=== PATIENT | female | born 1960 | race Caucasian/White ===

== ENCOUNTER 2021-02-28 09:18 | Emergency (ER) | payer MEDICARE, SELFPAY ==
[2021-02-28] VITALS (8 sets, daily range): BP systolic 133–164; BP diastolic 74–94; PULSE 87–102; RESP 16–18; TEMP 36.7–37.2; O2SAT 95–99
--- NOTE | ~2021-02-28 | XR_ITS ---
EXAMINATION: XR wrist LT min 3V, XR forearm LT 2V DATE: 02/28/2021 09:56 INDICATION: Left wrist pain and deformity post fall TECHNIQUE: 1. Posteroanterior, ulnar deviation, oblique, and lateral views of the affected wrist were obtained. 2. AP and lateral views of the left forearm were obtained. COMPARISON: none FINDINGS: Left wrist: 4 degrees dorsal displacement and 35 degrees dorsal angulation of a transverse extra-articular fractu re of the metaphysis of the distal left radius. Additional fracture across the base of the ulnar styl oid process which is minimally displaced but with some posterior angulation. No other fractures ident ified. The scapholunate angle appears increased however assessment is limited by the nonstandard posi tioning on the lateral projection resulting from the distal radial fracture. Mild osteoarthritis at t he midcarpal, triscaphe, first carpal metacarpal and first metacarpophalangeal joints. Prominent soft tissue swelling about the left wrist. Left forearm: Normal alignment and joint space at the left elbow with no elbow joint effusion. No fracture in the m ore proximal left forearm or distal humerus. IMPRESSION: 1. Dorsal displacement and angulation of an exophytic refraction the distal left radial metaphysis. 2. Nondisplaced posterior angulated ulnar styloid process fracture. 3. Increased scapholunate angle which could be seen with the tear of the scapholunate ligament victoriae r this could also be artifact of the nonstandard positioning resulting from the displaced and angulat ed radial fracture. Recommend attention on subsequent radiograph following appropriate reduction. Reviewed, dictated and finalized at location A. IMPRESSION: 1. Dorsal displacement and angulation of an exophytic refraction the distal lef t radial metaphysis. 2. Nondisplaced posterior angulated ulnar styloid process fracture. 3. Increased scapholunate angle which could be seen with the tear of the scapho lunate ligament however this could also be artifact of the nonstandard position ing resulting from the displaced and angulated radial fracture. Recommend atten tion on subsequent radiograph following appropriate reduction.
--- NOTE | ~2021-02-28 | XR_ITS ---
EXAMINATION: XR wrist LT 2V DATE: 02/28/2021 11:46 INDICATION: Postreduction left wrist fracture. TECHNIQUE: Posteroanterior and lateral views of the left wrist were obtained. COMPARISON: 02/28/2021 9:46 AM FINDINGS: Interval reduction and splinting of the extraocular fracture at the distal metaphysis of the left rad ius. Slight decrease in the dorsal displacement now measuring 3 mm and mild decrease in now 25 degree s dorsal angulation. No significant change in a minimally displaced ulnar styloid avulsion fracture. No other fractures identified. Again seen is borderline increased scapholunate angle. 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 IMPRESSION: 1. Decrease in now 3 mm dorsal displacement and 25 degrees dorsal angulation of transverse extra johann cular fracture of the distal left radial metaphysis. 2. Unchanged mildly displaced ulnar styloid avulsion fracture. 3. Borderline increased scapholunate angle. Reviewed, dictated and finalized at location A. IMPRESSION: 1. Decrease in now 3 mm dorsal displacement and 25 degrees dorsal angulation of transverse extra articular fracture of the distal left radial metaphysis. 2. Unchanged mildly displaced ulnar styloid avulsion fracture. 3. Borderline increased scapholunate angle.
[2021-02-28] MEDS: MORPHINE SULFATE (*CRX) 4 MG/ML INJ IV PUSH (10:41)
[2021-02-28] MEDS: MIDAZOLAM HCL (*CRX) 2 MG/2 ML VIAL 4 MG (11:30)
[2021-02-28] MEDS: fentaNYL CITRATE INJ (*CRX) 100 MCG/2 ML VIAL ×2 (11:30→11:36)
--- NOTE | 2021-02-28 12:45 | ED.UPPEXIN ---
HPI - Extremity Injury (Upper) General Chief Complaint: Extremity Injury, Upper Stated Complaint: arm injury/fall Time Seen by Provider: 02/28/21 10:30 Source: patient Mode of arrival: ambulatory Limitations: no limitations History of Present Illness HPI narrative: 60-year-old with no major medical problems here with complaints of left wrist pain. Patient states that she lost her balance and fell last night after drinking some wine. She denies any other injuries. MD complaint: injury to: left and wrist Onset (ago): day(s) (1) Other injuries: none Handedness: right Place: home Severity: moderate Severity scale (1-10): 6 Relieving factors: none and immobilization Exacerbating factors: movement of extremity Context: fall Associated symptoms: denies other symptoms Related Data Home Medications Medication Instructions Recorded Confirmed celecoxib [Celebrex] 100 mg PO BID 02/28/21 sertraline [Zoloft] 100 mg PO DAILY 02/28/21 Allergies Allergy/AdvReac Type Severity Reaction Status Date / Time No Known Allergies Allergy Unknown NONE Verified 02/28/21 10:18 Review of Systems Review of Systems: All systems reviewed & are unremarkable except as noted in HPI and below Constitutional: Constitutional: Reports no additional constitutional complaints Eyes: Eyes: Reports no additional eye complaints ENT: Reports system reviewed and no additional complaints, except as documented Cardiovascular: Cardiovascular: Reports no additional cardiovascular complaints Respiratory: Respiratory: Reports no additional respiratory complaints Musculoskeletal: Musculoskeletal: Reports as per HPI Integumentary/Breasts: Skin/Breast: Reports system reviewed and no additional complaints, except as docu Neurologic: Reports system reviewed and no additional complaints, except as documented Exam Narrative: Exam Narrative: GENERAL: Well-appearing, well-nourished, and in no acute distress. HEAD: Normocephalic, atraumatic. EYES: PERRLA and EOMI. NECK: Supple. CHEST: Clear to auscultation. No respiratory distress. HEART: Regular rate and rhythm. No murmur heard. Normal peripheral pulses. ABDOMEN: Soft, nontender, nondistended, normal active bowel sounds. EXTREMITIES: Normal range of motion. No edema. SKIN: Warm, dry, no rash. NEURO: No focal deficits. Alert and oriented x3. PSYCH: Normal mood and affect. Course Course Emergency Course: Inform patient about her x-ray findings needs reduction. Informed her that we would give her sedation for which she agreed. Vital Signs Vital signs: Vital Signs Temperature 37.2 C 02/28/21 09:21 Pulse Rate 102 H 02/28/21 09:21 Respiratory Rate 16 02/28/21 09:21 Blood Pressure 156/91 H 02/28/21 09:21 Pulse Oximetry 99 02/28/21 09:21 Temperature 36.8 C 02/28/21 11:58 Pulse Rate 92 02/28/21 11:58 Respiratory Rate 16 02/28/21 11:58 Blood Pressure 143/83 H 02/28/21 11:58 Pulse Oximetry 99 02/28/21 11:58 Procedures Orthopedic Fracture Reduction Fracture #1: Fracture Reduction date: 02/28/21 Time Out Performed: Yes Side: left Fracture Reduction Location: other (Left wrist) Analgesia: other (50 fentanyl IV and 4 Versed was given) Pre-Procedure Neuro Vascular Exam: abnormal Technique: traction/counter-traction Post Reduction X-rays Demonstrate: acceptable reduction Post-reduction neuro exam: intact Post-reduction vascular exam: intact Splint Applied: Yes Patient Tolerated Procedure: well MDM - Extremity Injury (Upper) Imaging Data Radiologist's impression: ITS Impressions Forearm X-Ray 02/28/21 09:58 IMPRESSION: 1. Dorsal displacement and angulation of an exophytic refraction the distal left radial metaphysis. 2. Nondisplaced posterior angulated ulnar styloid process fracture. 3. Increased scapholunate angle which could be seen with the tear of the scapholunate ligament however this could
== END 2021-02-28 13:03 | disposition home or self-care (01) ==
PROVIDERS: Emergency Provider Family Medicine; PCP Family Medicine
DX: S52.552A Other extraarticular fracture of lower end of left radius, initial encounter for closed fracture (principal); W01.0XXA Fall on same level from slipping, tripping and stumbling without subsequent striking against object, initial encounter
CPT/HCPCS: 25605; 73090; 73100; 73110; 96374; 99285; A4565; J2250; J2270; J3010; J7030

== ENCOUNTER → 2021-03-04 02:15 | Outpatient (CLI) | payer MEDICARE, SELFPAY ==
[2021-03-05 14:19] LABS: SARS-CoV-2 RNA PCR Negative
== END ==
PROVIDERS: PCP Family Medicine; Visit Provider Orthopaedic Surgery
DX: Z01.812 Encounter for preprocedural laboratory examination (principal); Z20.822 Contact with and (suspected) exposure to COVID-19
CPT/HCPCS: C9803; U0003; U0005

== ENCOUNTER 2021-03-05 08:08 | Outpatient (CLI) | payer MEDICARE, SELFPAY ==
--- NOTE | 2021-03-05 08:00 | ECG_ITS ---
Measurements Intervals [place] Rate: 88 P: 70 MO: 163 QRS: 55 QRSD: 94 T: 39 QT: 366 QTc: 443 Interpretive Statements SINUS RHYTHM POSSIBLE LEFT ATRIAL ENLARGEMENT POSSIBLE LEFT VENTRICULAR HYPERTROPHY DELAYED PRECORDIAL R/S TRANSITION BASELINE ARTIFACT- V5-V6 BORDERLINE ECG Electronically Signed On 03-05-2021 8:28:24 CDT by Dedrick Domínguez D.O.
== END 2021-03-05 08:09 | disposition home or self-care (01) ==
LOC: ANHSURGERY 08:11
PROVIDERS: PCP Family Medicine; Visit Provider Orthopaedic Surgery
DX: Z01.810 Encounter for preprocedural cardiovascular examination (principal); F17.210 Nicotine dependence, cigarettes, uncomplicated
CPT/HCPCS: 93005

== ENCOUNTER 2021-03-06 01:24 | Day surgery (SDC) | payer MEDICARE, SELFPAY ==
[2021-03-03 15:10] VITALS: BMI 22.8
--- NOTE | 2021-03-05 12:37 | WPDANESEPPF ---
Anes - Initial Pre Proc Eval Procedure: Operation Date: 03/06/21 10:30 Proposed Procedures p Open Reduction Internal Fixation Left Distal Radius Fracture - Esteban English MD Date/Time: 03/05/21 12:37 Surgeon: Esteban English MD Pre Op Diagnosis: Left distal radius fracture Patient Data Age: 60 Gender: F Height: 1.57 m Weight: 56.8 kg Allergies Allergy/AdvReac Type Severity Reaction Status Date / Time No Known Allergies Allergy Unknown NONE Verified 03/06/21 09:17 Home Medications Medication Instructions Recorded Confirmed Type celecoxib [Celebrex] 100 mg PO BID 02/28/21 03/06/21 History sertraline [Zoloft] 100 mg PO QAM 02/28/21 03/06/21 History hydrocodone 5 mg-acetaminophen 325 1 tablet PO Q6H PRN #40 tablet 03/03/21 03/06/21 Rx mg tablet Patient hx anesthesia problems: none Family hx anesthesia problems: none PMFSH Past Medical History Medical History Depression Fracture of distal radius and ulna Smoker Surgical History Surgical History (Updated 03/05/21 @ 08:53 by Phuong Macdonald) History of appendectomy History of History of hernia repair History of hysterectomy History of parathyroidectomy Social History Social History Smoking packs per day: 0.5 Smoking cigarettes per day: 10.0 Years smoked: 40 Smoking pack-years: 20.00 Smoking status: Current every day smoker Tobacco type: cigarettes Second hand tobacco smoke exposure: Yes Alcohol intake: current Drinks per week: 4 Substance use: never Substance use type: does not use Living arrangements: with family Spiritual care concerns: No Anes - Eval Final PreProcedure Day of Procedure 03/05/21 12:37 Patient weight: normal Heart: regular rate and rhythm Lungs: clear to auscultation and normal air movement Airway: Mallampati scale class II Neurological: alert and oriented Last oral intake: >/= 8 hours ASA classification: II Emergent: no Anesthetic plan: proceed Anesthesia type and monitoring: general LMA Informed Consent: The patient's anesthetic plan and its attendant risks and benefits were discussed with the patient/family/POA. Questions were solicited and answers provided to the satisfaction of the patient/family/POA.
--- NOTE | ~2021-03-06 | XR_ITS ---
EXAMINATION: XR surgery orthopedic DATE: 03/06/2021 12:51 INDICATION: ORIF left wrist fracture TECHNIQUE: 3 fluoroscopic images of the left wrist were obtained during procedure performed by Dr. Hellen cee. Radiologist was not present for the imaging or procedure. The amount of fluoroscopy time us ed during this procedure was 1.1 minutes. COMPARISON: 02/28/2021 FINDINGS: Interval open reduction and volar T plate and screw fixation of the extra articular distal left radia l metaphyseal fracture which is now in near-anatomic alignment. Ulnar styloid avulsion fracture with no significant change in mild medial distraction. Normal alignment and joint spaces of the visualized left carpus. Expected small amount of postoperative gas in the soft tissues of the distal forearm. IMPRESSION: 1. Near-anatomic alignment post volar T plate and screw fixation of the extra-articular distal left r adial fracture. 2. Unchanged mild distraction of an unfixed ulnar styloid avulsion fracture. Reviewed, dictated and finalized at location A. IMPRESSION: 1. Near-anatomic alignment post volar T plate and screw fixation of the extra-a rticular distal left radial fracture. 2. Unchanged mild distraction of an unfixed ulnar styloid avulsion fracture.
[2021-03-06 08:50] VITALS: BP 136/77; PULSE 95; RESP 18; TEMP 36.2; O2SAT 96
[2021-03-06] MEDS: LACTATED RINGERS 1,000 ML 30 ML IV CONT ×2 (09:07→13:07)
--- NOTE | 2021-03-06 10:49 | WPDHPUPDATE1 ---
History and Physical Update Update Date/Time: 03/06/21 10:49 Proceed with open reduction and internal fixation, left distal radius. History and Physical has been reviewed, including an updated exam of the patient. There are NO changes in the patient's condition. Risks, benefits, and alternatives have been discussed and questions answered. Patient agrees to proceed with procedure.
--- NOTE | 2021-03-06 11:23 | WPDANESPNB ---
Anes - Peripheral Nerve Block Date/Time: 03/06/21 11:23 I have discussed with the patient/family/POA the placement of a peripheral nerve block for post-operative pain management, including associated risks, benefits, complications, and side effects. Alternative methods of post-operative analgesia were detailed. Questions were solicited and answers provided to the satisfaction of the patient/family/POA. Time-Out: A pre-procedural Time-Out was completed immediately before starting the procedure and confirmed: Patient Identification, Site, Procedure, Patient Position and the Availability of Requisite Equipment. Clinical Indications: Acute post-operative pain management requested by the operative surgeon. Nerve Block Insertion Note Anes-nerve block: supraclavicular left Patient position: supine Skin prep: chlorhexidine Needle: 22 gauge, stimulating, insulated echogenic needle. Needle length: 80 mm Technique: ultrasound (in plane) Injectate: bupivacaine 0.5% with epi 5 mcg/ml (20cc) Observations: tolerated well Complications: none Procedure start time:: 1115 Procedure end time:: 1120
[2021-03-06] MEDS: ceFAZolin 2 GM/D5W 50 ML 2 GM/50 ML BAG IVPB (11:27)
[2021-03-06 13:07] VITALS: BP 139/84; PULSE 99; RESP 14; TEMP 36.4; O2SAT 100
[2021-03-06 13:20] VITALS: BP 136/75; PULSE 89; RESP 12; O2SAT 100
[2021-03-06 13:35] VITALS: BP 131/81; PULSE 98; RESP 16; O2SAT 94
[2021-03-06 13:45] VITALS: BP 141/58; PULSE 101; RESP 20
[2021-03-06 14:15] VITALS: BP 131/74; PULSE 97; RESP 20
--- NOTE | 2021-03-06 14:33 | P.OP_ITS ---
Procedure Note - Detailed Date of Procedure 03/06/21 Pre-op Diagnosis Left distal radius and ulnar styloid fractures Post-op Diagnosis same Procedure Performed ORIF distal radius extraarticular fracture. Surgeon Esteban English MD Helicopter Repairer Mini Nevarez PA-C Anesthesia general and regional Indications Displaced, unstable distal radius extra-articular fracture with minimally displaced ulnar styloid fragment. Findings Anatomic reduction. Good bone quality. Description of Procedure Physician surgical services assistant, Mini Nevarez PA-C, required for surgery; including patient positioning, draping, tissue retraction, maintaining instrument position, assisting fracture reduction and provisional pin placement, wound closure. Operative details: Preoperative antibiotics were given. A general anesthetic was administered. The hand was prepped and draped in the usual sterile fashion with a well-padded tourniquet. The limb was exsanguinated and the tourniquet inflated to 250 millimeters of mercury. A longitudinal incision was created over the flexor carpi radialis tendon. Dissection was brought down through the sheath. The pronator quadratus was identified and released off of the radius. The fracture was carefully exposed and cleared of debris. Reduction was obtained with traction and manipulation. Fluoroscopy was used to confirm anatomic reduction. The volar plate was placed on the radius and the position was confirmed. A provisional pin were placed. The dynamic cortical screw was applied. The plate was fine tuned and fluoroscopy was use to confirm that the joint would not be violated. Subsequent distal pins and screws were placed, followed by the proximal screws. The wound was irrigated and closed. #1 Vicryl suture was used to reapproximate the pronator quadratus. The tourniquet was released and meticulous hemostasis was confirmed. The skin was closed with 3-0 Monocryl suture and a running 4-0 Monocryl suture. Steri-Strips were applied on the skin. A sterile bulky dressing with a volar splint was applied. Implants [employer] volar locking plate. Narrow. Estimated Blood Loss -30.0 Drains No Pathology none sent Complications No immediate complications Condition stable Disposition PACU
== END 2021-03-06 14:40 | disposition home or self-care (01) ==
PROVIDERS: PCP Family Medicine; Visit Provider Orthopaedic Surgery
PROC: (CPT 25575; principal; 2021-03-06 10:30)
DX: S52.552A Other extraarticular fracture of lower end of left radius, initial encounter for closed fracture (principal); S52.612A Displaced fracture of left ulna styloid process, initial encounter for closed fracture; F32.9 Major depressive disorder, single episode, unspecified; F17.210 Nicotine dependence, cigarettes, uncomplicated; G89.18 Other acute postprocedural pain; W19.XXXA Unspecified fall, initial encounter
CPT/HCPCS: 25607; 64415; 93005; A4565; C9803; J0690; J1100; J2250; J2405; J2704; J3010; J7120; U0003; U0005

== ENCOUNTER 2022-06-26 09:47 | Outpatient (CLI) | payer MEDICARE, SELFPAY ==
--- NOTE | ~2022-06-26 | XR_ITS ---
EXAMINATION:XR_CERV2-3V_CR DATE: 06/26/2022 10:13 INDICATION: Cervical spondylosis with myelopathy TECHNIQUE: AP, lateral, and odontoid views of the cervical spine are provided. COMPARISON: None FINDINGS: There are 2 mm of retrolisthesis of C5 on C6. There are changes of anterior fusion at C5-6. The odontoid is intact. No fracture is identified. The vertebral body heights are maintained. There is moderate loss of intervertebral disc space height at C6-7. Prevertebral soft tissues are normal. T here is moderate multilevel facet and uncovertebral joint osteoarthritis. IMPRESSION: 1. Changes of anterior fusion at C5-6 and mild to moderate cervical spondylosis without acute finding s. Reviewed, dictated and finalized at location F. IMPRESSION: 1. Changes of anterior fusion at C5-6 and mild to moderate cervical spondylosis without acute findings.
== END 2022-06-26 09:48 | disposition home or self-care (01) ==
LOC: ANHIMG 09:51
PROVIDERS: PCP Family Medicine; Visit Provider Neurological Surgery
DX: M47.22 Other spondylosis with radiculopathy, cervical region (principal); Z98.1 Arthrodesis status
CPT/HCPCS: 72040

== ENCOUNTER 2023-01-15 10:40 | Outpatient (CLI) | payer MEDICARE, SELFPAY ==
--- NOTE | ~2023-01-15 | XR_ITS ---
Cervical Spine: AP, lateral, open-mouth views Clinical History: Spondylosis COMPARISON: 06/26/2022 Findings: Stable anterior fusion across the C5-C6 disc space, with stable hardware. Osseous alignment is unchanged, probable grade 1 retrolisthesis of C5 over C6. There is severe degenerative disc narro wing at C6-C7. Impression: No significant interval change. Stable anterior fusion changes at C5-C6. Stable osseous alignment. Advanced degenerative disc narrowing at C6-C7. Reviewed, dictated and finalized at [facility]. Impression: No significant interval change. Stable anterior fusion changes at C5-C6. Stable osseous alignment. Advanced degenerative disc narrowing at C6-C7.
== END 2023-01-15 10:41 | disposition home or self-care (01) ==
PROVIDERS: PCP Family Medicine; Visit Provider Neurological Surgery
DX: M47.812 Spondylosis without myelopathy or radiculopathy, cervical region (principal); M50.323 Other cervical disc degeneration at C6-C7 level; Z98.1 Arthrodesis status
CPT/HCPCS: 72040

== ENCOUNTER 2023-11-05 12:41 | Inpatient (IN) | payer MEDICARE, SELFPAY ==
[2023-11-05] VITALS (36 sets, daily range): BP systolic 93–150; BP diastolic 67–98; PULSE 89–124; RESP 12–30; TEMP 35.6–37.8; O2SAT 96–100; BMI 23.1
--- NOTE | ~2023-11-05 | XR_ITS ---
EXAMINATION: XR chest 1V portable DATE: 11/15/2023 06:09 INDICATION: Left pneumothorax. TECHNIQUE: A single frontal view of the chest was obtained. COMPARISON: Chest single view 11/14/2023 FINDINGS: There are airspace opacities in the lower lung zones. There is a small left pneumothorax. T here are small pleural effusions. The heart size is normal. There is a left chest pacer/defibrillator with lead in right ventricle. IMPRESSION: 1. Stable small left pneumothorax. 2. Stable airspace opacities in the lower lung zones, likely atelectasis. 3. Stable small pleural effusions. Reviewed, dictated and finalized at location E. ER
--- NOTE | ~2023-11-05 | XR_ITS ---
EXAMINATION: XR chest 1V portable DATE: 11/13/2023 05:38 INDICATION: Left pneumothorax. TECHNIQUE: A single frontal view of the chest was obtained. COMPARISON: Chest single view 11/12/2023 FINDINGS: There are airspace opacities in right mid and lower lung zones and left lower lung zone. Th ere is a small left pneumothorax. There is a small right pleural effusion. The heart size is normal. There is a left chest pacer/defibrillator with lead in right ventricle. IMPRESSION: 1. Small left pneumothorax with slight improvement. 2. Worsened airspace opacities in right mid and lower lung zones and left lower lung zone, consistent with atelectasis versus pneumonia. 3. Stable small right pleural effusion. Reviewed, dictated and finalized at location A. TER OPERATOR
--- NOTE | ~2023-11-05 | XR_ITS ---
XR chest 1V portable 11/07/2023 05:34 Indication: Respiratory failure Procedure: AP portable chest Comparison: Comparison to multiple prior studies sequentially, with oldest reviewed study dated 11/05. Findings: Heart size normal. Endotracheal tube tip 4.4 cm above the marli. NG tube in the stomach. N o focal air space disease, pulmonary edema, pleural effusion or suspected pneumothorax. Impression: 1: No acute cardiopulmonary disease. Reviewed, dictated and finalized at location A. PROSPECTING OBSERVER Impression: 1: No acute cardiopulmonary disease.
--- NOTE | ~2023-11-05 | XR_ITS ---
EXAMINATION: XR chest 1V portable DATE: 11/14/2023 05:41 INDICATION: Left pneumothorax. TECHNIQUE: A single frontal view of the chest was obtained. COMPARISON: Chest view 11/13/2023 FINDINGS: There is a small left pneumothorax. There are airspace opacities in right mid and lower lawrence g zones and left lower lung zone. There are small pleural effusions. The heart size is normal. There is a left chest pacer/defibrillator with lead in right ventricle. IMPRESSION: 1. Worsened small left pneumothorax. 2. Stable airspace opacities in right mid and lower lung zones and left lower lung zone, consistent w ith atelectasis versus pneumonia. 3. Small pleural effusions with worsening on the left. Reviewed, dictated and finalized at location A. ROL CHEMIST IMPRESSION: 1. Worsened small left pneumothorax. 2. Stable airspace opacities in right mid and lower lung zones and left lower l jose antonio zone, consistent with atelectasis versus pneumonia. 3. Small pleural effusions with worsening on the left.
--- NOTE | ~2023-11-05 | XR_ITS ---
Portable chest x-ray Comparison: 11/07/2023 Clinical History: Respiratory failure Findings: NG tube in place. Probable COPD. Clear lungs. Cardiomediastinal silhouette is stable. Bon es and soft tissues are unremarkable. Impression: NG tube in place. Clear lungs. Probable COPD. Reviewed, dictated and finalized at location . CTION PRESS OPERATOR Impression: NG tube in place. Clear lungs. Probable COPD.
--- NOTE | ~2023-11-05 | CT_ITS ---
EXAMINATION: CTA chest PE protocol DATE: 11/05/2023 14:47 INDICATION: Sudden onset shortness of breath, cardiac arrest TECHNIQUE: Computed tomography angiography (CTA) of the chest was performed with 100 mL Omnipaque-350 intravenous contrast timed to evaluate the pulmonary arteries. Coronal maximum intensity projection 3D-reconstructions were created by the technologist. The dose-length product (DLP) was 222.93 mGy-cm. Automated exposure control and iterative reconstruction technique were employed. COMPARISON: None. FINDINGS: The pulmonary arteries are well-opacified. Respiratory motion limits evaluation of the colton pheral pulmonary arterial branches. No central pulmonary embolus is identified. There is mild depende nt atelectasis. No pleural effusion or pneumothorax. Cardiomegaly is noted. There is calcified rodriguez ry artery atherosclerosis. The endotracheal tube is approximately 1.6 cm above the marli. The nasoga stric tube is followed as far as the stomach. There is moderate thoracic spondylosis. There are parti ally imaged changes of anterior fusion in the lower cervical spine. IMPRESSION: 1. No central pulmonary embolus identified. Respiratory motion limits evaluation of peripheral pulmon pierce arterial branches. Reviewed, dictated and finalized at location B. II BLOCKER IMPRESSION: 1. No central pulmonary embolus identified. Respiratory motion limits evaluatio n of peripheral pulmonary arterial branches.
--- NOTE | ~2023-11-05 | XR_ITS ---
EXAMINATION: XR chest 1V portable DATE: 11/16/2023 05:49 INDICATION: Left pneumothorax. TECHNIQUE: A single frontal view of the chest was obtained. COMPARISON: Chest single view 11/15/2023, chest CT 11/05/2023 FINDINGS: There is mild atelectasis in the lower lung zones. There is a small left pneumothorax. No p leural effusion. The heart size is normal. There is a left chest pacer/defibrillator with lead in rig ht ventricle. There are changes of anterior fusion procedure in cervical spine. IMPRESSION: 1. Improved small left pneumothorax. 2. Improved mild atelectasis in the lower lung zones. Reviewed, dictated and finalized at location E. METER REPAIRER
--- NOTE | ~2023-11-05 | XR_ITS ---
EXAMINATION: XR chest 1V portable DATE: 11/11/2023 14:19 INDICATION: ICD insertion TECHNIQUE: frontal view of the chest was obtained. COMPARISON: Chest radiograph dated 11/11/2023 at 5:23 AM FINDINGS: New left-sided single lead cardiac pacemaker/defibrillator with lead tip projecting over the apex of the right ventricle. Decreased opacity right lower lung zone most likely atelectasis although differe ntial includes pneumonia. No pulmonary edema, pneumothorax or definitive pleural effusion. The cardio mediastinal silhouette is normal. Instrumented lower cervical anterior spinal fusion. Additional plai n screw fixation at the distal left radius. IMPRESSION: 1. Single lead cardiac pacemaker/defibrillator in expected position with lead tip projecting over the apex of the right ventricle. 2. Improvement in opacities at the right lower lung zone which could represent atelectasis or less li nasim pneumonia. Reviewed, dictated and finalized at location L. SKIMMER IMPRESSION: 1. Single lead cardiac pacemaker/defibrillator in expected position with lead t ip projecting over the apex of the right ventricle. 2. Improvement in opacities at the right lower lung zone which could represent atelectasis or less likely pneumonia.
--- NOTE | ~2023-11-05 | XR_ITS ---
EXAMINATION: XR chest 1V portable Exam Date/Time: 11/14/2023 15:28 ASSOCIATE PROFESSOR OF ENGLISH HISTORY: Follow-up pneumothorax Comparison: 11/14/2023 at 5:37 AM. RESULT: Lines, tubes, and devices: Left chest pacer/AICD with intact lead. Lungs and pleura: Stable small left pneumothorax. Stable right mid and lower lung opacities and righ t costophrenic angle blunting. Stable streaky left basilar opacities and minimal left costophrenic an gle blunting. Cardiomediastinal silhouette: Stable. Other: No acute osseous or upper abdominal finding. IMPRESSION: Stable small left pneumothorax. Stable pulmonary opacities. Reviewed, dictated and finalized at location K. CIATE PROFESSOR OF ENGLISH
--- NOTE | ~2023-11-05 | XR_ITS ---
EXAMINATION: XR chest ET placement INDICATION: Cardiac arrest TECHNIQUE: Portable AP chest at 1310 hours COMPARISON: None FINDINGS: The endotracheal tube projects at the marli. There are retrocardiac airspace opacities on the left. The nasogastric tube is followed as far as the stomach. Its tip is beyond the inferior lázaro in of the radiograph. No pleural effusion or pneumothorax. IMPRESSION: 1. Endotracheal tube projecting at the marli. Tube has been adjusted at the time of interpretation. 2. Retrocardiac airspace opacities on the left, consistent with atelectasis versus pneumonia. Reviewed, dictated and finalized at location B. NDED DAY TEACHER IMPRESSION: 1. Endotracheal tube projecting at the marli. Tube has been adjusted at the ti me of interpretation. 2. Retrocardiac airspace opacities on the left, consistent with atelectasis flaquito yoli pneumonia.
--- NOTE | ~2023-11-05 | XR_ITS ---
Portable chest x-ray Comparison: 11/09/2023 Clinical History: Respiratory failure Findings: There is mild patchy airspace disease the right lung base. Left lung clear. Cardiomediast inal silhouette is stable. Bones and soft tissues are unremarkable. Impression: Right basilar atelectasis/pulmonary edema versus pneumonia. Reviewed, dictated and finalized at [facility]. ICAL INSTRUMENT MAKER Impression: Right basilar atelectasis/pulmonary edema versus pneumonia.
--- NOTE | ~2023-11-05 | XR_ITS ---
EXAMINATION: XR chest 1V portable INDICATION: Pneumothorax TECHNIQUE: Portable AP chest at 1950 hours COMPARISON: 1319 hours FINDINGS: There is a small left pneumothorax without significant change. There are small pleural effu sions, right greater than left. Right basilar airspace opacities persist without significant change. The heart size is normal. A single lead pacemaker of the left chest wall ends with leads in the right ventricle. IMPRESSION: 1. Small left pneumothorax without significant change. 2. Small pleural effusions, stable. 3. Right basilar airspace opacities without significant change, consistent with atelectasis versus pn eumonia. Reviewed, dictated and finalized at location F. FLOW REGULATOR IMPRESSION: 1. Small left pneumothorax without significant change. 2. Small pleural effusions, stable. 3. Right basilar airspace opacities without significant change, consistent with atelectasis versus pneumonia.
--- NOTE | ~2023-11-05 | XR_ITS ---
EXAMINATION: XR chest 2V DATE: 11/12/2023 13:22 INDICATION: Implanted cardiac defibrillator placement. TECHNIQUE: Frontal and lateral views of the chest were obtained. COMPARISON: Chest single view 11/11/2023, chest CT 11/05/2023 FINDINGS: There are airspace opacities at right lung base. There are small pleural effusions. There i s a small left pneumothorax. The heart size is normal. There is a left chest pacer/defibrillator with lead in right ventricle. There are changes of anterior fusion procedure in cervical spine. IMPRESSION: 1. Small pleural effusions. 2. Worsened airspace opacities at right lung base, consistent with atelectasis versus pneumonia. 3. Small left pneumothorax. Reviewed, dictated and finalized at location A. H ROOM TECHNICIAN
--- NOTE | ~2023-11-05 | XR_ITS ---
Portable chest x-ray Comparison: 11/10/2023 Clinical History: Respiratory failure Findings: There is hazy airspace disease at the right lung base. Left lung clear. Cardiomediastinal silhouette is stable. Bones and soft tissues are unremarkable. Impression: Probable right basilar pneumonia versus possibly atelectasis. Reviewed, dictated and finalized at [facility]. DING ARCHITECTURAL DESIGNER Impression: Probable right basilar pneumonia versus possibly atelectasis.
--- NOTE | ~2023-11-05 | CT_ITS ---
EXAMINATION: CT brain wo con INDICATION: Cardiac arrest COMPARISON: None TECHNIQUE: Standard unenhanced head CT. The dose-length product (DLP) was 681.00 mGy-cm. The mA was a djusted according to patient size. Iterative reconstruction technique was employed. FINDINGS: No intracranial hemorrhage, acute infarction, or abnormal mass lesion. The ventricles are n ormal. No abnormal mass effect or midline shift. The tao-white matter differentiation is normal. The basal cisterns are patent. The orbits are normal. The paranasal sinuses, mastoids and calvarium are normal. IMPRESSION: 1. No acute intracranial abnormality. Reviewed, dictated and finalized at location B. OPERATIONS ADVISOR
--- NOTE | ~2023-11-05 | XR_ITS ---
XR chest 1V portable 11/06/2023 08:17 Indication: Respiratory failure Procedure: AP portable chest Comparison: 11/05/2023 Findings: Heart size normal. Endotracheal tube tip approximately 4.4 cm above the marli, although ob scured by overlying NG tube. NG tube in the stomach. No focal air space disease, pulmonary edema, ple ural effusion or suspected pneumothorax. Impression: 1: No acute cardiopulmonary disease. Reviewed, dictated and finalized at location A. ET PRINTING PRESSMEN Impression: 1: No acute cardiopulmonary disease.
--- NOTE | ~2023-11-05 | XR_ITS ---
Portable chest x-ray Comparison: 11/08/2023 Clinical History: Respiratory failure Findings: Lungs are clear, without focal consolidation or pleural effusion. Possible COPD. Cardiome diastinal silhouette is stable. Bones and soft tissues are unremarkable. Impression: Clear lungs. Possible COPD. Reviewed, dictated and finalized at [facility]. K MECHANIC Impression: Clear lungs. Possible COPD.
--- NOTE | ~2023-11-05 | XR_ITS ---
EXAMINATION: XR chest 1V portable INDICATION: Cardiac arrest, ET adjustment TECHNIQUE: Portable AP chest at 1312 hours COMPARISON: 1310 hours FINDINGS: The endotracheal tube has been slightly withdrawn and now ends 1.5 cm above the marli. The nasogastric tube is followed as far as the stomach. Its tip is beyond the inferior margin of the rad iograph. Retrocardiac airspace opacities of the left lung base are unchanged. No pleural effusion or pneumothorax. The heart size is normal. IMPRESSION: 1. Repositioned endotracheal tube ending approximately 1.5 cm above the marli. 2. Retrocardiac airspace opacities, consistent with atelectasis versus pneumonia. Reviewed, dictated and finalized at location B. ERING MACHINE TENDER HELPER IMPRESSION: 1. Repositioned endotracheal tube ending approximately 1.5 cm above the marli. 2. Retrocardiac airspace opacities, consistent with atelectasis versus pneumoni a.
--- NOTE | 2023-11-05 12:54 | PC.NURSE ---
12:54 Pt given 4 mg versed and 100 mg succinylcholine Pt intubated by FABIANO Jaramillo, hospitalist with 7.5 tube, 25 at the lip
--- NOTE | 2023-11-05 12:56 | ECG_ITS ---
Measurements Intervals [place] Rate: 101 P: 15 GA: 186 QRS: 103 QRSD: 194 T: 16 QT: 390 QTc: 506 Interpretive Statements SINUS TACHYCARDIA BASELINE ARTIFACT RIGHT AXIS DEVIATION [QRS AXIS > 100] RIGHT BUNDLE BRANCH BLOCK [120+ ms QRS DURATION, UPRIGHT V1, 40+ ms S IN I/aVL/V4/V5/V6] DIFFUSE ST ABNORMALITY CONSIDER MYOCARDIAL ISCHEMIA INFERIOR AND ANTEROLATERAL LEADS ABNORMAL ECG COMPARED TO ECG 03/05/2021 08:23:21 SINUS TACHYCARDIA NOW PRESENT RIGHT BUNDLE-BRANCH BLOCK NOW PRESENT Electronically Signed On 11-06-2023 14:31:15 NET REPAIRER by Haroldo Batres M.D.
[2023-11-05 13:09] LABS: Hematocrit 41.7 % (37.0-47.0); Hemoglobin 12.9 g/dL (12.0-15.0); Mean Corpuscular HGB Conc 30.9 g/dl (32-36); Mean Corpuscular Hemoglobin 29.4 pg (26-34); Mean Platelet Volume 9.9 fl (7.4-10.4); Platelet Count Result 196 k/mm3 (150-375); Red Blood Count 4.39 M/mm3 (4.2-5.4); Red Cell Distribution Width 13.2 % (11.5-14.5); White Blood Count 7.7 K/mm3 (4.5-10.0)
--- NOTE | 2023-11-05 13:14 | ED.CPR ---
HPI - CPR General Chief Complaint: Cardiac Arrest/CPR Stated Complaint: ROSC Time Seen by Provider: 11/05/23 13:14 History of Present Illness HPI narrative: Patient was sitting watching TV suddenly leaned backward, eyes rolled up, mouth open, gasping for air, no CPR started, 5 minutes later EMT arrived and CPR was started. Patient was shocked twice, monitor showing VFib/ V-tach, on arrival to the ED no pulse, CPR was in progress. patient arrived to the ER 35-40 minutes after the beginning of CPR Was told that patient had tooth removed few days ago and started on antibiotic. Related Data Home Medications Medication Instructions Recorded Confirmed sertraline 100 mg tablet (Zoloft) 100 mg PO QAM 02/28/21 11/05/23 rosuvastatin 5 mg tablet 5 mg PO DAILY 06/26/22 11/05/23 Allergies Allergy/AdvReac Type Severity Reaction Status Date / Time No Known Allergies Allergy Unknown NONE Verified 06/26/22 10:29 Review of Systems Review of Systems: ROS unobtainable: Yes unobtainable due to medical condition PMFSH Past Medical History Medical History Acquired cervical spine ankylosis ACDF @ C5-C6 Depression Fracture of distal radius and ulna HLD (hyperlipidemia) Smoker Surgical History Surgical History History of appendectomy History of History of hernia repair History of hysterectomy History of parathyroidectomy Social History Social History Smoking packs per day: 1 Smoking cigarettes per day: 20.0 Years smoked: 40 Smoking pack-years: 40.00 Smoking status: Current some day smoker Tobacco type: cigarettes Second hand tobacco smoke exposure: No Alcohol intake: current Drinks per week: 4 Substance use: never Substance use type: does not use Living arrangements: with family Spiritual care concerns: No Exam Narrative: General appearance: Well-developed, well-nourished Skin: pale and cold Head: Normocephalic, nontraumatic Eyes: Clear conjunctiva , pupils white dilated not reactive to light bilaterally ENT: Oropharynx lot of clear frothy sputum Chest and respiratory: no air entry without CV are Heart: no heart sounds Abdomen: Soft, , no organomegaly, no bruises, no mass Neurologic: unresponsive, pulseless, CPR in process Course Consultations Consultation #1: DR PATEL CONSULT CARDIOLOGY GET CENTRAL LINE HYPOTHERMIA ICU PROTOCOL Date: 11/05/23 Time: 15:53 Vital Signs Vital signs: Vital Signs Pulse Oximetry 98 11/05/23 13:00 Oxygen Delivery Mechanical Ventilation 11/05/23 13:00 Fraction of Inspired Oxygen 100 11/05/23 13:00 Temperature 37.4 C 11/05/23 18:28 Pulse Rate 100 11/05/23 22:17 Respiratory Rate 23 H 11/05/23 22:17 Blood Pressure 116/67 11/05/23 22:17 Pulse Oximetry 100 11/05/23 20:03 Oxygen Delivery Mechanical Ventilation 11/05/23 20:03 Fraction of Inspired Oxygen 40 11/05/23 20:03 Procedures Central Line Placement Right Femoral: Central Line Date: 11/05/23 Discussed w/ the patient/family/POA,the placement of a central venous catheter, including its clinical necessity/indication & associated potential risks, benifits and alternatives.: Yes The patient/family/POA understand(s) and acknowledge(s) the need to proceed with central venous catheter insertion as an important element of the patient's clinical management.: Yes Time Out Performed: Yes (25) Patient Placed on Monitor/Pulse Ox: Yes Max. Sterile Barrier Technique: Caps, large sterile sheet and hand hygiene Central Line Pr
[2023-11-05 13:20] LABS: Alanine Aminotransferase 56 U/L (6-35); Alkaline Phosphatase 50 U/L (38-126); Anion Gap 13 mmol/L (8-16); Aspartate Amino Transferase 81 U/L (14-36); Bilirubin,Total 0.4 mg/dL (0.2-1.3); Blood Urea Nitrogen 11 mg/dL (7-17); Calcium 8.1 mg/dL (8.4-10.2); Carbon Dioxide 23 mmol/L (22-30); Chloride 96 mmol/L (98-107); Cholesterol 85 mg/dL (0-200); Estimated CRCL calculation 61 ml/min; Estimated Glomerular Filt Rate > 60; Glucose 310 mg/dL (65-110); HDL Direct 22 mg/dL; Potassium 3.2 mmol/L (3.4-5.0); Sodium 132 mmol/L (137-145); Triglycerides 142 mg/dL (<150)
--- NOTE | 2023-11-05 13:23 | PC.NURSE ---
1320: pt ET tube leaking. Dr. Nieto replacing with a size 8 tube. 25 at the lip pt give 4mg of versed, and 100 mg of succinylcholine vent settings- volume of 450, peep of 5, rate of 15.
[2023-11-05 13:31] LABS: INR 1.2; Prothrombin Time 16.1 Seconds (11.1-14.7)
[2023-11-05 13:32] LABS: LDL Cholesterol Direct 55 mg/dL; Partial Thromboplastin Time 34.7 SECONDS (22.3-36.8)
[2023-11-05 13:36] LABS: Troponin I 0.141 ng/mL (0.000-0.034)
[2023-11-05 13:40] LABS: Band Neutrophils Percent 1 % (0-6); Basophils Absolute Manual 0.15 K/mm3 (0.0-0.1); Basophils Percent Manual 2 % (0-1); Eosinophils Absolute Manual 0.15 K/mm3 (0.02-0.5); Eosinophils Percent Manual 2 % (0-4); Lymphocytes Absolute Manual 4.62 K/mm3 (1.1-4.5); Metamyelocytes Percent 4 %; Monocytes Absolute Manual 0.61 K/mm3 (0.1-0.90); Monocytes Percent Manual 8 % (3-9); Myelocytes Percent 17 %; Neutrophils Absolute Manual 0.53 K/mm3 (1.7-7.2); Neutrophils Percent Manual 6 % (46-73); Total Cells Counted 100
[2023-11-05 13:41] LABS: Atypical Lymphocytes Present; Large Platelets Present; Schistocytes None Seen (NORMAL); Smudge Cells MODERATE
[2023-11-05 14:03] LABS: Influenza A QL RT-PCR Negative (Negative); Influenza B QL RT-PCR Negative (Negative); RSV RNA, RT-PCR Negative (Negative); SARS-CoV-2 RNA PCR Negative (Negative)
[2023-11-05] MEDS: MIDAZOLAM HCL (*CRX) 2 MG/2 ML VIAL 4 MG IV PUSH (14:50)
--- NOTE | 2023-11-05 15:03 | ECG_ITS ---
Measurements Intervals [place] Rate: 119 P: 28 DC: 117 QRS: 38 QRSD: 102 T: 221 QT: 408 QTc: 575 Interpretive Statements SINUS TACHYCARDIA WITH SHORT DC INTERVAL ST DEVIATION AND MARKED T-WAVE ABNORMALITY, CONSIDER ANTEROLATERAL ISCHEMIA [-0.5+ mV T WAVE IN I/aVL/V3-V6] ST DEVIATION AND MODERATE T-WAVE ABNORMALITY, CONSIDER INFERIOR ISCHEMIA [-0.1+ mV T WAVE IN II/aVF] ABNORMAL ECG COMPARED TO ECG 11/05/2023 13:08:03 ST ABNORMALITIES MORE PRONOUNCED Electronically Signed On 11-06-2023 14:35:42 DOCUMENT MANAGEMENT CONSULTANT by Haroldo Batres M.D.
[2023-11-05] MEDS: PROPOFOL IV EMULSION 100 ML 1.89 MG IV CONT (15:42)
[2023-11-05 16:07] LABS: Alveolar/Arterial O2 Gradient 199.8 mmHg; Base Excess ABG -8.4 mEq/l (+/-2.0); Fractional Inspired Oxygen 60 %; HCO3 ABG 16.7 mEq/l (22.0-26.0); Oxygen Content ABG 21.5 %vol (16.0-22.0); Oxygen Saturation ABG 99.2 % (95.0-100.0); PO2 ABG 190.6 mmHg (80.0-100.0); PO2 FiO2 Ratio Arterial Blood 3.18 %; Total Hemoglobin 15.5 g/dL (12.0-18.0)
[2023-11-05 16:09] LABS: Device VENTILATOR; Site Drawn RIGHT RADIAL
[2023-11-05 16:10] LABS: Arterial Blood Gas Vent Mode CMV; Arterial Blood Gas Ventilator rate 15 /MIN
[2023-11-05 16:11] LABS: Arterial Blood Gas PEEP 5 cmH2O; Arterial Blood Gas Tidal Volume 450 ml
[2023-11-05 16:17] LABS: Triglycerides 171 mg/dL (<150)
[2023-11-05] MEDS: SODIUM CHLORIDE 0.9% IV 1,000 ML 999 ML IV CONT ×2 (17:33→20:45)
--- NOTE | 2023-11-05 17:39 | PM.IMHP ---
H&P: HPI History of Present Illness Date/Time: 11/05/23 17:39 Chief Complaint: Cardiac Arrest Narrative: 63 y/o F presents here post-cardiac arrest with PMH of cervical ankylosis, depression, smoker, and HLD. HPI obtained through EMS report. Per EMS, they were initially called for shortness of breath and syncope/unresponsiveness. patient's witnessed the patient gasping for air, staring off, and then collapsing. Immediately called EMS. 5 minutes lapsed from EMS call to their arrival. When they arrived patient was slumped over in chair and not breathing. Patient moved to the floor and CPR was initiated at 12:15. No change with Narcan administration x3, epi x3, and 300 mg of amiodarone. Patient initially VFib and was shocked twice prior to arrival to the emergency department. However, arrived to the ED with Kody device in place and in PEA. Start of code time in ED: 12:43. Given bicarb and epi x3. PEA during pulse check x3 with ROSC achieved at 12:52. Patient intubated with 7.5 ETT, however unable to obtain seal despite additional mLs added to cuff and was replaced with an 8.0 ETT tube. Only recent procedure was tooth extraction and was given hydrocodone, otherwise has been well. Last seen by provider through her [facility] network in January of 2023 (neurosurgery) for follow-up visit of neck pain, shoulder pain, and headaches for which she had surgical management with an anterior cervical diskectomy with fusion of C5 and C6 in November 25, 2021. Initial VS at presentation: pulseless, no spontaneous respirations. Post ROSC: 98.7 F, HR 89, RR 15, 99% on vent, and 103/80. later had temp of 100? F and developed tachycardia ranging from 101-124. ED workup showed No leukocytosis, no anemia, sodium 132, K 3.2, creatinine 0.7, glucose 310, lactic acid 3.7, calcium 8.1, mildly bumped LFTs, troponin 0.141, and viral PCR negative. Head CT showed no acute intracranial abnormality. Chest CTA showed no central PE identified, however limited evaluation of peripheral pulmonary artery branches due to respiratory motion. Initial/unofficial EKG reading showed sinus tachycardia, right axis deviation, right bundle-branch block. Repeat EKG showed sinus tachycardia with short MA interval, ST deviation and marked T-wave abnormality consider anterolateral ischemia, awaiting formal read. Review of Systems Review of Systems: All systems reviewed & are unremarkable except as noted in HPI and below [facility] Past Medical History Medical History Acquired cervical spine ankylosis ACDF @ C5-C6 Depression Fracture of distal radius and ulna HLD (hyperlipidemia) Smoker Surgical History Surgical History History of appendectomy History of History of hernia repair History of hysterectomy History of parathyroidectomy Social History Social History Smoking packs per day: 1 Smoking cigarettes per day: 20.0 Years smoked: 40 Smoking pack-years: 40.00 Smoking status: Current some day smoker Tobacco type: cigarettes Second hand tobacco smoke exposure: No Alcohol intake: current Drinks per week: 4 Substance use: never Substance use type: does not use Living arrangements: with family Spiritual care concerns: No Meds Home Medications and Allergies Home Medications Medication Instructions Recorded Confirmed Type sertraline 100 mg tablet (Zoloft) 100 mg PO QAM 02/28/21 11/05/23 History rosuvastatin 5 mg tablet 5 mg PO DAILY 06/26/22 11/05/23 History Allergies Allergy/AdvReac Type Severity Reaction Status Date / Time No Known Allergies Allergy Unknown NONE Verified 06/26/22 10:29 Vital Signs Vital Signs - 24 hr 11/05/23 13:13 11/05/23 13:16 11/05/23 13:25 Temperature 98.7 F Pulse Rate 94 89 Respiratory Rate 15 Blood Pressure 103/80 Pulse Oximetry 99 99 Oxygen Delivery Mechan
[2023-11-05 17:48] LABS: Lactic Acid Reflex 3.7 mmol/L (0.7-2.0)
[2023-11-05] MEDS: SODIUM BICARBONATE 8.4% 50 MEQ/50 ML SYRINGE 63 MEQ IV PUSH (17:48)
[2023-11-05] MEDS: PIPERACILLN/TAZ 3.375GM/NS50ML 3.375 GM/50 ML BAG IVPB ×2 (17:56→23:24)
[2023-11-05] MEDS: SODIUM CHLORIDE 0.9% IV 1,000 ML 150 ML IV CONT (18:00)
[2023-11-05] MEDS: metroNIDAZOLE 500 MG/ISO 100ML 500 MG/100 ML BAG 100 MG IVPB (18:03)
[2023-11-05 19:15] LABS: Appearance Urine Clear (Clear); Bacteria Urine None Seen /hpf; Bilirubin Urine Negative (Negative); Blood Urine 3+ (Negative); Color Urine Yellow (Yellow); Glucose Urine UA 1+ mg/dL (Negative); Ketones Urine Negative (Negative); Leukocyte Esterase Ur Negative LEU/UL (Negative); Nitrate Urine Negative (Negative); Protein Urine 2+ mg/dL (Negative); RBC Urine 51-100 /hpf (0-2); Squamous Epithelial Cell Urine Occasional /hpf (Few); WBC Urine 0-5 /hpf
--- NOTE | 2023-11-05 19:15 | PC.NURSE ---
This patient, Elizabeth Mari, was admitted to Intensive Care Unit-3. Patient/family oriented to hospital policies and general routines including ID bracelet, bed and alarms, visiting hours, pain management, procedures, bathroom and other care routines, personal items, smoking policy, room service/diet, and visiting hours. Information on how to activate the Rapid Response Team has been discussed. Patient/Family are encouraged to report perceived risks to care and to ask questions if they do not understand what they are told or what they should do.
[2023-11-05 19:24] LABS: Add Urine Microscopic? YES
[2023-11-05 19:28] LABS: Magnesium 1.8 mg/dL (1.6-2.3); Phosphorus 2.9 mg/dL (2.5-4.5); Triglycerides 338 mg/dL (<150)
--- NOTE | 2023-11-05 19:30 | ECG_ITS ---
Measurements Intervals [place] Rate: 107 P: 65 AL: 133 QRS: 47 QRSD: 97 T: 235 QT: 404 QTc: 540 Interpretive Statements [address] T[address] DEVIATION AND MARKED T-WAVE ABNORMALITY, CONSIDER ANTEROLATERAL ISCHEMIA [-0.5+ mV T WAVE IN I/aVL/V3-V6] ST DEVIATION AND MODERATE T-WAVE ABNORMALITY, CONSIDER INFERIOR ISCHEMIA [-0.1+ mV T WAVE IN II/aVF] ABNORMAL ECG COMPARED TO ECG 11/05/2023 15:43:57 NO SIGNIFICANT CHANGES Electronically Signed On 11-06-2023 14:40:03 PRICING ANALYST by Haroldo Batres M.D.
[2023-11-05 19:38] LABS: Amphetamine Screen Urine Negative (Negative); Barbiturate Screen Urine Negative (Negative); Benzodiazepines Screen Urine Positive (Negative); Cannabinoid Screen Urine Negative (Negative); Cocaine Screen Urine Negative (Negative); Methadone Screen Urine Negative (Negative); Opiate Screen Urine Positive (Negative); Phencyclidine Screen Urine Negative (Negative)
[2023-11-05] MEDS: KCL 40 MEQ/WATER 100 ML 100 ML 25 ML IVPB (20:10)
[2023-11-05] MEDS: PANTOPRAZOLE SODIUM IV 40 MG VIAL IV PUSH (20:13)
[2023-11-05 20:15] LABS: Alveolar/Arterial O2 Gradient 111.5 mmHg; Base Excess ABG 0.8 mEq/l (+/-2.0); HCO3 ABG 26.1 mEq/l (22.0-26.0); Oxygen Content ABG 19.8 %vol (16.0-22.0); Oxygen Saturation ABG 98.4 % (95.0-100.0); PCO2 ABG 44.1 mmHg (35.0-45.0); Total Hemoglobin 14.4 g/dL (12.0-18.0)
[2023-11-05 20:16] LABS: Device VENTILATOR; Fractional Inspired Oxygen 40 %; Methemoglobin ABG 0.5 %THb (0-1.5); Modified Allen's Test Pass; Oxyhemoglobin 97.2 % THb (90.0-100.0); PO2 FiO2 Ratio Arterial Blood 3.08 %; Reduced Hemoglobin 2.3 %THb (0-5.0); Site Drawn RIGHT RADIAL
[2023-11-05 20:17] LABS: Arterial Blood Gas PEEP 5 cmH2O; Arterial Blood Gas Tidal Volume 400 ml; Arterial Blood Gas Vent Mode CMV; Arterial Blood Gas Ventilator rate 15 /MIN
[2023-11-05 20:35] LABS: Reflex Lactic Acid Yes or No Add Lactic
[2023-11-05 20:40] LABS: NT Pro B Type Natriuretic Pept 3760 pg/mL (19.9-100)
[2023-11-05 20:40] LABS: Glucose Point of Care 128 mg/dl (65-105)
[2023-11-05 20:45] LABS: Hematocrit 42.6 % (37.0-47.0); Hemoglobin 13.9 g/dL (12.0-15.0); Mean Corpuscular HGB Conc 32.6 g/dl (32-36); Mean Corpuscular Hemoglobin 29.8 pg (26-34); Mean Corpuscular Volume 91.2 fl (80-100); Mean Platelet Volume 9.3 fl (7.4-10.4); Platelet Count Result 192 k/mm3 (150-375); Red Blood Count 4.67 M/mm3 (4.2-5.4); Red Cell Distribution Width 13.3 % (11.5-14.5); White Blood Count 16.5 K/mm3 (4.5-10.0)
[2023-11-05 20:56] LABS: INR 1.2; Lactic Acid Reflex 2.3 mmol/L (0.7-2.0); Partial Thromboplastin Time 25.7 SECONDS (22.3-36.8); Prothrombin Time 16.3 Seconds (11.1-14.7)
[2023-11-05 21:03] LABS: Hemoglobin A1C 5.7 % (<5.7)
[2023-11-05 21:05] LABS: Alanine Aminotransferase 264 U/L (6-35); Albumin Level 3.7 g/dL (3.5-5.1); Alkaline Phosphatase 111 U/L (38-126); Anion Gap 4 mmol/L (8-16); Aspartate Amino Transferase 460 U/L (14-36); Bilirubin,Total 0.8 mg/dL (0.2-1.3); Blood Urea Nitrogen 19 mg/dL (7-17); Calcium 7.6 mg/dL (8.4-10.2); Carbon Dioxide 31 mmol/L (22-30); Chloride 105 mmol/L (98-107); Creatine Kinase 1066 U/L (30-135); Estimated CRCL calculation 54 ml/min; Estimated Glomerular Filt Rate > 60; Glucose 149 mg/dL (65-110); Potassium 2.7 mmol/L (3.4-5.0); Sodium 140 mmol/L (137-145)
[2023-11-05] MEDS: MIDAZOLAM HCL (*CRX) 2 MG/2 ML VIAL IV PUSH (21:15)
[2023-11-05] MEDS: MINERAL OIL/WHITE PETROLATUM OINTMENT 1 APPLIC EACH EYE (21:16)
[2023-11-05] MEDS: VANCOMYCIN 1,500 MG/NS 500 ML 1,500 MG/500 ML BAG 250 MG IVPB (21:17)
[2023-11-05] MEDS: MIDAZOLAM 100MG/NS 100ML(*CRX) 100 MG/100 ML BAG IV CONT (21:35)
[2023-11-05 21:39] LABS: MRSA (PCR) NOT DETECTED (NOT DETECTE)
[2023-11-05] MEDS: ASPIRIN 81 MG CHEWABLE TABLET 324 MG FEED TUBE (22:04)
[2023-11-05] MEDS: POTASSIUM CHLORIDE 20 MEQ PACKET (FOR LIQUID) 40 MEQ FEED TUBE (22:04)
[2023-11-05 22:16] LABS: Glucose Point of Care 153 mg/dl (65-105)
[2023-11-05] MEDS: CISATRACURIUM BESYLATE 200 MG in DEXTROSE 5% 80 ML 5.67 ML IV CONT (22:17)
[2023-11-05 23:10] LABS: pH ABG 7.197 (7.350-7.450)
[2023-11-05 23:11] LABS: Base Excess ABG -4.9 mEq/l (+/-2.0); HCO3 ABG 24.5 mEq/l (22.0-26.0); Oxygen Saturation ABG 97.1 % (95.0-100.0); PCO2 ABG 64.5 mmHg (35.0-45.0); PO2 ABG 114.8 mmHg (80.0-100.0); Total Hemoglobin 15.1 g/dL (12.0-18.0)
[2023-11-05 23:12] LABS: Alveolar/Arterial O2 Gradient 96.2 mmHg; Fractional Inspired Oxygen 40 %; Methemoglobin ABG 0.7 %THb (0-1.5); Oxygen Content ABG 20.6 %vol (16.0-22.0); Oxyhemoglobin 96.5 % THb (90.0-100.0); PO2 FiO2 Ratio Arterial Blood 2.87 %; Reduced Hemoglobin 2.8 %THb (0-5.0); Site Drawn RIGHT RADIAL
[2023-11-05 23:13] LABS: Arterial Blood Gas PEEP 5 cmH2O; Arterial Blood Gas Tidal Volume 400 ml; Arterial Blood Gas Vent Mode CMV; Arterial Blood Gas Ventilator rate 15 /MIN; Device VENTILATOR; Modified Allen's Test Pass
[2023-11-05] MEDS: PROPOFOL IV EMULSION 100 ML 13.23 MG IV CONT (23:18)
[2023-11-06] VITALS (57 sets, daily range): BP systolic 82–158; BP diastolic 61–96; PULSE 63–99; RESP 15–24; TEMP 31.6–34.4; O2SAT 96–100
--- NOTE | 2023-11-06 | ECHO_ITS ---
Patient Info Name: Elizabeth Mari Age: 63 years : 1960 Gender: Female Ht: 64 in Wt: 138 lbs BSA: 1.69 m2 HR: 78 bpm BP: 92 / 70 mmHg Heart Rhythm: Sinus Rhythm Technical Quality: Fair Exam Date: 11/06/2023 9:27 AM Exam Location: Echo Lab Exam Room: ICU3 Patient Status: Inpatient Admit Date: 11/05/2023 Staff Ordering Physician: Ella Singh APRN Truck Greaser: Lakia Hobbs RDCS Attending Provider: Liz Richards MD Referring Physician: Samantha TINAJERO; Exam Type: CA echo dop color flow w con Study Info Indications I46.9 - Cardiac arrest, cause unspecified Complete two-dimensional, color flow and Doppler transthoracic echocardiogram is performed with contrast to opacify the left ventricle and to improve the deliniation of the left ventricle endocardial borders. Contrast/Agitated Saline Contrast/Ag. Saline: Definity Amount: 2.00 ml Administered By: Lakia Hobbs [facility] Existing IV Access: Yes IV Access Condition: patent with no signs of infiltration Summary 1. Left ventricular systolic function is severely reduced, estimated at 25-30% with relative sparing of the apex with severe hypokinesis to akinesis of the mid to apical segments. 2. Left ventricular chamber dimension is mildly enlarged. 3. There is no increased left ventricular wall thickness. 4. The left ventricular diastolic function is grade I diastolic dysfunction. 5. There is trace tricuspid valve regurgitation. 6. Mild pulmonary hypertension, estimated pulmonary arterial systolic pressure is 40 mmHg. 7. There is mild mitral valve regurgitation. Left Ventricle Left ventricular chamber dimension is mildly enlarged. Left ventricular systolic function is severely reduced, estimated at 25-30% with relative sparing of the apex with severe hypokinesis to akinesis of the mid to apical segments. There is no increased left ventricular wall thickness. The left ventricular diastolic function is grade I diastolic dysfunction. There is no thrombus visualized in the left ventricle. Right Ventricle Right ventricular chamber dimension is normal. Right ventricular systolic function is normal. Left Atria Left atrial chamber dimension is normal. Right Atria Right atrial chamber dimension is normal. Aortic Valve The aortic valve is not well visualized. There is no aortic valve stenosis. There is no aortic valve regurgitation. Pulmonic Valve The pulmonic valve is not well visualized. Mitral Valve The mitral valve has normal leaflets. There is mild mitral valve regurgitation. Tricuspid Valve The tricuspid valve leaflets are normal. There is trace tricuspid valve regurgitation. Mild pulmonary hypertension, estimated pulmonary arterial systolic pressure is 40 mmHg. Pericardium/Pleural The pericardium appears normal. There is no pericardial effusion. Inferior Vena Cava Dilated inferior vena cava with <50% collapse upon inspiration consistent with significantly elevated right atrial pressure, 15 mmHg. Aorta The aortic root size at the sinus of Valsalva is normal. There is mild aortic atherosclerosis. Left Ventricular Outflow Tract Name Value Normal LVOT 2D LVOT Diameter 2.02 cm LVOT Doppler
[2023-11-06 00:14] LABS: Glucose Point of Care 176 mg/dl (65-105)
[2023-11-06] MEDS: KCL 40 MEQ/WATER 100 ML 100 ML 25 ML IVPB (00:26)
[2023-11-06 01:13] LABS: Glucose Point of Care 185 mg/dl (65-105)
[2023-11-06 02:16] LABS: Glucose Point of Care 180 mg/dl (65-105)
[2023-11-06 03:08] LABS: Glucose Point of Care 161 mg/dl (65-105)
[2023-11-06 03:58] LABS: Glucose Point of Care 130 mg/dl (65-105)
[2023-11-06 05:04] LABS: Base Excess ABG -2.2 mEq/l (+/-2.0); PCO2 ABG 36.1 mmHg (35.0-45.0); PO2 ABG 173.3 mmHg (80.0-100.0); pH ABG 7.403 (7.350-7.450)
[2023-11-06 05:05] LABS: Alveolar/Arterial O2 Gradient 70.4 mmHg; Carboxyhemoglobin 0.3 % THb (0-2.0); Fractional Inspired Oxygen 40 %; Methemoglobin ABG 0.4 %THb (0-1.5); Oxygen Content ABG 20.4 %vol (16.0-22.0); Oxygen Saturation ABG 99.2 % (95.0-100.0); Oxyhemoglobin 97.8 % THb (90.0-100.0); PO2 FiO2 Ratio Arterial Blood 4.33 %; Reduced Hemoglobin 1.5 %THb (0-5.0); Site Drawn RIGHT RADIAL; Total Hemoglobin 14.6 g/dL (12.0-18.0)
[2023-11-06 05:06] LABS: Arterial Blood Gas PEEP 5 cmH2O; Arterial Blood Gas Tidal Volume 400 ml; Arterial Blood Gas Vent Mode CMV; Arterial Blood Gas Ventilator rate 24 /MIN; Device VENTILATOR; Modified Allen's Test Pass
[2023-11-06] MEDS: SODIUM CHLORIDE 0.9% IV 1,000 ML 100 ML IV CONT ×2 (05:16→17:22)
[2023-11-06] MEDS: PIPERACILLN/TAZ 3.375GM/NS50ML 3.375 GM/50 ML BAG IVPB ×4 (05:35→23:59)
[2023-11-06 05:43] LABS: Glucose Point of Care 111 mg/dl (65-105)
[2023-11-06 06:14] LABS: Hemoglobin 13.8 g/dL (12.0-15.0); Mean Corpuscular HGB Conc 32.1 g/dl (32-36); Mean Corpuscular Hemoglobin 29.4 pg (26-34); Mean Corpuscular Volume 91.7 fl (80-100); Mean Platelet Volume 9.6 fl (7.4-10.4); Platelet Count Result 188 k/mm3 (150-375); Red Blood Count 4.69 M/mm3 (4.2-5.4); Red Cell Distribution Width 13.3 % (11.5-14.5); White Blood Count 14.3 K/mm3 (4.5-10.0)
[2023-11-06 06:18] LABS: INR 1.2; Prothrombin Time 15.7 Seconds (11.1-14.7)
[2023-11-06 06:19] LABS: Partial Thromboplastin Time 29.5 SECONDS (22.3-36.8)
[2023-11-06 06:27] LABS: Lactic Acid Reflex 1.5 mmol/L (0.7-2.0)
[2023-11-06 06:36] LABS: Alanine Aminotransferase 239 U/L (6-35); Albumin Level 3.6 g/dL (3.5-5.1); Alkaline Phosphatase 105 U/L (38-126); Anion Gap 5 mmol/L (8-16); Aspartate Amino Transferase 345 U/L (14-36); Bilirubin,Total 0.6 mg/dL (0.2-1.3); Blood Urea Nitrogen 13 mg/dL (7-17); Calcium 6.8 mg/dL (8.4-10.2); Carbon Dioxide 28 mmol/L (22-30); Chloride 106 mmol/L (98-107); Estimated CRCL calculation 70 ml/min; Estimated Glomerular Filt Rate > 60; Glucose 99 mg/dL (65-110); Potassium 3.5 mmol/L (3.4-5.0); Sodium 139 mmol/L (137-145)
[2023-11-06] MEDS: PROPOFOL IV EMULSION 100 ML 13.23 MG IV CONT (07:12)
[2023-11-06 07:16] LABS: Creatine Kinase 1509 U/L (30-135)
[2023-11-06 07:23] LABS: Glucose Point of Care 107 mg/dl (65-105)
--- NOTE | 2023-11-06 08:12 | WPDCNINT ---
Assessment and Plan Assessment and plan (1) Sepsis: Code(s): A41.9 - Sepsis, unspecified organism Status: Acute Assessment and Plan: Although patient met criteria for sepsis on presentation there is no obvious source of infection apart from the tooth infection the patient had prior to presentation. UA does not look infected and CT scan was negative for any evidence of pneumonia. Nasal MRSA screen is negative PCR for RSV COVID and influenza is negative Blood cultures have been sent and are pending I will continue empiric Zosyn but discontinue vancomycin at this time Check procalcitonin level (2) Cardiac arrest with ventricular fibrillation: Code(s): I46.9 - Cardiac arrest, cause unspecified; I49.01 - Ventricular fibrillation Status: Acute Assessment and Plan: VFib cardiac arrest. Unknown etiology at this time CTA negative for PE Echo ordered and pending EKG showed ST and T-wave abnormality but no ST elevation. Her troponin is elevated but that could be just from the cardiac arrest and CPR Continue aspirin. Hold beta-kesha due to soft blood pressure. Hold statin due to elevated liver enzymes EKG reviewed this morning and shows prolonged QTC. I will slowly wean off propofol and switch to fentanyl infusion Discussed with Cardiology. Will start heparin infusion and obtain echocardiogram this morning. (3) Hyperglycemia: Code(s): R73.9 - Hyperglycemia, unspecified Status: Acute Assessment and Plan: Sliding scale insulin (4) Acute hypokalemia: Code(s): E87.6 - Hypokalemia Status: Acute Assessment and Plan: Potassium was replaced and now at acceptable number considering patient is could on hypothermia. Monitor (5) Acute respiratory failure: Code(s): J96.00 - Acute respiratory failure, unspecified whether with hypoxia or hypercapnia Status: Acute Assessment and Plan: Acute Respiratory failure secondary to cardiac arrest CTA negative for PE Continue full mechanical ventilation support to prevent hypoxemia/hypercarbia and end organ damage. ABG and PCXR reviewed Decrease rate to 22 and FiO2 30% Low tidal volume ventilation strategy to prevent volutrauma (6) Diarrhea: Code(s): R19.7 - Diarrhea, unspecified Status: Acute Assessment and Plan: Check C diff Empiric vancomycin oral (7) Elevated troponin: Code(s): R79.89 - Other specified abnormal findings of blood chemistry Status: Acute Assessment and Plan: See above (8) Elevated liver enzymes: Code(s): R74.8 - Abnormal levels of other serum enzymes Status: Acute Assessment and Plan: Likely shock liver and rhabdomyolysis Monitor levels Normal bilirubin and alkaline phosphatase (9) Rhabdomyolysis: Code(s): M62.82 - Rhabdomyolysis Status: Acute Assessment and Plan: Continue IV fluids and monitor CK levels (10) Anoxic brain injury: Code(s): G93.1 - Anoxic brain damage, not elsewhere classified Status: Acute Assessment and Plan: Currently started on hypothermia protocol and will be reassessed once complete and sedation wears off. Head CT on presentation was negative for any acute change Plan DVT prophylaxis -start Lovenox Stress ulcer prophylaxis -Protonix Nutrition - npo Code Status - Full Code Spoke to and updated son at bedside. I answered all his questions Total Critical Care Time - 45 minutes Due to a high probability of clinically significant, life threatening deterioration, the patient required my highest level of preparedness to intervene emergently and I personally spent this critical care time directly and personally managing the patient. This critical care time included obtaining a history; examining the patient; pulse oximetry; ordering and review of studies; arranging urgent treatment with development of a management plan; evaluation of patient's response to treatment;
[2023-11-06] MEDS: FENTANYL 2,500MCG/NS250ML(*CRX 2,500 MCG/250 ML BAG 50 MCG IV CONT (08:43)
[2023-11-06] MEDS: NOREPINEPHRINE 8 MG/D5W 250 ML 8 MG/250 ML BAG 9.38 MG IV CONT ×2 (08:46→08:47)
[2023-11-06 08:47] LABS: Glucose Point of Care 104 mg/dl (65-105)
--- NOTE | 2023-11-06 09:11 | PM.CNCAR ---
Assessment and Plan Assessment and plan (1) Cardiac arrest with ventricular fibrillation: Code(s): I46.9 - Cardiac arrest, cause unspecified; I49.01 - Ventricular fibrillation Status: Acute Assessment and Plan: Patient presents with sudden unresponsiveness witnessed by her at home related to ventricular fibrillation status post defibrillation followed by PEA arrest successfully resuscitated. Continue cooling protocol. ECG very abnormal diffuse deep T-wave inversions concerning for ischemia without clear ST elevations. These abnormalities have progressed from admission. Her son bedside echo revealed dilated LV severely depressed function EF 25-30% with relative sparing of the bases with mid apical regions severely hypokinetic to akinetic. Primary concern for underlying CAD acute coronary syndrome precipitating a VF arrest, however, discussed with at bedside potential for takotsubo cardiomyopathy. -discussed with my interventional partner Dr. Friedman clinical status. After discussion and review of ECGs agrees take patient to cardiac catheterization lab delineation of coronary anatomy. Discussed with patient's at bedside arise understanding and agreed with care. Risks, benefits alternatives discussed. -aspirin 81 mg daily. Statin on hold secondary to significant LFT abnormalities. Unable to utilize beta-kesha or other sporting medication due to hypotension/shock. Explained patient's patient at high risk for complications. Bedside cursory review of echo revealed EF estimated proximally 25-30% with sparing of the bases with severe hypokinesis to akinesis of the mid to apical segments throughout. Primary concern secondary to severe underlying obstructive CAD, however, alternative such as takotsubo cardiomyopathy remain a consideration. Per Dr. Friedman hold off on initiation of systemic anticoagulation as patient will be going to cardiac catheterization lab. Further recommendations to follow thereafter. Patient remains critically ill but is maintaining sinus rhythm on telemetry without recurrent VT or VF. She received 300 mg IV amiodarone in the field but no subsequent antiarrhythmic therapy. Monitor replete electrolytes potassium around 4.0, magnesium around 2.0. I spent 84 minutes in the care of this patient including but not limited to bedside discussions with family, patient examination, discussions with colleagues, chart review, medical decision making, and documentation. (2) Non-STEMI (non-ST elevated myocardial infarction): Code(s): I21.4 - Non-ST elevation (NSTEMI) myocardial infarction Status: Acute Assessment and Plan: Troponin elevation peaking thus far 1.6, repeat troponin for trend. Discussed primary concern with regards underlying CAD and acute myocardial infarction is probable contribution, however, alternative explanation possible toxic supine cardiomyopathy discussed as well. Appropriate medical therapy as tolerated. Aspirin 81 mg. Depending on coronary angiography and intervention dual antiplatelet therapy anticipated if intervention performed. Systemic anticoagulation based upon results of coronary angiography per Interventional Cardiology. Statin therapy on hold secondary to significant abnormalities in liver function test. No pulmonary embolism on CT angiogram of the chest. (3) Shock: Code(s): R57.9 - Shock, unspecified Status: Acute Assessment and Plan: Patient has just recently been started on a Levophed for supportive hypotension. Patient with significant elevation in LFTs likely secondary to cardiac arrest. (4) Cardiomyopathy: Code(s): I42.9 - Cardiomyopathy, unspecified Status: Acute Assessment and Plan: New diagnosis, LV dilated suggestive more of a chronic process it with EF 25-30% with wall motion abnormalities as discussed above. Etiology unclear primary concern underlying CAD. Aggressive medical management as appropriat
[2023-11-06] MEDS: PANTOPRAZOLE SODIUM IV 40 MG VIAL IV PUSH (09:15)
[2023-11-06] MEDS: MINERAL OIL/WHITE PETROLATUM OINTMENT 1 APPLIC EACH EYE ×3 (09:16→19:36)
[2023-11-06] MEDS: ASPIRIN 325 MG TABLET FEED TUBE (09:17)
[2023-11-06] MEDS: PERFLUTREN LIPID MICROSPHERES 1.5 ML VIAL DILUTED TO 10 ML TOTAL VOLUME IV PUSH (10:00)
--- NOTE | 2023-11-06 10:12 | IVDEFINITY ---
Prior to administration of IV Definity the patient was educated on the risks and benefits of the imaging enhancing agent including potential adverse side effects. The patient verbalized understanding. Allergies were verified. No exclusion criteria were identified and at least one of the following inclusion criteria were met: 1) physician request, 2) patient technically difficult to image (per the [place] [employer] guidelines of two or more segments not discernable within the apical view), or 3) questionable left ventricular function. ?
[2023-11-06] MEDS: LACTATED RINGERS 1,000 ML 999 ML IV CONT (10:24)
[2023-11-06 10:27] LABS: Basophils Percent Auto 0.2 % (0.2-1.2); Eosinophils Percent Auto 0.2 % (0-4.4); Hemoglobin 12.5 g/dL (12.0-15.0); Immature Granulocyte Absolute 0.07 K/mm3 (0.00-0.031); Immature Granulocyte Percent A 0.5 % (0-0.5); Lymphocytes Percent Auto 8.6 % (18.3-44.2); Mean Corpuscular HGB Conc 32.9 g/dl (32-36); Mean Corpuscular Hemoglobin 29.7 pg (26-34); Mean Corpuscular Volume 90.3 fl (80-100); Mean Platelet Volume 9.4 fl (7.4-10.4); Monocytes Absolute Auto 0.6 K/mm3 (0.1-0.6); Neutrophils Percent Auto 85.5 % (45.5-73.1); Platelet Count Result 192 k/mm3 (150-375); Red Blood Count 4.21 M/mm3 (4.2-5.4); Red Cell Distribution Width 13.4 % (11.5-14.5); White Blood Count 12.9 K/mm3 (4.5-10.0)
[2023-11-06 10:38] LABS: Alanine Aminotransferase 191 U/L (6-35); Albumin Level 2.8 g/dL (3.5-5.1); Alkaline Phosphatase 80 U/L (38-126); Anion Gap 9 mmol/L (8-16); Aspartate Amino Transferase 212 U/L (14-36); Bilirubin,Total 0.7 mg/dL (0.2-1.3); Blood Urea Nitrogen 12 mg/dL (7-17); Calcium 6.4 mg/dL (8.4-10.2); Carbon Dioxide 19 mmol/L (22-30); Chloride 108 mmol/L (98-107); Estimated CRCL calculation 83 ml/min; Estimated Glomerular Filt Rate > 60; Glucose 128 mg/dL (65-110); INR 1.3; Potassium 3.4 mmol/L (3.4-5.0); Prothrombin Time 16.5 Seconds (11.1-14.7); Sodium 136 mmol/L (137-145)
[2023-11-06 10:39] LABS: Partial Thromboplastin Time 29.5 SECONDS (22.3-36.8)
--- NOTE | 2023-11-06 10:57 | PC.NURSE ---
Patient going to pie bakery laborer at this time 1058. Dr. Feliz notified and aware that patient will be off hypothermia protocol while up in pie bakery laborer and to re cool patient once she is back in ICU-3.
[2023-11-06 11:02] LABS: Troponin I 0.404 ng/mL (0.000-0.034)
--- NOTE | 2023-11-06 11:12 | WPDHPUPDATE1 ---
History and Physical Update Update Date/Time: 11/06/23 11:12 History and Physical has been reviewed, including an updated exam of the patient. There are NO changes in the patient's condition. Risks, benefits, and alternatives have been discussed and questions answered. Patient agrees to proceed with procedure.
--- NOTE | 2023-11-06 11:13 | WPDHPUPDATE1 ---
History and Physical Update Update Date/Time: 11/06/23 11:13 History and Physical has been reviewed, including an updated exam of the patient. There are NO changes in the patient's condition. Risks, benefits, and alternatives have been discussed and questions answered. Patient agrees to proceed with procedure.
--- NOTE | 2023-11-06 11:13 | P.PCNCC_ITS ---
Cardiac Cath Procedure Note Date of procedure:: 11/06/23 Performing physician:: Ubaldo Friedman MD Date of service 11/06/2023 Indication:: VFib arrest, abnormal ischemic changes on EKG Brief clinical history:: Patient is a 63-year-old female with past medical history significant tobacco abuse, hyperlipidemia otherwise reasonably healthy who is brought in by EMS after sudden episode of nonresponsiveness and reported VF arrest.? This is witnessed by her who was sitting next to her who summoned EMS immediately with reported arrival and initiation of CPR and less than 5 minutes. her EKG shows severe ischemic changes with very deep T inversions. Troponin peaked at 1.6. Requiring low-dose Levophed. Procedure Procedure performed:: 1-Selective left and right coronary angiogram. 2-Left heart catheterization with measurement of LVEDP and measurement of gradient across aortic valve. 3- LV angiogram. 4-Right common femoral arterial angiogram. 5-Deployment of 6 [place] Angio-Seal. Sedation/Medication given:: Moderate sedation. Access site:: Right common femoral artery. Estimated blood loss:: 10cc Procedure note:: After informed consent patient was brought in to culture media laboratory assistant with the was draped and prepped in usual manner. Theright groin was infiltrated using 1% lidocaine. Five [place] sheath was obtained using micropuncture needle and the modified Seldinger technique. Selective left coronary angiogram was done using JL4 catheter with the tip of the catheter placed in the left main coronary artery. Selective right coronary angiogram was done using JR4 catheter with the tip of the catheter placed to the right coronary artery. After that 5 [place] pigtail catheter was advanced across the aortic valve into the left ventricle with measurement of LVEDP and measurement of gradient across aortic valve. Right common femoral arterial angiogram was done. Findings:: 1- left coronary artery is a large artery that divides into large LAD, large circumflex artery. Left main Has minimal irregularities 2- left anterior descending artery is a large artery that runs and wraps around the apex. has diffuse minimal irregularities. The mid segment medium size to large diagonal branch that has ostial 30% and mid 40%. 3- leftcircumflex artery is a large artery Has minimal irregularities. In the mid segment large OM1 free of disease. 4- right coronary artery is Large artery and dominant has minimal irregularities. It has minimal calcification as well. 5- LVEDP was 10 mm Hgand no gradient across aortic valve. 6- LV angiogram shows dilated ventricle with estimated ejection fraction 20%. Global hypokinesis. 6- opening arterial pressure was 157/86 and closing pressure was 131/94 7- right femoral artery angiogram shows no significant disease in the right common femoral artery. Assessment and Plan Assessment and plan (1) Non-STEMI (non-ST elevated myocardial infarction): Code(s): I21.4 - Non-ST elevation (NSTEMI) myocardial infarction Status: Acute Assessment and Plan: No evidence of obstructive CAD. - ejection fraction is severely reduced with global hypokinesis. - continue low-dose Levophed. - optimize CHF management.
--- NOTE | 2023-11-06 11:15 | ECG_ITS ---
Measurements Intervals [place] Rate: 69 P: 77 ME: 140 QRS: 68 QRSD: 115 T: 248 QT: 513 QTc: 552 Interpretive Statements SINUS RHYTHM MODERATE INTRAVENTRICULAR CONDUCTION DELAY [110+ ms QRS DURATION] ST DEVIATION AND MARKED T-WAVE ABNORMALITY, CONSIDER ANTEROLATERAL ISCHEMIA [-0.5+ mV T WAVE IN I/aVL/V3-V6] ST DEVIATION AND MODERATE T-WAVE ABNORMALITY, CONSIDER INFERIOR ISCHEMIA [-0.1+ mV T WAVE IN II/aVF] QT PROLONGATION ABNORMAL ECG COMPARED TO ECG 11/05/2023 22:55:56 HEART RATE HAS DECREASED INTRAVENTRICULAR CONDUCTION DELAY NOW PRESENT Electronically Signed On 11-06-2023 14:44:17 FRONT END DEVELOPER DESIGNER by Haroldo Batres M.D.
[2023-11-06 11:44] LABS: Procalcitonin 29.5 ng/mL
[2023-11-06 13:10] LABS: Glucose Point of Care 115 mg/dl (65-105)
[2023-11-06] MEDS: ENOXAPARIN 40 MG/0.4 ML SYRINGE SUB-Q (13:20)
[2023-11-06] MEDS: POTASSIUM BICARBONATE 25 MEQ TABEF FEED TUBE (13:20)
[2023-11-06 15:00] LABS: Glucose Point of Care 116 mg/dl (65-105)
[2023-11-06 15:42] LABS: Toxigenic C. Diff NEGATIVE (NEGATIVE)
[2023-11-06 17:13] LABS: Glucose Point of Care 100 mg/dl (65-105)
[2023-11-06] MEDS: MIDAZOLAM 100MG/NS 100ML(*CRX) 100 MG/100 ML BAG IV CONT (19:17)
[2023-11-06] MEDS: CENTRAL LINE FLUSH 10 ML IV PUSH (19:36)
[2023-11-06 19:40] LABS: Glucose Point of Care 97 mg/dl (65-105)
[2023-11-06 20:58] LABS: Glucose Point of Care 111 mg/dl (65-105)
[2023-11-06 22:01] LABS: Glucose Point of Care 101 mg/dl (65-105)
[2023-11-06 23:06] LABS: Glucose Point of Care 91 mg/dl (65-105)
[2023-11-07] VITALS (52 sets, daily range): BP systolic 80–132; BP diastolic 56–80; PULSE 66–140; RESP 12–23; TEMP 32.5–38.6; O2SAT 91–100
[2023-11-07 00:25] LABS: Glucose Point of Care 87 mg/dl (65-105)
[2023-11-07 02:15] LABS: Glucose Point of Care 105 mg/dl (65-105)
[2023-11-07] MEDS: CISATRACURIUM BESYLATE 200 MG in DEXTROSE 5% 80 ML IV CONT (03:00)
--- NOTE | 2023-11-07 03:14 | PC.NURSE ---
A new bag of Nimbex was hung on day shift and not scanned into the MAR. Bag scanned and amount infused updated on NOV.
[2023-11-07 03:20] LABS: Glucose Point of Care 86 mg/dl (65-105)
[2023-11-07] MEDS: SODIUM CHLORIDE 0.9% IV 1,000 ML 100 ML IV CONT (04:24)
[2023-11-07 04:30] LABS: Glucose Point of Care 83 mg/dl (65-105)
[2023-11-07 04:44] LABS: Lactic Acid Reflex 0.8 mmol/L (0.7-2.0)
[2023-11-07 04:45] LABS: Alanine Aminotransferase 252 U/L (6-35); Albumin Level 2.8 g/dL (3.5-5.1); Alkaline Phosphatase 77 U/L (38-126); Anion Gap 7 mmol/L (8-16); Aspartate Amino Transferase 206 U/L (14-36); Bilirubin,Total 0.5 mg/dL (0.2-1.3); Blood Urea Nitrogen 10 mg/dL (7-17); Calcium 6.3 mg/dL (8.4-10.2); Carbon Dioxide 20 mmol/L (22-30); Chloride 111 mmol/L (98-107); Estimated CRCL calculation 70 ml/min; Estimated Glomerular Filt Rate > 60; Glucose 98 mg/dL (65-110); Magnesium 1.5 mg/dL (1.6-2.3); Sodium 138 mmol/L (137-145)
[2023-11-07 05:08] LABS: Alveolar/Arterial O2 Gradient 59.8 mmHg; Base Excess ABG -6.7 mEq/l (+/-2.0); Carboxyhemoglobin 0.3 % THb (0-2.0); Fractional Inspired Oxygen 25 %; HCO3 ABG 19.3 mEq/l (22.0-26.0); Methemoglobin ABG 0.4 %THb (0-1.5); Oxygen Content ABG 17.2 %vol (16.0-22.0); Oxygen Saturation ABG 92.7 % (95.0-100.0); Oxyhemoglobin 92.1 % THb (90.0-100.0); PCO2 ABG 40.1 mmHg (35.0-45.0); PO2 ABG 70.8 mmHg (80.0-100.0); PO2 FiO2 Ratio Arterial Blood 2.83 %; Reduced Hemoglobin 7.2 %THb (0-5.0); Total Hemoglobin 13.3 g/dL (12.0-18.0)
[2023-11-07 05:10] LABS: Arterial Blood Gas PEEP 5 cmH2O; Arterial Blood Gas Tidal Volume 400 ml; Arterial Blood Gas Vent Mode CMV; Arterial Blood Gas Ventilator rate 22 /MIN; Device VENTILATOR; Modified Allen's Test Unable to perform; Site Drawn RIGHT RADIAL
[2023-11-07 05:39] LABS: Creatine Kinase 827 U/L (30-135)
[2023-11-07] MEDS: PIPERACILLN/TAZ 3.375GM/NS50ML 3.375 GM/50 ML BAG IVPB ×3 (06:03→17:07)
[2023-11-07 06:34] LABS: Hematocrit 38.7 % (37.0-47.0); Hemoglobin 12.6 g/dL (12.0-15.0); Mean Corpuscular HGB Conc 32.6 g/dl (32-36); Mean Corpuscular Hemoglobin 29.9 pg (26-34); Mean Corpuscular Volume 91.7 fl (80-100); Mean Platelet Volume 9.5 fl (7.4-10.4); Platelet Count Result 179 k/mm3 (150-375); Red Blood Count 4.22 M/mm3 (4.2-5.4); White Blood Count 13.1 K/mm3 (4.5-10.0)
[2023-11-07] MEDS: CENTRAL LINE FLUSH 10 ML IV PUSH ×3 (06:41→21:00)
--- NOTE | 2023-11-07 07:49 | WPDINTPN ---
Progress Note: A&P Assessment and Plan (1) Sepsis: Code(s): A41.9 - Sepsis, unspecified organism Status: Acute Assessment and Plan: Although patient met criteria for sepsis on presentation there is no obvious source of infection apart from the tooth infection the patient had prior to presentation. UA does not look infected and CT scan was negative for any evidence of pneumonia. Nasal MRSA screen is negative PCR for RSV COVID and influenza is negative Blood cultures have been sent and are pending Vancomycin discontinued procalcitonin level higher 29.5 Continue Zosyn (2) Cardiac arrest with ventricular fibrillation: Code(s): I46.9 - Cardiac arrest, cause unspecified; I49.01 - Ventricular fibrillation Status: Acute Assessment and Plan: VFib cardiac arrest. Patient appears to have non ischemic cardiomyopathy CTA negative for PE EKG showed ST and T-wave abnormality but no ST elevation. Her troponin was elevated but that could be just from the cardiac arrest and CPR 11/06 Echo Summary ? 1. Left ventricular systolic function is severely reduced, estimated at 25-30% with relative sparing of the apex with severe hypokinesis to akinesis of the mid to apical segments. ? 2. Left ventricular chamber dimension is mildly enlarged. ? 3. There is no increased left ventricular wall thickness. ? 4. The left ventricular diastolic function is grade I diastolic dysfunction. ? 5. There is trace tricuspid valve regurgitation. ? 6. Mild pulmonary hypertension, estimated pulmonary arterial systolic pressure is 40 mmHg. ? 7. There is mild mitral valve regurgitation. 11/06 cardiac catheterization ? No evidence of obstructive CAD. - ejection fraction is severely reduced with global hypokinesis. Continue aspirin. Currently patient is on Levophed. Once she is weaned off patient will be started on low-dose beta-kesha and MOISÉS-inhibitor. Hold statin due to elevated liver enzymes QTC has normalized since psis propofol was discontinued Cardiology is following and further recommendations as per Cardiology Cautious IV fluids (3) Hyperglycemia: Code(s): R73.9 - Hyperglycemia, unspecified Status: Acute Assessment and Plan: Sliding scale insulin (4) Acute hypokalemia: Code(s): E87.6 - Hypokalemia Status: Acute Assessment and Plan: Potassium replacement ordered (5) Acute respiratory failure: Code(s): J96.00 - Acute respiratory failure, unspecified whether with hypoxia or hypercapnia Status: Acute Assessment and Plan: Acute Respiratory failure secondary to cardiac arrest CTA negative for PE ABG and PCXR reviewed Decrease rate to 22 and FiO2 25 % Low tidal volume ventilation strategy to prevent volutrauma Will perform sedation holiday and weaning trial (6) Diarrhea: Code(s): R19.7 - Diarrhea, unspecified Status: Acute Assessment and Plan: Diet improved c diff negative Discontinue vancomycin oral (7) Elevated troponin: Code(s): R79.89 - Other specified abnormal findings of blood chemistry Status: Acute Assessment and Plan: See above (8) Elevated liver enzymes: Code(s): R74.8 - Abnormal levels of other serum enzymes Status: Acute Assessment and Plan: Likely shock liver and rhabdomyolysis Monitor levels Normal bilirubin and alkaline phosphatase (9) Rhabdomyolysis: Code(s): M62.82 - Rhabdomyolysis Status: Acute Assessment and Plan: Continue IV fluids and monitor CK levels which is improving Switch fluids to LR (10) Anoxic brain injury: Code(s): G93.1 - Anoxic brain damage, not elsewhere classified Status: Acute Assessment and Plan: Patient was started on hypothermia protocol and now off Nimbex and rewarming She is following commands with all [address] on presentation was negative for any acute change (11) Cardiomyopathy: Code(s): I
[2023-11-07 07:51] LABS: Phosphorus 2.6 mg/dL (2.5-4.5)
[2023-11-07 07:57] LABS: Glucose Point of Care 92 mg/dl (65-105)
[2023-11-07] MEDS: MINERAL OIL/WHITE PETROLATUM OINTMENT 1 APPLIC EACH EYE ×4 (08:00→21:00)
[2023-11-07] MEDS: ENOXAPARIN 40 MG/0.4 ML SYRINGE SUB-Q (08:10)
[2023-11-07] MEDS: ASPIRIN 325 MG TABLET FEED TUBE (08:10)
[2023-11-07] MEDS: POTASSIUM CHLORIDE 20 MEQ PACKET (FOR LIQUID) 40 MEQ FEED TUBE ×3 (08:11→16:23)
[2023-11-07] MEDS: LACTATED RINGERS 1,000 ML 100 ML IV CONT (08:11)
[2023-11-07] MEDS: MAGNESIUM SULFATE 3GM/D5W100ML 3 GM/100 ML BAG IVPB (08:26)
[2023-11-07] MEDS: PANTOPRAZOLE SODIUM IV 40 MG VIAL IV PUSH (08:26)
[2023-11-07] MEDS: CALCIUM GLUC 2,000 MG/NS 100ML 2,000 MG/100 ML BAG 100 MG IVPB (08:27)
[2023-11-07 08:44] LABS: Alveolar/Arterial O2 Gradient 65.3 mmHg; Base Excess ABG -4.8 mEq/l (+/-2.0); Carboxyhemoglobin 0.3 % THb (0-2.0); Fractional Inspired Oxygen 25 %; HCO3 ABG 20.9 mEq/l (22.0-26.0); Methemoglobin ABG 0.5 %THb (0-1.5); Oxygen Content ABG 17.3 %vol (16.0-22.0); Oxygen Saturation ABG 91.1 % (95.0-100.0); Oxyhemoglobin 91.7 % THb (90.0-100.0); PCO2 ABG 40.9 mmHg (35.0-45.0); PO2 ABG 64.4 mmHg (80.0-100.0); PO2 FiO2 Ratio Arterial Blood 2.58 %; Reduced Hemoglobin 7.5 %THb (0-5.0); Total Hemoglobin 13.4 g/dL (12.0-18.0); pH ABG 7.326 (7.350-7.450)
[2023-11-07 08:45] LABS: Modified Allen's Test Pass; Site Drawn RIGHT RADIAL
[2023-11-07 08:46] LABS: Arterial Blood Gas PEEP 5 cmH2O; Arterial Blood Gas Pressure Support 5 cmH2O; Arterial Blood Gas Vent Mode SPONTANEOUS; Device VENTILATOR
--- NOTE | 2023-11-07 09:08 | PC.NURSE ---
Extubated to 1 L NC. Reviewed precautions with patient and family.
[2023-11-07] MEDS: METOPROLOL TARTRATE 12.5 MG TABLET PO ×2 (09:24→21:24)
--- NOTE | 2023-11-07 09:49 | PM.PNCARD ---
Progress Note: A&P Assessment and Plan (1) Cardiac arrest with ventricular fibrillation: Code(s): I46.9 - Cardiac arrest, cause unspecified; I49.01 - Ventricular fibrillation Status: Acute Assessment and Plan: Patient presents with VF arrest successfully defibrillated later followed by PEA successfully resuscitated. Echo revealed dilated LV with severe hypokinesis to akinesis of the mid apical segments with sparing of the bases severe LV dysfunction EF 25 %. Coronary angiography revealed mild nonobstructive CAD more consistent/suggestive of takotsubo cardiomyopathy. Very lengthy discussion held with patient and family with regard to pathophysiology of takotsubo cardiomyopathy and if so the expectation normalization of LV function. Explained that if her LV does not significantly improve/normalize this will be consistent with nonischemic etiology but not Takotsubo CM. I strongly advised either weight LifeVest prior to discharge for protection as patient remains at risk for recurrent VT/VF particularly with LV dysfunction EF less than 35%. The verbalized understanding and agreed. I discussed with Dr. Heath sin who also agrees with this plan of care. Explained to the family plan to optimize guideline directed medical therapy as much as she tolerates hemodynamically. Ideally would initiate Entresto, Toprol XL, and possibly spironolactone. She is not clinically in decompensated heart failure. Hold off on diuretics at this time. Overall, if the EF improves greater than 35% she would not require ICD implantation given identified explanation. If however EF remains less than 35% 90 days from initial diagnosis ICD implantation will be strongly advised. Plan repeat echocardiogram in 1-2 months as an outpatient to reassess LV function. I spent 45 minutes in the care of this patient at bedside including discussion patient family, colleagues, chart review, medical decision-making, and documentation. (2) Cardiomyopathy: Code(s): I42.9 - Cardiomyopathy, unspecified Status: Acute Assessment and Plan: Severe LV dysfunction nonischemic etiology with nonobstructive CAD and LHC. Echocardiogram in clinical picture most consistent with takotsubo cardiomyopathy as discussed above. (3) Non-STEMI (non-ST elevated myocardial infarction): Code(s): I21.4 - Non-ST elevation (NSTEMI) myocardial infarction Status: Acute Assessment and Plan: No evidence of obstructive CAD as explanation, troponin elevation secondary to takotsubo cardiomyopathy status post VF arrest. No evidence for acute coronary syndrome. Continue aspirin 81 mg daily, resume statin therapy with liver function tests have improved/normalized. . (4) CAD (coronary artery disease): Code(s): I25.10 - Atherosclerotic heart disease of [place] coronary artery without angina pectoris Status: Acute Assessment and Plan: Nonobstructive CAD on [facility] noted. Aggressive medical management and risk factor modification counseling performed. Aspirin 81 mg daily, statin therapy once her elevated liver function tests have significant improved and or normalized for additional cardiovascular risk reduction. Smoking cessation counseling performed. (5) HLD (hyperlipidemia): Qualifiers: Hyperlipidemia type: mixed hyperlipidemia Qualified Code(s): E78.2 - Mixed hyperlipidemia Code(s): E78.5 - Hyperlipidemia, unspecified Status: Acute Assessment and Plan: Resume statin therapy once LFTs have improved/normalized as above with goal LDL less than 70. (6) Shock: Code(s): R57.9 - Shock, unspecified Status: Acute Assessment and Plan: Resolved. Levophed discontinued. (7) Acute respiratory failure: Code(s): J96.00 - Acute respiratory failure, unspecified whether with hypoxia or hypercapnia Status: Acute Assessment and Plan: Improving, status post extubation this morning. Gissell
--- NOTE | 2023-11-07 10:30 | PC.NURSE ---
Dr. Batres at bedside updating family on plan of care.
[2023-11-07] MEDS: ACETAMINOPHEN 325 MG TABLET 650 MG PO (11:07)
--- NOTE | 2023-11-07 11:15 | PC.NURSE ---
Updated patient on plan of care, precautions and current condition. Patient nodded appropriately.
[2023-11-07 11:59] LABS: Glucose Point of Care 89 mg/dl (65-105)
[2023-11-07] MEDS: HYDROcodone/acetaminophen (*CRX) 5-325 MG TABLET 1 TAB PO ×2 (14:04→19:34)
[2023-11-07] MEDS: DEXTROSE 50% 25 GM/50 ML SYRINGE IV PUSH (16:02)
[2023-11-07 16:22] LABS: Glucose Point of Care 62 mg/dl (65-105)
[2023-11-07 16:40] LABS: Glucose Point of Care 105 mg/dl (65-105)
[2023-11-07] MEDS: MORPHINE SULFATE (*CRX) 2 MG/ML INJ IV PUSH ×2 (16:58→21:20)
[2023-11-07] MEDS: DEXTROSE 5%/0.45% SOD CHL 1,000 ML 75 ML IV CONT (16:59)
[2023-11-07 17:33] LABS: Glucose Point of Care 91 mg/dl (65-105)
--- NOTE | 2023-11-07 19:15 | ECG_ITS ---
Measurements Intervals [place] Rate: 132 P: 79 MI: 104 QRS: 58 QRSD: 94 T: 247 QT: 340 QTc: 505 Interpretive Statements SINUS TACHYCARDIA WITH SHORT MI INTERVAL ST DEVIATION AND MODERATE T-WAVE ABNORMALITY, CONSIDER ANTEROLATERAL ISCHEMIA ST DEVIATION AND MODERATE T-WAVE ABNORMALITY, CONSIDER INFERIOR ISCHEMIA ABNORMAL ECG COMPARED TO ECG 11/06/2023 08:19:37 SINUS TACHYCARDIA NOW PRESENT Electronically Signed On 11-07-2023 18:25:29 LACE SEWER by Haroldo Batres M.D.
[2023-11-07 20:52] LABS: Glucose Point of Care 91 mg/dl (65-105)
[2023-11-07] MEDS: LIDOCAINE 5% PATCH 2 PATCH TRANSDERM (20:59)
[2023-11-08] VITALS (20 sets, daily range): BP systolic 99–132; BP diastolic 49–75; PULSE 53–113; RESP 12–21; TEMP 37.1–38.3; O2SAT 93–100
[2023-11-08] MEDS: HYDROcodone/acetaminophen (*CRX) 5-325 MG TABLET 1 TAB PO ×6 (00:06→20:14)
[2023-11-08] MEDS: PIPERACILLN/TAZ 3.375GM/NS50ML 3.375 GM/50 ML BAG IVPB ×5 (00:07→23:24)
[2023-11-08 00:12] LABS: Glucose Point of Care 84 mg/dl (65-105)
[2023-11-08] MEDS: MORPHINE SULFATE (*CRX) 2 MG/ML INJ IV PUSH ×5 (02:42→23:33)
[2023-11-08 04:40] LABS: Glucose Point of Care 99 mg/dl (65-105)
[2023-11-08 04:53] LABS: Hematocrit 34.5 % (37.0-47.0); Hemoglobin 11.1 g/dL (12.0-15.0); Mean Corpuscular HGB Conc 32.2 g/dl (32-36); Mean Corpuscular Hemoglobin 29.4 pg (26-34); Mean Corpuscular Volume 91.5 fl (80-100); Mean Platelet Volume 9.9 fl (7.4-10.4); Platelet Count Result 159 k/mm3 (150-375); Red Blood Count 3.77 M/mm3 (4.2-5.4); Red Cell Distribution Width 13.5 % (11.5-14.5); White Blood Count 9.6 K/mm3 (4.5-10.0)
[2023-11-08] MEDS: CENTRAL LINE FLUSH 10 ML IV PUSH ×3 (05:03→20:14)
[2023-11-08 05:08] LABS: Alveolar/Arterial O2 Gradient 68.9 mmHg; Base Excess ABG 0.2 mEq/l (+/-2.0); Carboxyhemoglobin 0.3 % THb (0-2.0); Fractional Inspired Oxygen 24 %; HCO3 ABG 24.1 mEq/l (22.0-26.0); Methemoglobin ABG 0.4 %THb (0-1.5); Oxygen Content ABG 15.6 %vol (16.0-22.0); Oxygen Saturation ABG 91.6 % (95.0-100.0); Oxyhemoglobin 90.9 % THb (90.0-100.0); PCO2 ABG 36.4 mmHg (35.0-45.0); PO2 ABG 58.9 mmHg (80.0-100.0); PO2 FiO2 Ratio Arterial Blood 2.45 %; Reduced Hemoglobin 8.4 %THb (0-5.0); Total Hemoglobin 12.2 g/dL (12.0-18.0); pH ABG 7.439 (7.350-7.450)
[2023-11-08 05:09] LABS: Device NASAL CANNULA; Modified Allen's Test Pass; Site Drawn RIGHT RADIAL
[2023-11-08 05:15] LABS: Alanine Aminotransferase 177 U/L (6-35); Alkaline Phosphatase 78 U/L (38-126); Anion Gap 3 mmol/L (8-16); Aspartate Amino Transferase 107 U/L (14-36); Bilirubin,Total 0.6 mg/dL (0.2-1.3); Blood Urea Nitrogen 4 mg/dL (7-17); Calcium 7.3 mg/dL (8.4-10.2); Carbon Dioxide 28 mmol/L (22-30); Chloride 106 mmol/L (98-107); Creatine Kinase 612 U/L (30-135); Estimated CRCL calculation 70 ml/min; Estimated Glomerular Filt Rate > 60; Glucose 97 mg/dL (65-110); Phosphorus 1.6 mg/dL (2.5-4.5); Potassium 3.3 mmol/L (3.4-5.0); Sodium 137 mmol/L (137-145)
[2023-11-08 07:44] LABS: Glucose Point of Care 106 mg/dl (65-105)
--- NOTE | 2023-11-08 08:10 | WPDINTPN ---
Progress Note: A&P Assessment and Plan (1) Sepsis: Code(s): A41.9 - Sepsis, unspecified organism Status: Acute Assessment and Plan: Although patient met criteria for sepsis on presentation there is no obvious source of infection apart from the tooth infection the patient had prior to presentation. UA does not look infected and CT scan was negative for any evidence of pneumonia. Nasal MRSA screen is negative PCR for RSV COVID and influenza is negative Blood cultures have been sent and are pending C diff was negative Vancomycin discontinued procalcitonin level was high 29.5 Continue Zosyn DC FMS, German and DC NG tube (2) Cardiac arrest with ventricular fibrillation: Code(s): I46.9 - Cardiac arrest, cause unspecified; I49.01 - Ventricular fibrillation Status: Acute Assessment and Plan: VFib cardiac arrest. Patient appears to have non ischemic cardiomyopathy CTA negative for PE EKG showed ST and T-wave abnormality but no ST elevation. Her troponin was elevated but that could be just from the cardiac arrest and CPR 11/06 Echo Summary ? 1. Left ventricular systolic function is severely reduced, estimated at 25-30% with relative sparing of the apex with severe hypokinesis to akinesis of the mid to apical segments. ? 2. Left ventricular chamber dimension is mildly enlarged. ? 3. There is no increased left ventricular wall thickness. ? 4. The left ventricular diastolic function is grade I diastolic dysfunction. ? 5. There is trace tricuspid valve regurgitation. ? 6. Mild pulmonary hypertension, estimated pulmonary arterial systolic pressure is 40 mmHg. ? 7. There is mild mitral valve regurgitation. 11/06 cardiac catheterization ? No evidence of obstructive CAD. - ejection fraction is severely reduced with global hypokinesis. Continue aspirin. Start low-dose beta-kesha and lisinopril. Patient was explained the possible adverse event associated with lisinopril in the form of angioedema and was instructed to present to ER if she develops any swelling of her tongue or throat. Patient verbalized understanding. Hold statin due to still elevated liver enzymes but are getting better QTC has normalized since propofol was discontinued Cardiology is following and further recommendations as per Cardiology Cautious IV fluids for rhabdomyolysis (3) Acute respiratory failure: Code(s): J96.00 - Acute respiratory failure, unspecified whether with hypoxia or hypercapnia Status: Acute Assessment and Plan: Acute Respiratory failure secondary to cardiac arrest CTA negative for PE ABG and PCXR reviewed Decrease rate to 22 and FiO2 25 % Low tidal volume ventilation strategy to prevent volutrauma Will perform sedation holiday and weaning trial (4) Diarrhea: Code(s): R19.7 - Diarrhea, unspecified Status: Acute Assessment and Plan: Diet improved c diff negative Discontinue vancomycin oral (5) Elevated troponin: Code(s): R79.89 - Other specified abnormal findings of blood chemistry Status: Acute Assessment and Plan: See above (6) Elevated liver enzymes: Code(s): R74.8 - Abnormal levels of other serum enzymes Status: Acute Assessment and Plan: Likely shock liver and rhabdomyolysis Monitor levels Normal bilirubin and alkaline phosphatase (7) Rhabdomyolysis: Code(s): M62.82 - Rhabdomyolysis Status: Acute Assessment and Plan: Continue IV fluids and monitor CK levels which is improving (8) Anoxic brain injury: Code(s): G93.1 - Anoxic brain damage, not elsewhere classified Status: Acute Assessment and Plan: Patient was started on hypothermia protocol and now off Nimbex and rewarming She is alert oriented and following commands with all [address] on presentation was negative for any acute change (9) Cardiomyopathy: Code(s): I42.9 - Cardiomyopathy, unspecified Statu
[2023-11-08] MEDS: CALCIUM GLUC 2,000 MG/NS 100ML 2,000 MG/100 ML BAG 100 MG IVPB ×2 (08:13→16:50)
[2023-11-08] MEDS: POTASSIUM/PHOSPHORUS/SODIUM 1.5 GM PACKET 1 PACKET FEED TUBE (08:13)
[2023-11-08] MEDS: ASPIRIN 325 MG TABLET FEED TUBE (08:14)
[2023-11-08] MEDS: ENOXAPARIN 40 MG/0.4 ML SYRINGE SUB-Q (08:14)
[2023-11-08] MEDS: METOPROLOL TARTRATE 12.5 MG TABLET PO (08:15)
[2023-11-08] MEDS: PANTOPRAZOLE SODIUM IV 40 MG VIAL IV PUSH (08:15)
[2023-11-08] MEDS: lisinopriL 5 MG TABLET PO (08:19)
[2023-11-08] MEDS: LIDOCAINE 5% PATCH 2 PATCH TRANSDERM (08:30)
[2023-11-08] MEDS: IBUPROFEN 400 MG TABLET PO ×3 (08:31→20:14)
[2023-11-08] MEDS: DEXTROSE 5%/0.45% SOD CHL 1,000 ML 75 ML IV CONT (08:35)
[2023-11-08] MEDS: POTASSIUM PHOS,M-BASIC-D-BASIC 20 MMOL in SODIUM CHLORIDE 0.9% IV 250 ML 64.17 MMOL IVPB (08:44)
--- NOTE | 2023-11-08 08:56 | PM.PNCARD ---
Progress Note: A&P Assessment and Plan (1) Cardiac arrest with ventricular fibrillation: Code(s): I46.9 - Cardiac arrest, cause unspecified; I49.01 - Ventricular fibrillation Status: Acute Assessment and Plan: Patient presents with VF arrest successfully defibrillated later followed by PEA successfully resuscitated. Echo revealed dilated LV with severe hypokinesis to akinesis of the mid apical segments with sparing of the bases severe LV dysfunction EF 25%. Coronary angiography revealed mild nonobstructive CAD more consistent/suggestive of takotsubo cardiomyopathy. Continue medical therapy with lisinopril 5mg daily Shift metoprolol tartrate to Toprol XL Will add spironolactone today, BP is tolerating the above medications so far She is not clinically in decompensated heart failure. Hold off on diuretics at this time. LifeVest order placed Plan repeat echocardiogram in 1-2 months as an outpatient to reassess LV function. (2) Cardiomyopathy: Code(s): I42.9 - Cardiomyopathy, unspecified Status: Acute Assessment and Plan: Severe LV dysfunction nonischemic etiology with nonobstructive CAD and LHC. Echocardiogram in clinical picture most consistent with takotsubo cardiomyopathy as discussed above. (3) Non-STEMI (non-ST elevated myocardial infarction): Code(s): I21.4 - Non-ST elevation (NSTEMI) myocardial infarction Status: Acute Assessment and Plan: No evidence of obstructive CAD as explanation, troponin elevation secondary to takotsubo cardiomyopathy status post VF arrest. No evidence for acute coronary syndrome. Continue aspirin 81 mg daily, resume statin therapy with liver function tests have improved/normalized. . (4) CAD (coronary artery disease): Code(s): I25.10 - Atherosclerotic heart disease of [place] coronary artery without angina pectoris Status: Acute Assessment and Plan: Nonobstructive CAD on LHC noted. Aggressive medical management and risk factor modification counseling performed. Aspirin 81 mg daily, statin therapy once her elevated liver function tests have significant improved and or normalized for additional cardiovascular risk reduction. Smoking cessation recommended (5) HLD (hyperlipidemia): Qualifiers: Hyperlipidemia type: mixed hyperlipidemia Qualified Code(s): E78.2 - Mixed hyperlipidemia Code(s): E78.5 - Hyperlipidemia, unspecified Status: Acute Assessment and Plan: Resume statin therapy once LFTs have improved/normalized as above with goal LDL less than 70. (6) Shock: Code(s): R57.9 - Shock, unspecified Status: Acute Assessment and Plan: Resolved. Levophed discontinued. (7) Acute respiratory failure: Code(s): J96.00 - Acute respiratory failure, unspecified whether with hypoxia or hypercapnia Status: Acute Assessment and Plan: Resolved. (8) Tobacco abuse: Code(s): Z72.0 - Tobacco use Status: Acute Assessment and Plan: Smoking cessation recommended Subjective Date/time seen: 11/08/23 08:56 Interval history: Cardiology follow up for cardiac arrest, cardiomyopathy Patient extubated this morning. Patient remains lethargic but eyes open, awake, appearing weak, somewhat anxious, tearful. Family at bedside including . Very lengthy discussion held with the patient, her and sister bedside. All questions answered to their satisfaction. Date of service 11/08/2023: Patient is awake, alert, and oriented this morning. Reviewed plan of care with the patient and family members at the bedside. She has reproducible chest pain from chest compressions/Kody device. No shortness of breath. Review of Systems Review of Systems: Remainder of the review of systems is otherwise negative aside from that noted in the HPI. All systems reviewed & are unremarkable except as noted in HPI and below ROS unobtainable: Yes unobt
[2023-11-08] MEDS: ONDANSETRON INJ 4 MG/2 ML VIAL IV PUSH ×3 (09:57→17:40)
[2023-11-08 11:22] LABS: Glucose Point of Care 103 mg/dl (65-105)
[2023-11-08] MEDS: AMIODARONE 360 MG/D5W 200 ML 360 MG/200 ML BAG 33.33 MG IV CONT (13:47)
[2023-11-08] MEDS: AMIODARONE 150 MG/D5W 100 ML 150 MG/100 ML BAG 600 MG IV CONT (13:48)
[2023-11-08 15:42] LABS: Anion Gap 4 mmol/L (8-16); Blood Urea Nitrogen 6 mg/dL (7-17); Calcium 7.4 mg/dL (8.4-10.2); Carbon Dioxide 26 mmol/L (22-30); Chloride 105 mmol/L (98-107); Estimated CRCL calculation 70 ml/min; Estimated Glomerular Filt Rate > 60; Glucose 124 mg/dL (65-110); Magnesium 1.9 mg/dL (1.6-2.3); Phosphorus 4.5 mg/dL (2.5-4.5); Potassium 3.6 mmol/L (3.4-5.0); Sodium 135 mmol/L (137-145)
--- NOTE | 2023-11-08 16:08 | PCCPR ---
Patient visited regarding cardiopulmonary rehab upon discharge. Spoke with family and patient and information left at bedside. Will follow up upon discharge.
[2023-11-08 16:22] LABS: Glucose Point of Care 116 mg/dl (65-105)
[2023-11-08] MEDS: POTASSIUM CHLORIDE 20 MEQ ER TABLET 40 MEQ PO ×2 (16:51→23:24)
[2023-11-08] MEDS: MAGNESIUM SULF 1 GM/D5W 100 ML 1 GM/100 ML BAG IVPB (16:51)
[2023-11-08] MEDS: AMIODARONE 360 MG/D5W 200 ML 360 MG/200 ML BAG 16.67 MG IV CONT (20:07)
[2023-11-08 20:36] LABS: Anion Gap 2 mmol/L (8-16); Blood Urea Nitrogen 6 mg/dL (7-17); Calcium 8.3 mg/dL (8.4-10.2); Carbon Dioxide 28 mmol/L (22-30); Chloride 105 mmol/L (98-107); Estimated CRCL calculation 70 ml/min; Estimated Glomerular Filt Rate > 60; Glucose 116 mg/dL (65-110); Magnesium 2.3 mg/dL (1.6-2.3); Potassium 3.6 mmol/L (3.4-5.0); Sodium 135 mmol/L (137-145)
[2023-11-08] MEDS: ALTEPLASE 2 MG VIAL (CATHFLO) IV PUSH ×2 (21:45→23:37)
[2023-11-09] VITALS (15 sets, daily range): BP systolic 100–145; BP diastolic 52–89; PULSE 70–92; RESP 13–24; TEMP 36.6–37.2; O2SAT 95–98
[2023-11-09] MEDS: IBUPROFEN 400 MG TABLET PO ×2 (01:48→16:42)
[2023-11-09 01:54] LABS: Glucose Point of Care 131 mg/dl (65-105)
[2023-11-09] MEDS: HYDROcodone/acetaminophen (*CRX) 5-325 MG TABLET 1 TAB PO ×4 (04:15→18:50)
[2023-11-09] MEDS: CENTRAL LINE FLUSH 10 ML IV PUSH ×2 (04:16→13:18)
[2023-11-09] MEDS: DEXTROSE 5%/0.45% SOD CHL 1,000 ML 75 ML IV CONT ×2 (04:21→19:51)
[2023-11-09 04:40] LABS: Hematocrit 31.4 % (37.0-47.0); Mean Corpuscular HGB Conc 31.8 g/dl (32-36); Mean Corpuscular Hemoglobin 29.2 pg (26-34); Mean Corpuscular Volume 91.8 fl (80-100); Mean Platelet Volume 9.9 fl (7.4-10.4); Platelet Count Result 144 k/mm3 (150-375); Red Blood Count 3.42 M/mm3 (4.2-5.4); Red Cell Distribution Width 13.5 % (11.5-14.5); White Blood Count 8.4 K/mm3 (4.5-10.0)
[2023-11-09 04:55] LABS: Alanine Aminotransferase 134 U/L (6-35); Albumin Level 2.8 g/dL (3.5-5.1); Alkaline Phosphatase 71 U/L (38-126); Anion Gap 2 mmol/L (8-16); Aspartate Amino Transferase 66 U/L (14-36); Bilirubin,Total 0.4 mg/dL (0.2-1.3); Blood Urea Nitrogen 4 mg/dL (7-17); Carbon Dioxide 28 mmol/L (22-30); Chloride 106 mmol/L (98-107); Creatine Kinase 257 U/L (30-135); Estimated CRCL calculation 70 ml/min; Estimated Glomerular Filt Rate > 60; Glucose 111 mg/dL (65-110); Magnesium 2.2 mg/dL (1.6-2.3); Phosphorus 3.1 mg/dL (2.5-4.5); Potassium 3.5 mmol/L (3.4-5.0); Sodium 136 mmol/L (137-145)
[2023-11-09] MEDS: PIPERACILLN/TAZ 3.375GM/NS50ML 3.375 GM/50 ML BAG IVPB ×3 (05:01→17:20)
[2023-11-09] MEDS: AMIODARONE 360 MG/D5W 200 ML 360 MG/200 ML BAG 16.67 MG IV CONT (05:02)
[2023-11-09 05:30] LABS: Alveolar/Arterial O2 Gradient 59.1 mmHg; Base Excess ABG -0.6 mEq/l (+/-2.0); Carboxyhemoglobin 0.2 % THb (0-2.0); Fractional Inspired Oxygen 28 %; HCO3 ABG 24.6 mEq/l (22.0-26.0); Methemoglobin ABG 0.3 %THb (0-1.5); Oxygen Content ABG 14.9 %vol (16.0-22.0); Oxygen Saturation ABG 96.7 % (95.0-100.0); Oxyhemoglobin 95.3 % THb (90.0-100.0); PCO2 ABG 42.8 mmHg (35.0-45.0); PO2 FiO2 Ratio Arterial Blood 3.21 %; Reduced Hemoglobin 4.2 %THb (0-5.0); pH ABG 7.377 (7.350-7.450)
[2023-11-09 05:32] LABS: Device NASAL CANNULA; Modified Allen's Test Pass; Site Drawn RIGHT RADIAL
[2023-11-09] MEDS: MORPHINE SULFATE (*CRX) 2 MG/ML INJ IV PUSH ×3 (06:25→13:17)
[2023-11-09] MEDS: METOPROLOL SUCCINATE EXT REL 12.5 MG TABCR PO (08:01)
[2023-11-09] MEDS: PANTOPRAZOLE SODIUM IV 40 MG VIAL IV PUSH (08:01)
[2023-11-09] MEDS: lisinopriL 5 MG TABLET PO (08:01)
[2023-11-09] MEDS: ASPIRIN 325 MG TABLET FEED TUBE (08:01)
[2023-11-09] MEDS: LIDOCAINE 5% PATCH 2 PATCH TRANSDERM (08:02)
[2023-11-09] MEDS: ENOXAPARIN 40 MG/0.4 ML SYRINGE SUB-Q (08:02)
[2023-11-09] MEDS: ONDANSETRON INJ 4 MG/2 ML VIAL IV PUSH ×3 (08:03→16:42)
[2023-11-09] MEDS: SPIRONOLACTONE 12.5 MG TABLET PO (08:03)
--- NOTE | 2023-11-09 08:52 | PM.PNCARD ---
Progress Note: A&P Assessment and Plan (1) Cardiac arrest with ventricular fibrillation: Code(s): I46.9 - Cardiac arrest, cause unspecified; I49.01 - Ventricular fibrillation <OMAR Arredondo - Last Filed: 11/09/23 11:59> Status: Acute <Guerline WomackLoi OMAR Christensen - Last Filed: 11/09/23 11:59> Assessment and Plan: Patient presents with VF arrest successfully defibrillated later followed by PEA successfully resuscitated. Echo revealed dilated LV with severe hypokinesis to akinesis of the mid apical segments with sparing of the bases severe LV dysfunction EF 25%. Coronary angiography revealed mild nonobstructive CAD more consistent/suggestive of takotsubo cardiomyopathy. Continue medical therapy with lisinopril 5mg daily, Toprol XL 12.5mg daily, and spironolactone 12.5mg daily. She is not clinically in decompensated heart failure. Hold off on diuretics at this time. Discussed proceeding with ICD placement during this hospitalization vs. LifeVest. Implantable ICD indicated for secondary prevention because of VF arrest. She has also had VT during hospitalization. Plan for ICD placement with Dr. Quinteros. Plan repeat echocardiogram in 1-2 months as an outpatient to reassess LV function. <OMAR Arredondo - Last Filed: 11/09/23 11:59> (2) NSVT (nonsustained ventricular tachycardia): Code(s): I47.29 - Other ventricular tachycardia <OMAR Arredondo - Last Filed: 11/09/23 11:59> Status: Acute <OMAR Arredondo - Last Filed: 11/09/23 11:59> Assessment and Plan: Patient had a couple of runs of NSVT yesterday afternoon, longest run 36 beats. She was asymptomatic. Electrolytes WNL at the time. She was started on amiodarone drip at that time and has not had any recurrent VT. Continue IV amiodarone for now. <OMAR Arredondo - Last Filed: 11/09/23 11:59> (3) Acute systolic CHF (congestive heart failure): Code(s): I50.21 - Acute systolic (congestive) heart failure <OMAR Arredondo - Last Filed: 11/09/23 11:59> Status: Acute <OMAR Arredondo - Last Filed: 11/09/23 11:59> (4) Cardiomyopathy: Code(s): I42.9 - Cardiomyopathy, unspecified <OMAR Arredondo - Last Filed: 11/09/23 11:59> Status: Acute <OMAR Arredondo - Last Filed: 11/09/23 11:59> Assessment and Plan: Severe LV dysfunction nonischemic etiology with nonobstructive CAD and LHC. Echocardiogram in clinical picture most consistent with takotsubo cardiomyopathy as discussed above. <OMAR Arredondo - Last Filed: 11/09/23 11:59> (5) Non-STEMI (non-ST elevated myocardial infarction): Code(s): I21.4 - Non-ST elevation (NSTEMI) myocardial infarction <OMAR Arredondo - Last Filed: 11/09/23 11:59> Status: Acute <OMAR Arredondo - Last Filed: 11/09/23 11:59> Assessment and Plan: No evidence of obstructive CAD as explanation, troponin elevation secondary to takotsubo cardiomyopathy status post VF arrest. No evidence for acute coronary syndrome. Continue aspirin 81 mg daily, resume statin therapy with liver function tests have improved/normalized. . <OMAR Arredondo - Last Filed: 11/09/23 11:59> <Yenny Quinteros MD - Last Filed: 11/10/23 15:02> (6) CAD (coronary artery disease): Code(s): I25.10 - Atherosclerotic heart disease of [place] coronary artery without angina pectoris <OMAR Arredondo - Last Filed: 11/09/23 11:59> Status: Acute <OMAR Arredondo - Last Filed: 11/09/23 11:59> Assessment and Plan: Nonobstructive CAD on LHC noted. Aggressive medical management and risk factor modification counseling performed. Aspirin 81 mg daily, AST/ALT significantly improved, will resume statin. Smoking cessation. <Guerline Christensen APN-C - Last Filed: 11/09/23 11:59> (7) HLD (hyperlipidemia): Qualifiers: Hype
[2023-11-09] MEDS: KCL 40 MEQ/WATER 100 ML 100 ML 25 ML IVPB (09:58)
--- NOTE | 2023-11-09 16:30 | WPDGICN ---
Assessment and Plan Assessment and plan (1) Elevated liver enzymes: Code(s): R74.8 - Abnormal levels of other serum enzymes Status: Acute Assessment and Plan: this is in setting of cardiac arrest with VF and subsequent shock liver, also noted rhabdomyolysis no history of liver disease transaminases already trending down, no need of further work up during this hospitalization but liver enzymes can be check again as outpatient and if abnormal then we can see in office as needed (2) Cardiac arrest with ventricular fibrillation: Code(s): I46.9 - Cardiac arrest, cause unspecified; I49.01 - Ventricular fibrillation Status: Acute Assessment and Plan: by cardiology patient will get AICD in few more days (3) Non-STEMI (non-ST elevated myocardial infarction): Code(s): I21.4 - Non-ST elevation (NSTEMI) myocardial infarction Status: Acute (4) Cardiomyopathy: Code(s): I42.9 - Cardiomyopathy, unspecified Status: Acute Assessment and Plan: new diagnosis on amiodarone by cardiology and front end alignment specialist (5) Shock: Code(s): R57.9 - Shock, unspecified Status: Acute (6) Rhabdomyolysis: Code(s): M62.82 - Rhabdomyolysis Status: Acute Assessment and Plan: this is also can explain elevated liver enzymes (7) Musculoskeletal chest pain: Code(s): R07.89 - Other chest pain Status: Acute GI Consult Note Consult date/time: 11/09/23 16:30 Reason for consult: elevated liver enzymes, shock liver in setting of cardiac arrest/VF HPI: Elizabeth Mari is a 63 year old female who was admitted to hospital after new onset of VF arrest successfully defibrillated by EMS followed by PEA successfully resuscitated.? Echo revealed dilated LV with severe hypokinesis to akinesis of the mid apical segments with sparing of the bases severe LV dysfunction EF 25%.? Coronary angiography revealed mild nonobstructive CAD more consistent/suggestive of takotsubo cardiomyopathy.?Patient has been in ICU since and doing better. Noted elevated transaminases but trending down, also CK consistent with rhabdomyolysis. She denies history of liver disease or alcohol use. She is nauseous since episode but no other GI issues. Review of Systems Constitutional: Constitutional: Denies chills Eyes: Eyes: Denies blurry vision ENT: Reports Normal hearing present Cardiovascular: Cardiovascular: Denies leg edema Respiratory: Respiratory: Denies cough Gastrointestinal: Gastrointestinal: Reports nausea Genitourinary: Genitourinary: Denies urinary urgency Musculoskeletal: Musculoskeletal: Denies back pain Integumentary/Breasts: Skin/Breast: Denies rash Neurologic: Denies Abnormal speech present [facility] Past Medical History Medical History Acquired cervical spine ankylosis ACDF @ C5-C6 Depression Fracture of distal radius and ulna HLD (hyperlipidemia) Smoker Surgical History Surgical History History of appendectomy History of History of hernia repair History of hysterectomy History of parathyroidectomy Social History Social History Smoking packs per day: 1 Smoking cigarettes per day: 20.0 Years smoked: 40 Smoking pack-years: 40.00 Smoking status: Current some day smoker Tobacco type: cigarettes Second hand tobacco smoke exposure: No Alcohol intake: current Drinks per week: 4 Substance use: never Substance use type: does not use Living arrangements: with family Spiritual care concerns: No Meds Home Medications and Allergies Home Medications Medication Instructions Recorded Confirmed Type sertraline 100 mg tablet (Zoloft) 100 mg PO QAM 02/28/21 11/05/23 History rosuvastatin 5 mg tablet 5 mg PO DAILY 06/26/22 11/05/23 History Allergies Allergy/AdvReac Type Severity Reaction Status Date / Time No Kn
[2023-11-09] MEDS: METOCLOPRAMIDE HCL INJ 10 MG/2 ML VIAL 5 MG IV PUSH (16:42)
--- NOTE | 2023-11-09 18:57 | PM.IMPN ---
Progress Note: A&P Assessment and Plan (1) NSVT (nonsustained ventricular tachycardia): Code(s): I47.29 - Other ventricular tachycardia Status: Acute (2) Musculoskeletal chest pain: Code(s): R07.89 - Other chest pain Status: Acute (3) Electrolyte abnormality: Code(s): E87.8 - Other disorders of electrolyte and fluid balance, not elsewhere classified Status: Acute (4) CAD (coronary artery disease): Code(s): I25.10 - Atherosclerotic heart disease of [place] coronary artery without angina pectoris Status: Acute (5) QT prolongation: Code(s): R94.31 - Abnormal electrocardiogram [ECG] [EKG] Status: Acute (6) Cardiomyopathy: Code(s): I42.9 - Cardiomyopathy, unspecified Status: Acute (7) Tobacco abuse: Code(s): Z72.0 - Tobacco use Status: Acute (8) HLD (hyperlipidemia): Qualifiers: Hyperlipidemia type: mixed hyperlipidemia Qualified Code(s): E78.2 - Mixed hyperlipidemia Code(s): E78.5 - Hyperlipidemia, unspecified Status: Acute (9) Non-STEMI (non-ST elevated myocardial infarction): Code(s): I21.4 - Non-ST elevation (NSTEMI) myocardial infarction Status: Acute (10) Rhabdomyolysis: Code(s): M62.82 - Rhabdomyolysis Status: Acute (11) Cardiac arrest with ventricular fibrillation: Code(s): I46.9 - Cardiac arrest, cause unspecified; I49.01 - Ventricular fibrillation Status: Acute (12) Acute hyponatremia: Code(s): E87.1 - Hypo-osmolality and hyponatremia Status: Acute (13) Acute hypokalemia: Code(s): E87.6 - Hypokalemia Status: Acute (14) Depression: Code(s): F32.9 - Major depressive disorder, single episode, unspecified Status: Acute Plan Patient downgraded from ICU to IMU and signed of from event staff Service Continuous cardiopulmonary telemonitoring Continue with current cardiac meds Continue with iV amiodarone drip Follow-up closely with cardiology Patient had elevated liver enzymes after cardiac arrest which are slowly downtrending GI consult given for evaluatio and recommendations regarding resumption of the statin given her significant cardiac history She has severely depressed EF around 25% Cardiology considering AICD placement on and arranging for LifeVest Spoke with patient in detail regarding tobacco cessation once she goes home ? Patient seen and examined at bedside during my morning rounds ? Collaborated with patient's nurse at the bedside in detail and addressed all concerns ? Labs, electrolytes, radiology, investigations and test results reviewed ? Consult/Nursing/Ancilliary notes on the chart reviewed and appreciated ? Spoke with patient/ at the bedside and answered all the questions that they had Repeat labs in a.m. Electrolyte replacement as per protocol. Patient will be monitored very closely on the floor. Further recommendations as per the hospital course. Dependence on nicotine from cigarettes: Tobacco abuse counseling: Patient smokes cigarettes on a chronic basis. Strictly advised patient to cut down on or quit smoking. Nicotine patch ordered. ~5 minutes spent on tobacco cessation counseling with the patient. Websites - http://smokefree.gov & http://www.[employer].com ? Quitlines - 5-405-NODC-NOW ( ) ? [employer] Apps - [employer] ? Text Messages - [employer] SystemsTXT ([place] [id number]) Time Spent With Patient Time with patient: 15 - 25 minutes Subjective Date/time seen: 11/09/23 18:57 Interval history: Patient lying in bed. Feels weak and tired. She is concerned about her depleted heart function and chronic aches and pains. Review of Systems Review of Systems: 14 systems were reviewed with pertinent positives and negatives per HPI. Except as documented in the HPI/progress notes, all other systems were reviewed and are negative. Exam Narrative: PHYSI
[2023-11-09] MEDS: NICOTINE (*PBKC) 7 MG PATCH 1 PATCH TRANSDERM (19:58)
[2023-11-10] VITALS (19 sets, daily range): BP systolic 120–162; BP diastolic 69–97; PULSE 79–106; RESP 11–26; TEMP 36.6–37.3; O2SAT 92–100
[2023-11-10] MEDS: FLUCONAZOLE 150 MG TABLET PO (01:14)
[2023-11-10] MEDS: PIPERACILLN/TAZ 3.375GM/NS50ML 3.375 GM/50 ML BAG IVPB ×2 (01:15→04:53)
[2023-11-10] MEDS: HYDROcodone/acetaminophen (*CRX) 5-325 MG TABLET 1 TAB PO ×6 (01:31→22:47)
[2023-11-10 03:54] LABS: Hematocrit 31.7 % (37.0-47.0); Hemoglobin 10.2 g/dL (12.0-15.0); Mean Corpuscular HGB Conc 32.2 g/dl (32-36); Mean Corpuscular Hemoglobin 29.5 pg (26-34); Mean Corpuscular Volume 91.6 fl (80-100); Platelet Count Result 170 k/mm3 (150-375); Red Blood Count 3.46 M/mm3 (4.2-5.4); Red Cell Distribution Width 13.7 % (11.5-14.5); White Blood Count 8.4 K/mm3 (4.5-10.0)
[2023-11-10 04:12] LABS: Alanine Aminotransferase 110 U/L (6-35); Alkaline Phosphatase 77 U/L (38-126); Anion Gap 1 mmol/L (8-16); Aspartate Amino Transferase 42 U/L (14-36); Bilirubin,Total 0.5 mg/dL (0.2-1.3); Blood Urea Nitrogen 3 mg/dL (7-17); Calcium 8.4 mg/dL (8.4-10.2); Carbon Dioxide 29 mmol/L (22-30); Chloride 109 mmol/L (98-107); Creatine Kinase 170 U/L (30-135); Estimated CRCL calculation 83 ml/min; Estimated Glomerular Filt Rate > 60; Glucose 110 mg/dL (65-110); Magnesium 1.9 mg/dL (1.6-2.3); Phosphorus 3.1 mg/dL (2.5-4.5); Potassium 4.3 mmol/L (3.4-5.0); Sodium 139 mmol/L (137-145)
[2023-11-10] MEDS: AMIODARONE 360 MG/D5W 200 ML 360 MG/200 ML BAG 16.67 MG IV CONT ×2 (04:52→16:24)
[2023-11-10] MEDS: IBUPROFEN 400 MG TABLET PO ×2 (04:53→19:46)
[2023-11-10 05:35] LABS: Alveolar/Arterial O2 Gradient 65.6 mmHg; Base Excess ABG -2.9 mEq/l (+/-2.0); Carboxyhemoglobin 0.3 % THb (0-2.0); Fractional Inspired Oxygen 28 %; HCO3 ABG 21.9 mEq/l (22.0-26.0); Methemoglobin ABG 0.4 %THb (0-1.5); Oxygen Content ABG 15.1 %vol (16.0-22.0); Oxygen Saturation ABG 96.7 % (95.0-100.0); PCO2 ABG 38.1 mmHg (35.0-45.0); PO2 ABG 89.1 mmHg (80.0-100.0); PO2 FiO2 Ratio Arterial Blood 3.18 %; Reduced Hemoglobin 4.3 %THb (0-5.0); Total Hemoglobin 11.2 g/dL (12.0-18.0); pH ABG 7.377 (7.350-7.450)
[2023-11-10 05:36] LABS: Device NASAL CANNULA; Modified Allen's Test Pass; Site Drawn RIGHT RADIAL
[2023-11-10] MEDS: LIDOCAINE 5% PATCH 2 PATCH TRANSDERM (08:39)
[2023-11-10] MEDS: ASPIRIN 325 MG TABLET FEED TUBE (08:39)
[2023-11-10] MEDS: ENOXAPARIN 40 MG/0.4 ML SYRINGE SUB-Q (08:39)
[2023-11-10] MEDS: METOPROLOL SUCCINATE EXT REL 12.5 MG TABCR PO (08:40)
[2023-11-10] MEDS: lisinopriL 5 MG TABLET PO (08:40)
[2023-11-10] MEDS: PANTOPRAZOLE SODIUM IV 40 MG VIAL IV PUSH (08:40)
[2023-11-10] MEDS: ROSUVASTATIN 10 MG TABLET PO (08:41)
[2023-11-10] MEDS: SPIRONOLACTONE 12.5 MG TABLET PO (08:41)
[2023-11-10] MEDS: DEXTROSE 5%/0.45% SOD CHL 1,000 ML 75 ML IV CONT ×2 (09:35→22:47)
[2023-11-10] MEDS: SERTRALINE HCL 50 MG TABLET 100 MG PO (13:59)
[2023-11-10] MEDS: IPRATROPIUM 0.5 MG/ALBUTEROL SULFATE 2.5 MG AMPUL.NEB 3 ML INHALATION ×2 (14:13→20:22)
--- NOTE | 2023-11-10 14:21 | PM.IMPN ---
Progress Note: A&P Assessment and Plan (1) NSVT (nonsustained ventricular tachycardia): Code(s): I47.29 - Other ventricular tachycardia Status: Acute (2) Musculoskeletal chest pain: Code(s): R07.89 - Other chest pain Status: Acute (3) Electrolyte abnormality: Code(s): E87.8 - Other disorders of electrolyte and fluid balance, not elsewhere classified Status: Acute (4) CAD (coronary artery disease): Code(s): I25.10 - Atherosclerotic heart disease of [place] coronary artery without angina pectoris Status: Acute (5) QT prolongation: Code(s): R94.31 - Abnormal electrocardiogram [ECG] [EKG] Status: Acute (6) Cardiomyopathy: Code(s): I42.9 - Cardiomyopathy, unspecified Status: Acute (7) Tobacco abuse: Code(s): Z72.0 - Tobacco use Status: Acute (8) HLD (hyperlipidemia): Qualifiers: Hyperlipidemia type: mixed hyperlipidemia Qualified Code(s): E78.2 - Mixed hyperlipidemia Code(s): E78.5 - Hyperlipidemia, unspecified Status: Acute (9) Non-STEMI (non-ST elevated myocardial infarction): Code(s): I21.4 - Non-ST elevation (NSTEMI) myocardial infarction Status: Acute (10) Rhabdomyolysis: Code(s): M62.82 - Rhabdomyolysis Status: Acute (11) Cardiac arrest with ventricular fibrillation: Code(s): I46.9 - Cardiac arrest, cause unspecified; I49.01 - Ventricular fibrillation Status: Acute (12) Acute hyponatremia: Code(s): E87.1 - Hypo-osmolality and hyponatremia Status: Acute (13) Acute hypokalemia: Code(s): E87.6 - Hypokalemia Status: Acute (14) Depression: Code(s): F32.9 - Major depressive disorder, single episode, unspecified Status: Acute Plan Patient downgraded from ICU to IMU and signed off from crating and moving estimator Service Continuous cardiopulmonary telemonitoring Continue with current cardiac meds Continue with IV amiodarone drip, to be switched to upon discharge Follow-up closely with cardiology Patient had elevated liver enzymes after cardiac arrest which are slowly downtrending GI consult given for evaluation and recommendations regarding resumption of the statin given her significant cardiac history Her CPK levels and LFTs are continuing to downtrend She has severely depressed EF around 25% Cardiology considering AICD placement in am Keep patient NPO after midnight Patient restarted on her Zoloft Duonebs breathing treatments ordered as needed for shortness of breath Spoke with patient in detail regarding tobacco cessation once she goes home ? Patient seen and examined at bedside during my morning rounds ? Collaborated with patient's nurse at the bedside in detail and addressed all concerns ? Labs, electrolytes, radiology, investigations and test results reviewed ? Consult/Nursing/Ancilliary notes on the chart reviewed and appreciated ? Spoke with patient/ at the bedside and answered all the questions that they had Repeat labs in a.m. Electrolyte replacement as per protocol. Patient will be monitored very closely on the floor. Further recommendations as per the hospital course. Dependence on nicotine from cigarettes: Tobacco abuse counseling: Patient smokes cigarettes on a chronic basis. Strictly advised patient to cut down on or quit smoking. Nicotine patch ordered. ~5 minutes spent on tobacco cessation counseling with the patient. Websites - http://smokefree.gov & http://www.quitSceneDoc.com ? Quitlines - 7-007-DTHV-NOW ( ) ? Smokefree Apps - [employer] ? Text Messages - [employer]T ([place] [id number]) Time Spent With Patient Time with patient: 15 - 25 minutes Subjective Date/time seen: 11/10/23 14:21 Interval history: Patient seen and evaluated at bedside. Feeling a little anxious her Zoloft restarted. She also complains of shortness of breath hence DuoNebs ordered. Going for AICD in a.m.
--- NOTE | 2023-11-10 14:56 | PM.PNCARD ---
Progress Note: A&P Assessment and Plan (1) Cardiac arrest with ventricular fibrillation: Code(s): I46.9 - Cardiac arrest, cause unspecified; I49.01 - Ventricular fibrillation Status: Acute Assessment and Plan: Patient presents with primary VF arrest successfully defibrillated later followed by PEA successfully resuscitated. Recommend ICD implant for secondary prevention. Reviewed indications, risks and benefits with patient and family as she desires to proceed. Will be scheduled for tomorrow morning. (2) NSVT (nonsustained ventricular tachycardia): Code(s): I47.29 - Other ventricular tachycardia Status: Acute Assessment and Plan: Patient had a couple of runs of NSVT a couple days ago, longest run 36 beats. She was asymptomatic. Electrolytes WNL at the time. She was started on amiodarone drip at that time and has not had any recurrent VT. --Continue IV amiodarone for now, changed to p.o. prior to discharge --continue beta-kesha. (3) Acute systolic CHF (congestive heart failure): Code(s): I50.21 - Acute systolic (congestive) heart failure Status: Acute Assessment and Plan: Patient complains of shortness of breath and chest x-rays consistent with significant CHF. --IV furosemide --continue metoprolol, lisinopril, spironolactone --add Jardiance (4) Cardiomyopathy: Code(s): I42.9 - Cardiomyopathy, unspecified Status: Acute Assessment and Plan: Echo revealed dilated LV with severe hypokinesis to akinesis of the mid apical segments with sparing of the bases severe LV dysfunction EF 25% suggesting takotsubo cardiomyopathy, though we do not have a known trigger for it.. Coronary angiography revealed mild nonobstructive CAD and global hypokinesis, consistent with a dilated cardiomyopathy, or perhaps a viral cardiomyopathy since she had an upper respiratory infection in August. Continue medical therapy with lisinopril 5mg daily, Toprol XL 12.5mg daily, and spironolactone 12.5mg daily. Will continue to titrate as blood pressure allows. (5) Non-STEMI (non-ST elevated myocardial infarction): Code(s): I21.4 - Non-ST elevation (NSTEMI) myocardial infarction Status: Acute Assessment and Plan: No evidence of obstructive CAD as explanation, troponin elevation secondary to takotsubo cardiomyopathy status or secondary to her VF arrest. No evidence for acute coronary syndrome. --Continue aspirin 81 mg daily, resume statin therapy with liver function tests have improved/normalized. . (6) CAD (coronary artery disease): Code(s): I25.10 - Atherosclerotic heart disease of [place] coronary artery without angina pectoris Status: Acute Assessment and Plan: Nonobstructive CAD on [facility] noted. Aggressive medical management and risk factor modification counseling performed. --Aspirin 81 mg daily, statin resumed -- Smoking cessation. (7) HLD (hyperlipidemia): Qualifiers: Hyperlipidemia type: mixed hyperlipidemia Qualified Code(s): E78.2 - Mixed hyperlipidemia Code(s): E78.5 - Hyperlipidemia, unspecified Status: Acute Assessment and Plan: Statin resumed, increased to 10mg daily. LDL goal <70 (8) Shock: Code(s): R57.9 - Shock, unspecified Status: Acute Assessment and Plan: Resolved. Levophed discontinued. (9) Acute respiratory failure: Code(s): J96.00 - Acute respiratory failure, unspecified whether with hypoxia or hypercapnia Status: Acute Assessment and Plan: Resolved. (10) Tobacco abuse: Code(s): Z72.0 - Tobacco use Status: Acute Assessment and Plan: Smoking cessation recommended Subjective Date/time seen: 11/10/23 14:56 Interval history: Cardiology follow up for cardiac arrest, cardiomyopathy Patient extubated this morning. Patient remains lethargic but eyes open, awake, appearing weak, somewhat anxious, tearful.
[2023-11-10] MEDS: FUROSEMIDE INJ 40 MG/4 ML VIAL IV PUSH ×2 (15:11→19:48)
[2023-11-10] MEDS: POTASSIUM CHLORIDE 20 MEQ ER TABLET PO (17:05)
[2023-11-11] VITALS (30 sets, daily range): BP systolic 116–144; BP diastolic 65–92; PULSE 71–92; RESP 12–23; TEMP 36.7–37.2; O2SAT 80–100
[2023-11-11] MEDS: IPRATROPIUM 0.5 MG/ALBUTEROL SULFATE 2.5 MG AMPUL.NEB 3 ML INHALATION ×2 (02:18→17:07)
[2023-11-11] MEDS: IBUPROFEN 400 MG TABLET PO ×2 (02:32→21:55)
[2023-11-11 04:17] LABS: Alanine Aminotransferase 80 U/L (6-35); Albumin Level 3.2 g/dL (3.5-5.1); Alkaline Phosphatase 84 U/L (38-126); Anion Gap 3 mmol/L (8-16); Aspartate Amino Transferase 31 U/L (14-36); Bilirubin,Total 0.5 mg/dL (0.2-1.3); Blood Urea Nitrogen 3 mg/dL (7-17); Calcium 7.9 mg/dL (8.4-10.2); Carbon Dioxide 31 mmol/L (22-30); Chloride 102 mmol/L (98-107); Creatine Kinase 123 U/L (30-135); Estimated CRCL calculation 83 ml/min; Estimated Glomerular Filt Rate > 60; Glucose 105 mg/dL (65-110); Magnesium 1.7 mg/dL (1.6-2.3); Phosphorus 3.3 mg/dL (2.5-4.5); Potassium 3.1 mmol/L (3.4-5.0); Sodium 136 mmol/L (137-145)
[2023-11-11] MEDS: AMIODARONE 360 MG/D5W 200 ML 360 MG/200 ML BAG 16.67 MG IV CONT (04:23)
[2023-11-11] MEDS: HYDROcodone/acetaminophen (*CRX) 5-325 MG TABLET 1 TAB PO ×2 (04:24→14:20)
[2023-11-11 04:41] LABS: Mean Corpuscular HGB Conc 32.3 g/dl (32-36); Mean Corpuscular Hemoglobin 29.5 pg (26-34); Mean Corpuscular Volume 91.4 fl (80-100); Mean Platelet Volume 10.2 fl (7.4-10.4); Platelet Count Result 201 k/mm3 (150-375); Red Blood Count 3.39 M/mm3 (4.2-5.4); Red Cell Distribution Width 13.5 % (11.5-14.5); White Blood Count 6.3 K/mm3 (4.5-10.0)
[2023-11-11 05:10] LABS: Carboxyhemoglobin 0.3 % THb (0-2.0); Fractional Inspired Oxygen 28 %; Methemoglobin ABG 0.4 %THb (0-1.5); Oxygen Content ABG 13.2 %vol (16.0-22.0); Oxygen Saturation ABG 88.9 % (95.0-100.0); Oxyhemoglobin 89.1 % THb (90.0-100.0); PCO2 ABG 48.4 mmHg (35.0-45.0); PO2 ABG 53.5 mmHg (80.0-100.0); PO2 FiO2 Ratio Arterial Blood 1.91 %; Reduced Hemoglobin 10.2 %THb (0-5.0); Total Hemoglobin 10.5 g/dL (12.0-18.0); pH ABG 7.452 (7.350-7.450)
[2023-11-11 05:12] LABS: Device NASAL CANNULA; Modified Allen's Test Pass; Site Drawn RIGHT RADIAL
[2023-11-11] MEDS: ONDANSETRON INJ 4 MG/2 ML VIAL IV PUSH (06:59)
[2023-11-11] MEDS: NICOTINE (*PBKC) 7 MG PATCH 1 PATCH TRANSDERM (08:21)
[2023-11-11] MEDS: ROSUVASTATIN 10 MG TABLET PO (08:21)
[2023-11-11] MEDS: PANTOPRAZOLE SODIUM IV 40 MG VIAL IV PUSH (08:21)
[2023-11-11] MEDS: METOPROLOL SUCCINATE EXT REL 12.5 MG TABCR PO (08:22)
[2023-11-11] MEDS: POTASSIUM CHLORIDE 20 MEQ ER TABLET PO (08:22)
[2023-11-11] MEDS: SERTRALINE HCL 50 MG TABLET 100 MG PO (08:22)
[2023-11-11] MEDS: EMPAGLIFLOZIN 10 MG TABLET PO (08:22)
[2023-11-11] MEDS: LIDOCAINE 5% PATCH 2 PATCH TRANSDERM (08:23)
[2023-11-11] MEDS: SPIRONOLACTONE 12.5 MG TABLET PO (08:23)
[2023-11-11] MEDS: KCL 20 MEQ/SW 100 ML 100 ML 50 MEQ IVPB (08:56)
--- NOTE | 2023-11-11 09:59 | ECG_ITS ---
Measurements Intervals [place] Rate: 79 P: 55 MO: 171 QRS: 23 QRSD: 102 T: 29 QT: 402 QTc: 463 Interpretive Statements SINUS RHYTHM NONSPECIFIC ST & T-WAVE ABNORMALITY WARNING: DATA QUALITY MAY AFFECT INTERPRETATION COMPARED TO ECG 11/07/2023 07:44:36 NO SIGNIFICANT CHANGES Electronically Signed On 11-11-2023 15:45:15 [employer] [place] by Malina Miller M.D.
[2023-11-11 10:33] LABS: Prothrombin Time 13.5 Seconds (11.1-14.7)
--- NOTE | 2023-11-11 10:56 | WPDHPUPDATE1 ---
History and Physical Update Update Date/Time: 11/11/23 10:56 63 y.o. female admitted with a primary V-fib arrest and found to have a dilated cardiomyopathy. ICD implant for secondary prevention is recommended. She had some CHF yesterday, better after IV Lasix. She is feeling better, able to lie suppine w/o SOB. History and Physical has been reviewed, including an updated exam of the patient. There are NO changes in the patient's condition. Risks, benefits, and alternatives have been discussed and questions answered. Patient agrees to proceed with procedure.
--- NOTE | 2023-11-11 10:58 | WPDMODSED ---
Moderate Sedation Note-Pt Data Patient Data Diagnosis: Sudden cardiac due to a primary ventricular fibrillation cardiac arrest Present Complaint: 63 y.o. female admitted with a primary ventricular fibrillation cardiac arrest and was successfully resuscitated. She was found to have a dilated cardiomyopathy with an EF of 25%. Cardiac cath showed no obstructive disease.? She had some ventricular tachycardia of about 50 beats since admission, and has been on IV amiodarone. She is at high risk of recurrent sudden cardiac . ICD implant for secondary prevention is recommended.? She has had some CHF, better after IV Lasix.? Hypokalemia has been addressed. She is feeling better, able to lie supine w/o SOB. Allergies Allergy/AdvReac Type Severity Reaction Status Date / Time No Known Allergies Allergy Unknown NONE Verified 06/26/22 10:29 Home Medications Medication Instructions Recorded Confirmed Type sertraline 100 mg tablet (Zoloft) 100 mg PO QAM 02/28/21 11/05/23 History rosuvastatin 5 mg tablet 5 mg PO DAILY 06/26/22 11/05/23 History Current Medications: Active Medications Acetaminophen (Acetaminophen 325 Mg Tablet) 650 mg PO Q4H PRN PRN Reason: Headache, Fever, Pain Last Admin: 11/07/23 11:07 Dose: 650 mg Hydrocodone Bitart/Acetaminophen (Hydrocodone/Acetaminophen (*Crx) 5-325 Mg Tablet) 1 tab PO Q4H PRN PRN Reason: Pain Rated 4-6 Last Admin: 11/11/23 04:24 Dose: 1 tab Albuterol/Ipratropium (Ipratropium 0.5 Mg/Albuterol Sulfate 2.5 Mg Ampul.Neb 3 Ml) 3 ml INHALATION Q6HRT PRN PRN Reason: Shortness Of Breath Last Admin: 11/11/23 02:18 Dose: 3 ml Alteplase, Recombinant (Alteplase 2 Mg Vial (Cathflo)) 2 mg IV PUSH ONCE PRN PRN Reason: Line Occlusion Last Admin: 11/08/23 23:37 Dose: 2 mg Aspirin (Aspirin 325 Mg Tablet) 325 mg FEED TUBE DAILY@0800 SARAI Last Admin: 11/11/23 07:56 Dose: Not Given Dextrose (Dextrose 50% 25 Gm/50 Ml Syringe) 12.5 gm IV PUSH PRN PRN; Protocol PRN Reason: Hypoglycemia Last Admin: 11/07/23 16:02 Dose: 12.5 gm Empagliflozin (Empagliflozin 10 Mg Tablet) 10 mg PO DAILY [facility] Last Admin: 11/11/23 08:22 Dose: 10 mg Enoxaparin Sodium (Enoxaparin 40 Mg/0.4 Ml Syringe) 40 mg SUB-Q DAILY [facility] Last Admin: 11/11/23 07:55 Dose: Not Given Glucagon (Glucagon For Inj 1 Mg Vial) 1 mg IM PRN PRN; Protocol PRN Reason: Hypoglycemia Glucose (Glucose Oral Gel 15 Gm Of Glucse In 37.5 Gm Tube) 15 gm PO PRN PRN; Protocol PRN Reason: Hypoglycemia Dextrose (Dextrose 5% 1,000 Ml) 1,000 mls @ 100 mls/hr IVPB PRN PRN; Protocol PRN Reason: Hypoglycemia Dextrose/Sodium Chloride (Dextrose 5% Sodium Chloride 0.45%) 1,000 mls @ 30 mls/hr IV CONT .Q24H [facility] Last Admin: 11/10/23 22:47 Dose: 75 mls/hr Amiodarone HCl/Dextrose (Nexterone 360 Mg/D5w 200 Ml) 360 mg in 200 mls @ 16.667 mls/hr IV CONT .Q12H [facility] Last Admin: 11/11/23 04:23 Dose: 0.5 mg/min, 16.67 mls/hr Ibuprofen (Ibuprofen 400 Mg Tablet) 400 mg PO Q6H PRN PRN Reason: Pain Rated 6 or Greater Last Admin: 11/11/23 02:32 Dose: 400 mg Lidocaine (Lidocaine 5% Patch) 2 patch TRANSDERM DAILY [facility] Last Admin: 11/11/23 08:23 Dose: 2 patch Lisinopril (Lisinopril 5 Mg Tablet) 5 mg PO QAM [facility] Last Admin: 11/10/23 08:40 Dose: 5 mg Metoprolol Succinate (Metoprolol Succinate Ext Rel 12.5 Mg Tabcr) 12.5 mg PO Q[facility] [place] Last Admin: 11/11/23 08:22 Dose: 12.5 mg Nicotine (Nicotine (*Pbkc) 7 Mg Patch) 1 patch TRANSDERM DAILY [facility] Last Admin: 11/11/23 08:21 Dose: 1 patch Ondansetron HCl (Ondansetron Inj 4 Mg/2 Ml Vial) 4 mg IV PUSH Q4H PRN PRN Reason: Nausea And Vomiting Last Admin: 11/11/23 06:59 Dose: 4 mg Pantoprazole Sodium (Pantoprazole Sodium Iv 40 Mg Vial) 40 mg IV PUSH [facility] Last Admin: 11/11/23 08:21 Dose: 40 mg Rosuvastatin Calcium (Rosuvastatin 10 Mg Tablet) 10 mg PO [facility] Last Admin: 11/11/23 08:21 Dose: 10 mg Sertraline HCl (Sertraline Hcl 50 Mg Tablet) 100 mg PO [facility]
--- NOTE | 2023-11-11 13:22 | PM.OP ---
Procedure Note - Brief Procedure Note - Brief Date of procedure: 11/11/23 VFib cardiac arrest Post-op diagnosis: Other (Status post [employer] ICD) Surgeon: Yenny Quinteros MD Description of procedure: uneventful implant of a single lead [employer] ICD Urine output (mL): 1,300 Complications: No immediate complications Condition: Stable Disposition: ICU
--- NOTE | 2023-11-11 13:29 | W.PM.PROC2 ---
Procedure Note - Detailed Date of Procedure 11/11/23 Pre-op Diagnosis s/p primary ventricular fibrillation arrest Post-op Diagnosis Other (s/p ICD implant) Procedure Performed Conscious sedation Venogram Implantation of a permanent single lead [employer] ICD Surgeon Yenny Quinteros MD Anesthesia Local ( with conscious sedation) Indications 63 y.o. female admitted with a primary ventricular fibrillation cardiac arrest and who was successfully resuscitated.? She was? found to have a dilated cardiomyopathy with an EF of 25%.? Cardiac cath showed no obstructive disease.? She did not have an WI; she had elevated troponins related to the prolonged resuscitation. She had some ventricular tachycardia of about 50 beats (rate 150-160 BPM) since admission, and has been on IV amiodarone.? She is at high risk of recurrent sudden cardiac . ? ICD implant for secondary prevention is recommended.? She has had some CHF, better after IV Lasix.? Hypokalemia has been addressed. Description of Procedure PROCEDURE PERFORMED: Conscious sedation Venogram Placement of a permanent single lead [employer] ICD SITE: Left prepectoral area MEDICATIONS GIVEN IN ELEVATOR OPERATOR SERVICE: vancomycin 1 gram IV piggyback CONSCIOUS SEDATION: Assessment: The patient has no history of anesthesia problems. The patient's oropharynx is clear. The patient was deemed to be a good candidate for conscious sedation. The patient had continuous hemodynamic monitoring during the procedure. Start time: 12:03 p.m. Completion time: 1:16 p.m. Total conscious sedation time: 73 minutes Medications: Versed 4 mg, fentanyl 150 mcg IV push Trained observer: Lupe evans RN Outcome: The patient tolerated the procedure well with no complications. PROCEDURE: After informed consent , the patient was brought to the label folder and the left prepectoral area was prepped and draped in usual fashion . The patient received preop antibiotic with vancomycin and conscious sedation . The left prepectoral area was anesthetized with lidocaine . A venogram was performed showing the course of the left subclavian vein,which was patent. Next a skin incision was made and carried down to the prepectoral fascia. Hemostasis was obtained using electrocautery . The pacer pocket was formed. The left subclavian vein was easily accessed with the micropuncture technique, and a J-tipped guide wire was passed into the inferior vena cava under fluoroscopic guidance. The needle was withdrawn. An 8 [place] safety sheath was passed over the wire, the wire withdrawn, and the right ventricular lead was passed into the inferior vena cava under fluoroscopic guidance The lead was then prolapsed through the tricuspid valve and advanced into the right ventricular apex. When suitable sensing and pacing thresholds were obtained, it was screwed into place. The lead was repositioned once because of a fall in R-wave sensing. No extra cardiac stimulation was obtained using 10 volts. The sheath was withdrawn. The lead was secured to the prepectoral fascia using 2-0 silk over the sleeve. The pocket was cleansed with antibiotic containing solution . The pulse generator was introduced into the operative field, and the lead was secured into the generator . A gentle tug showed the lead was securely fastened. The device was introduced into the pocket. a stay stitch was applied with 2 0 silk suture. The subcutaneous tissues were closed in a double layer fashion with interrupted sutures, using 2-0 Vicryl suture , and the skin was closed in a continuous fashion using 4-0 Vicryl suture in a continuous fashion. The area was cleansed, and an Aquacel dressing was applied . The patient tolerated the procedure well with no complications. MEASURED DATA: Right ventricular lead: R-wave sensing 11.4 mV, impedance 456 Ohms, shock impedance 63 Ohms, threshold 0.4 volts at 0.4 milliseconds PROGRAMMING: VVI 40
--- NOTE | 2023-11-11 14:59 | PM.IMPN ---
Progress Note: A&P Assessment and Plan (1) NSVT (nonsustained ventricular tachycardia): Code(s): I47.29 - Other ventricular tachycardia Status: Acute (2) Musculoskeletal chest pain: Code(s): R07.89 - Other chest pain Status: Acute (3) Electrolyte abnormality: Code(s): E87.8 - Other disorders of electrolyte and fluid balance, not elsewhere classified Status: Acute (4) CAD (coronary artery disease): Code(s): I25.10 - Atherosclerotic heart disease of [place] coronary artery without angina pectoris Status: Acute (5) QT prolongation: Code(s): R94.31 - Abnormal electrocardiogram [ECG] [EKG] Status: Acute (6) Cardiomyopathy: Code(s): I42.9 - Cardiomyopathy, unspecified Status: Acute (7) Tobacco abuse: Code(s): Z72.0 - Tobacco use Status: Acute (8) HLD (hyperlipidemia): Qualifiers: Hyperlipidemia type: mixed hyperlipidemia Qualified Code(s): E78.2 - Mixed hyperlipidemia Code(s): E78.5 - Hyperlipidemia, unspecified Status: Acute (9) Non-STEMI (non-ST elevated myocardial infarction): Code(s): I21.4 - Non-ST elevation (NSTEMI) myocardial infarction Status: Acute (10) Rhabdomyolysis: Code(s): M62.82 - Rhabdomyolysis Status: Acute (11) Cardiac arrest with ventricular fibrillation: Code(s): I46.9 - Cardiac arrest, cause unspecified; I49.01 - Ventricular fibrillation Status: Acute (12) Acute hyponatremia: Code(s): E87.1 - Hypo-osmolality and hyponatremia Status: Acute (13) Acute hypokalemia: Code(s): E87.6 - Hypokalemia Status: Acute (14) Depression: Code(s): F32.9 - Major depressive disorder, single episode, unspecified Status: Acute Plan Patient downgraded from ICU to IMU and signed off from manager [employer] Continuous cardiopulmonary telemonitoring Continue with current cardiac meds Continue with IV amiodarone drip, to be switched to upon discharge Follow-up closely with cardiology Patient had elevated liver enzymes after cardiac arrest which are slowly downtrending Her CPK levels and LFTs are continuing to downtrend Her and CPK and AST are at baseline; ALT is still minimally elevated at 80 GI consult given for evaluation and recommendations regarding resumption of the statin given her significant cardiac history Remains start her on statin upon discharge She has severely depressed EF around 25% Patient is NPO since midnight midnight Patient going to soap slabber for AICD placement today Patient restarted on her Zoloft which is helping with her anxiety Duonebs breathing treatments ordered as needed for shortness of breath Spoke with patient in detail regarding tobacco cessation once she goes home ? Patient seen and examined at bedside during my morning rounds ? Collaborated with patient's nurse at the bedside in detail and addressed all concerns ? Labs, electrolytes, radiology, investigations and test results reviewed ? Consult/Nursing/Ancilliary notes on the chart reviewed and appreciated ? Spoke with patient/ at the bedside and answered all the questions that they had Repeat labs in a.m. Electrolyte replacement as per protocol. Patient will be monitored very closely on the floor. Further recommendations as per the hospital course. Dependence on nicotine from cigarettes: Tobacco abuse counseling: Patient smokes cigarettes on a chronic basis. Strictly advised patient to cut down on or quit smoking. Nicotine patch ordered. ~5 minutes spent on tobacco cessation counseling with the patient. Websites - http://smokefree.gov & http://www.quitnet.com ? Quitlines - 8-004-XNGB-NOW ( ) ? Smokefree Apps - QuitSTART Terra ? Text Messages - SmokefreeTXT ([place] word QUIT to [id number]) Time Spent With Patient Time with patient: 15 - 25 minutes Subjective Date/time seen: 11/11/23 14:59 Interval history: Patient is cristin
[2023-11-11] MEDS: AMIODARONE HCL 200 MG TABLET 400 MG PO (17:19)
[2023-11-11] MEDS: HYDROcodone/acetaminophen (*CRX) 5-325 MG TABLET 2 TAB PO (19:39)
[2023-11-11] MEDS: SACUBITRIL/VALSARTAN 24-26 MG TABLET 1 TAB PO (19:40)
[2023-11-12] VITALS (22 sets, daily range): BP systolic 104–137; BP diastolic 55–74; PULSE 68–90; RESP 12–24; TEMP 36.3–37.1; O2SAT 89–97
[2023-11-12] MEDS: VANCOMYCIN 1,000 MG/NS 250 ML 1,000 MG/250 ML BAG 250 MG IVPB (00:38)
[2023-11-12] MEDS: HYDROcodone/acetaminophen (*CRX) 5-325 MG TABLET 2 TAB PO ×3 (00:39→19:54)
[2023-11-12] MEDS: IPRATROPIUM 0.5 MG/ALBUTEROL SULFATE 2.5 MG AMPUL.NEB 3 ML INHALATION ×2 (01:59→09:18)
[2023-11-12 03:56] LABS: Hematocrit 30.9 % (37.0-47.0); Mean Corpuscular HGB Conc 32.4 g/dl (32-36); Mean Corpuscular Hemoglobin 29.7 pg (26-34); Mean Corpuscular Volume 91.7 fl (80-100); Mean Platelet Volume 9.9 fl (7.4-10.4); Platelet Count Result 228 k/mm3 (150-375); Red Blood Count 3.37 M/mm3 (4.2-5.4); Red Cell Distribution Width 13.5 % (11.5-14.5); White Blood Count 7.9 K/mm3 (4.5-10.0)
[2023-11-12 04:12] LABS: Alanine Aminotransferase 66 U/L (6-35); Albumin Level 3.1 g/dL (3.5-5.1); Alkaline Phosphatase 102 U/L (38-126); Anion Gap 5 mmol/L (8-16); Aspartate Amino Transferase 32 U/L (14-36); Bilirubin,Total 0.6 mg/dL (0.2-1.3); Blood Urea Nitrogen 4 mg/dL (7-17); Calcium 8.3 mg/dL (8.4-10.2); Carbon Dioxide 30 mmol/L (22-30); Chloride 103 mmol/L (98-107); Creatine Kinase 127 U/L (30-135); Estimated CRCL calculation 83 ml/min; Estimated Glomerular Filt Rate > 60; Glucose 120 mg/dL (65-110); Phosphorus 3.3 mg/dL (2.5-4.5); Potassium 3.3 mmol/L (3.4-5.0); Sodium 138 mmol/L (137-145)
[2023-11-12] MEDS: IBUPROFEN 400 MG TABLET PO ×3 (05:18→23:25)
[2023-11-12] MEDS: ONDANSETRON INJ 4 MG/2 ML VIAL IV PUSH ×2 (08:34→12:11)
[2023-11-12] MEDS: ASPIRIN 81 MG CHEWABLE TABLET PO (09:10)
[2023-11-12] MEDS: HYDROcodone/acetaminophen (*CRX) 5-325 MG TABLET 1 TAB PO (09:10)
[2023-11-12] MEDS: AMIODARONE HCL 200 MG TABLET 400 MG PO ×2 (09:10→17:19)
[2023-11-12] MEDS: ROSUVASTATIN 10 MG TABLET PO (09:11)
[2023-11-12] MEDS: METOPROLOL SUCCINATE EXT REL 25 MG TABCR PO (09:11)
[2023-11-12] MEDS: ENOXAPARIN 40 MG/0.4 ML SYRINGE SUB-Q ×2 (09:14→09:15)
[2023-11-12] MEDS: LIDOCAINE 5% PATCH 2 PATCH TRANSDERM (09:14)
[2023-11-12] MEDS: SACUBITRIL/VALSARTAN 24-26 MG TABLET 1 TAB PO ×2 (09:16→20:01)
[2023-11-12] MEDS: SPIRONOLACTONE 25 MG TABLET PO (09:16)
[2023-11-12] MEDS: EMPAGLIFLOZIN 10 MG TABLET PO (09:16)
[2023-11-12] MEDS: PANTOPRAZOLE SOD SESQUIHYDRATE 20 MG TAB PO (09:16)
[2023-11-12] MEDS: SERTRALINE HCL 50 MG TABLET 100 MG PO (09:16)
[2023-11-12] MEDS: FUROSEMIDE INJ 40 MG/4 ML VIAL 20 MG IV PUSH (09:16)
[2023-11-12] MEDS: POTASSIUM CHLORIDE 20 MEQ ER TABLET PO (09:47)
--- NOTE | 2023-11-12 10:46 | PCNWS ---
Weekly nutritional screen. Patient is tolerating current diet with adequate intake. No weight loss reported. No nutritional needs at this time.
--- NOTE | 2023-11-12 11:10 | PM.PNCARD ---
Progress Note: A&P Assessment and Plan (1) Cardiac arrest with ventricular fibrillation: Code(s): I46.9 - Cardiac arrest, cause unspecified; I49.01 - Ventricular fibrillation Status: Acute Assessment and Plan: Patient presents with primary VF arrest successfully defibrillated later followed by PEA successfully resuscitated. s/p ICD insertion for secondary prevention. (2) NSVT (nonsustained ventricular tachycardia): Code(s): I47.29 - Other ventricular tachycardia Status: Acute Assessment and Plan: Patient had a couple of runs of NSVT a couple days ago, longest run 36 beats. She was asymptomatic. Electrolytes WNL at the time. She was started on amiodarone drip at that time and has not had any recurrent VT. --Continue p.o. amiodarone 400mg b.i.d. Gradually decrease dose --continue beta-kesha. (3) Acute systolic CHF (congestive heart failure): Code(s): I50.21 - Acute systolic (congestive) heart failure Status: Acute Assessment and Plan: Patient complains of shortness of breath and chest x-rays consistent with significant CHF. --IV furosemide --continue metoprolol, lisinopril, spironolactone --add Jardiance (4) Cardiomyopathy: Code(s): I42.9 - Cardiomyopathy, unspecified Status: Acute Assessment and Plan: Echo revealed dilated LV with severe hypokinesis to akinesis of the mid apical segments with sparing of the bases severe LV dysfunction EF 25% suggesting [place]ubo cardiomyopathy, though we do not have a known trigger for it.. Coronary angiography revealed mild nonobstructive CAD and global hypokinesis, consistent with a dilated cardiomyopathy, or perhaps a viral cardiomyopathy since she had an upper respiratory infection in August. Continue medical therapy with lisinopril 5mg daily, Toprol XL 12.5mg daily, and spironolactone 12.5mg daily. Will continue to titrate as blood pressure allows. (5) Non-STEMI (non-ST elevated myocardial infarction): Code(s): I21.4 - Non-ST elevation (NSTEMI) myocardial infarction Status: Acute Assessment and Plan: No evidence of obstructive CAD as explanation, troponin elevation secondary to tak[place]ubo cardiomyopathy status or secondary to her VF arrest. No evidence for acute coronary syndrome. --Continue aspirin 81 mg daily, statin resumed. (6) CAD (coronary artery disease): Code(s): I25.10 - Atherosclerotic heart disease of [place] coronary artery without angina pectoris Status: Acute Assessment and Plan: Nonobstructive CAD on [facility] noted. Aggressive medical management and risk factor modification counseling performed. --Aspirin 81 mg daily, statin resumed -- Smoking cessation. (7) HLD (hyperlipidemia): Qualifiers: Hyperlipidemia type: mixed hyperlipidemia Qualified Code(s): E78.2 - Mixed hyperlipidemia Code(s): E78.5 - Hyperlipidemia, unspecified Status: Acute Assessment and Plan: Statin resumed, increased to 10mg daily. LDL goal <70 (8) Shock: Code(s): R57.9 - Shock, unspecified Status: Acute Assessment and Plan: Resolved. (9) Acute respiratory failure: Code(s): J96.00 - Acute respiratory failure, unspecified whether with hypoxia or hypercapnia Status: Acute Assessment and Plan: Resolved. (10) Tobacco abuse: Code(s): Z72.0 - Tobacco use Status: Acute Assessment and Plan: Smoking cessation recommended Subjective Date/time seen: 11/12/23 11:10 Interval history: Cardiology follow up for cardiac arrest, cardiomyopathy Patient extubated this morning. Patient remains lethargic but eyes open, awake, appearing weak, somewhat anxious, tearful. Family at bedside including . Very lengthy discussion held with the patient, her and sister bedside. All questions answered to their satisfaction. Date of service 11/08/2023: Patient is awake, alert, and orie
[2023-11-12] MEDS: POTASSIUM CHLORIDE 20 MEQ ER TABLET 40 MEQ PO (17:21)
--- NOTE | 2023-11-12 18:32 | PM.IMPN ---
Progress Note: A&P Assessment and Plan (1) NSVT (nonsustained ventricular tachycardia): Code(s): I47.29 - Other ventricular tachycardia Status: Acute (2) Musculoskeletal chest pain: Code(s): R07.89 - Other chest pain Status: Acute (3) Electrolyte abnormality: Code(s): E87.8 - Other disorders of electrolyte and fluid balance, not elsewhere classified Status: Acute (4) CAD (coronary artery disease): Code(s): I25.10 - Atherosclerotic heart disease of [place] coronary artery without angina pectoris Status: Acute (5) QT prolongation: Code(s): R94.31 - Abnormal electrocardiogram [ECG] [EKG] Status: Acute (6) Cardiomyopathy: Code(s): I42.9 - Cardiomyopathy, unspecified Status: Acute (7) Tobacco abuse: Code(s): Z72.0 - Tobacco use Status: Acute (8) HLD (hyperlipidemia): Qualifiers: Hyperlipidemia type: mixed hyperlipidemia Qualified Code(s): E78.2 - Mixed hyperlipidemia Code(s): E78.5 - Hyperlipidemia, unspecified Status: Acute (9) Non-STEMI (non-ST elevated myocardial infarction): Code(s): I21.4 - Non-ST elevation (NSTEMI) myocardial infarction Status: Acute (10) Rhabdomyolysis: Code(s): M62.82 - Rhabdomyolysis Status: Acute (11) Cardiac arrest with ventricular fibrillation: Code(s): I46.9 - Cardiac arrest, cause unspecified; I49.01 - Ventricular fibrillation Status: Acute (12) Acute hyponatremia: Code(s): E87.1 - Hypo-osmolality and hyponatremia Status: Acute (13) Acute hypokalemia: Code(s): E87.6 - Hypokalemia Status: Acute (14) Depression: Code(s): F32.9 - Major depressive disorder, single episode, unspecified Status: Acute Plan Patient downgraded from ICU to IMU and signed off from product development ecologist Service Continuous cardiopulmonary telemonitoring Continue with current cardiac meds Continue with IV amiodarone drip, to be switched to upon discharge Follow-up closely with cardiology Patient had elevated liver enzymes after cardiac arrest which are slowly downtrending Her CPK levels and LFTs are continuing to downtrend Her and CPK and AST are at baseline; ALT is still minimally elevated at 80 GI consult given for evaluation and recommendations regarding resumption of the statin given her significant cardiac history We should be able to restart her on statin upon discharge She has severely depressed EF around 25% 11/11/2023: Patient underwent AICD placement which she tolerated well She has a small focus of pneumothorax at the AICD insertion site, which is stable as reported by Radiology Cardiology notified about small focus of pneumothorax Follow-up closely with serial x-rays ... May involve Pulmonary if pneumothorax worse Patient restarted on her Zoloft which is helping with her anxiety Duonebs breathing treatments ordered as needed for shortness of breath Patient still has the borderline low hypokalemia IV potassium supplementation switched to oral as patient has difficulty tolerating causes burning in her veins Spoke with patient in detail regarding tobacco cessation once she goes home ? Patient seen and examined at bedside during my morning rounds ? Collaborated with patient's nurse at the bedside in detail and addressed all concerns ? Labs, electrolytes, radiology, investigations and test results reviewed ? Consult/Nursing/Ancilliary notes on the chart reviewed and appreciated ? Spoke with patient/ at the bedside and answered all the questions that they had Repeat labs in a.m. Electrolyte replacement as per protocol. Patient will be monitored very closely on the floor. Further recommendations as per the hospital course. Dependence on nicotine from cigarettes: Tobacco abuse counseling: Patient smokes cigarettes on a chronic basis. Strictly advised patient to cut down on or quit smoking. Nicotine patch ordered. ~5 minutes spent on
[2023-11-13] VITALS (20 sets, daily range): BP systolic 120–149; BP diastolic 66–80; PULSE 69–89; RESP 16–20; TEMP 36.7–36.8; O2SAT 92–99
[2023-11-13] MEDS: HYDROcodone/acetaminophen (*CRX) 5-325 MG TABLET 2 TAB PO ×2 (03:57→21:41)
[2023-11-13 04:07] LABS: Potassium 3.9 mmol/L (3.4-5.0)
[2023-11-13] MEDS: IBUPROFEN 400 MG TABLET PO ×3 (05:58→23:33)
[2023-11-13] MEDS: POTASSIUM CHLORIDE 20 MEQ ER TABLET 40 MEQ PO ×2 (08:53→16:10)
[2023-11-13] MEDS: PANTOPRAZOLE SOD SESQUIHYDRATE 20 MG TAB PO (08:54)
[2023-11-13] MEDS: ASPIRIN 81 MG CHEWABLE TABLET PO (08:54)
[2023-11-13] MEDS: AMIODARONE HCL 200 MG TABLET 400 MG PO (08:54)
[2023-11-13] MEDS: EMPAGLIFLOZIN 10 MG TABLET PO (08:54)
[2023-11-13] MEDS: SPIRONOLACTONE 25 MG TABLET PO (08:54)
[2023-11-13] MEDS: ROSUVASTATIN 10 MG TABLET PO (08:54)
[2023-11-13] MEDS: SACUBITRIL/VALSARTAN 24-26 MG TABLET 1 TAB PO ×2 (08:54→21:44)
[2023-11-13] MEDS: SERTRALINE HCL 50 MG TABLET 100 MG PO (08:54)
[2023-11-13] MEDS: ENOXAPARIN 40 MG/0.4 ML SYRINGE SUB-Q (08:57)
[2023-11-13] MEDS: METOPROLOL SUCCINATE EXT REL 25 MG TABCR PO (08:58)
[2023-11-13] MEDS: LIDOCAINE 5% PATCH 2 PATCH TRANSDERM (08:58)
[2023-11-13] MEDS: HYDROcodone/acetaminophen (*CRX) 5-325 MG TABLET 1 TAB PO ×2 (10:11→16:10)
--- NOTE | 2023-11-13 10:22 | PM.PNCARD ---
Progress Note: A&P Assessment and Plan (1) Cardiac arrest with ventricular fibrillation: Code(s): I46.9 - Cardiac arrest, cause unspecified; I49.01 - Ventricular fibrillation Status: Acute Assessment and Plan: Patient presents with primary VF arrest successfully defibrillated later followed by PEA successfully resuscitated. s/p ICD insertion for secondary prevention. (2) NSVT (nonsustained ventricular tachycardia): Code(s): I47.29 - Other ventricular tachycardia Status: Acute Assessment and Plan: Patient had a couple of runs of NSVT a couple days ago, longest run 36 beats. She was asymptomatic. Electrolytes WNL at the time. She was started on amiodarone drip at that time and has not had any recurrent VT. --will reduce p.o. amiodarone to 200 mg p.o. b.i.d. --continue beta-kesha. (3) Acute systolic CHF (congestive heart failure): Code(s): I50.21 - Acute systolic (congestive) heart failure Status: Acute Assessment and Plan: Patient complains of shortness of breath and chest x-rays consistent with significant CHF. --furosemide 20 mg IV x1 --continue metoprolol, lisinopril, spironolactone charting (4) Cardiomyopathy: Code(s): I42.9 - Cardiomyopathy, unspecified Status: Acute Assessment and Plan: Echo revealed dilated LV with severe hypokinesis to akinesis of the mid apical segments with sparing of the bases severe LV dysfunction EF 25% suggesting takotsubo cardiomyopathy, though we do not have a known trigger for it.. Coronary angiography revealed mild nonobstructive CAD and global hypokinesis, consistent with a dilated cardiomyopathy, or perhaps a viral cardiomyopathy since she had an upper respiratory infection in August. Continue medical therapy with lisinopril 5mg daily, Toprol XL 12.5mg daily, and spironolactone 12.5mg daily. Will continue to titrate as blood pressure allows. (5) Non-STEMI (non-ST elevated myocardial infarction): Code(s): I21.4 - Non-ST elevation (NSTEMI) myocardial infarction Status: Acute Assessment and Plan: No evidence of obstructive CAD as explanation, troponin elevation secondary to takotsubo cardiomyopathy status or secondary to her VF arrest. No evidence for acute coronary syndrome. --Continue aspirin 81 mg daily, resume statin therapy with liver function tests have improved/normalized. . (6) CAD (coronary artery disease): Code(s): I25.10 - Atherosclerotic heart disease of [place] coronary artery without angina pectoris Status: Acute Assessment and Plan: Nonobstructive CAD on [facility] noted. Aggressive medical management and risk factor modification counseling performed. --Aspirin 81 mg daily, statin resumed -- Smoking cessation. (7) HLD (hyperlipidemia): Qualifiers: Hyperlipidemia type: mixed hyperlipidemia Qualified Code(s): E78.2 - Mixed hyperlipidemia Code(s): E78.5 - Hyperlipidemia, unspecified Status: Acute Assessment and Plan: Statin resumed, increased to 10mg daily. LDL goal <70 (8) Shock: Code(s): R57.9 - Shock, unspecified Status: Acute Assessment and Plan: Resolved. Levophed discontinued. (9) Acute respiratory failure: Code(s): J96.00 - Acute respiratory failure, unspecified whether with hypoxia or hypercapnia Status: Acute Assessment and Plan: Resolved. (10) Tobacco abuse: Code(s): Z72.0 - Tobacco use Status: Acute Assessment and Plan: Smoking cessation recommended Subjective Date/time seen: 11/13/23 10:22 Interval history: Cardiology follow up for cardiac arrest, cardiomyopathy Patient extubated this morning. Patient remains lethargic but eyes open, awake, appearing weak, somewhat anxious, tearful. Family at bedside including . Very lengthy discussion held with the patient, her and sister bedside. All questions answered to their satisf
[2023-11-13] MEDS: FUROSEMIDE INJ 40 MG/4 ML VIAL 20 MG IV PUSH (10:53)
[2023-11-13] MEDS: ONDANSETRON INJ 4 MG/2 ML VIAL IV PUSH ×2 (10:59→17:13)
--- NOTE | 2023-11-13 12:25 | PC.NURSE ---
This patient, Elizabeth Mari, was received from [ICU-3 ] on 11/13/23 at 1136. Patient/family oriented to unit policies and routines
[2023-11-13] MEDS: AMIODARONE HCL 200 MG TABLET PO (16:10)
--- NOTE | 2023-11-13 16:29 | PM.CNGS ---
Assessment and Plan Assessment and plan (1) Pneumothorax on left: Code(s): J93.9 - Pneumothorax, unspecified Status: Acute Assessment and Plan: Tiny left apical pneumothorax, asymptomatic. First discovered yesterday on chest x-ray. Not seen on chest x-ray the day of the procedure. Patient had extensive CPR of at least 25 minutes and was intubated until today. Whether this occurred from CPR the procedure or the mechanical ventilation is unknown and not really important. Fortunately the pneumothorax is very small, asymptomatic and is at least stable if not smaller on today's film compared to yesterday's. I doubt any procedures such as a chest tube will be necessary. I explained this to the patient. We will follow her chest x-ray tomorrow and possibly 1 more day. If it remains stable I will sign off thank you History of Present Illness Consult details Consult date: 11/13/23 Reason for consult: other (Pneumothorax) Requesting physician: Guerline Christensen APN-C Narrative: Patient is a 63-year-old woman who 8 days ago, had a VFib V-tach arrest at home. Paramedics came to her house and started CPR. She also had pulseless electrical activity or PE a but eventually was converted to a sustainable rhythm with a blood pressure. She was intubated and a cardiac echo showed a very low cardiac output. Her CPR was done for at least 25 minutes before arrival to the emergency room. Two days ago she had a single lead internal cardiac defibrillator placed per the left subclavian access. Chest x-ray following the procedure was negative other than some infiltrates but 2 days after the procedure there was a tiny left apical pneumothorax. I was asked to see the patient regarding management of this pneumothorax. Patient has had some chronic shortness of breath as her LV function is diminished. She had a left heart catheterization which did not show any occlusive coronary disease. She was extubated today and is comfortable at this time with no complaints of chest pain or shortness of breath lying in bed. Review of Systems Review of Systems: All systems reviewed & are unremarkable except as noted in HPI and below (HPI) [facility] Past Medical History Medical History Acquired cervical spine ankylosis ACDF @ C5-C6 Depression Fracture of distal radius and ulna HLD (hyperlipidemia) Smoker Surgical History Surgical History History of appendectomy History of History of hernia repair History of hysterectomy History of parathyroidectomy Social History Social History Smoking packs per day: 1 Smoking cigarettes per day: 20.0 Years smoked: 40 Smoking pack-years: 40.00 Smoking status: Current some day smoker Tobacco type: cigarettes Second hand tobacco smoke exposure: No Alcohol intake: current Drinks per week: 4 Substance use: never Substance use type: does not use Living arrangements: with family Spiritual care concerns: No Meds Home Medications and Allergies Home Medications Medication Instructions Recorded Confirmed Type sertraline 100 mg tablet (Zoloft) 100 mg PO QAM 02/28/21 11/05/23 History rosuvastatin 5 mg tablet 5 mg PO DAILY 06/26/22 11/05/23 History Allergies Allergy/AdvReac Type Severity Reaction Status Date / Time No Known Allergies Allergy Unknown NONE Verified 06/26/22 10:29 Vital Signs Vital Signs - 24 hr 11/12/23 17:19 11/12/23 17:00 11/12/23 18:00 Temperature 37.1 C Pulse Rate 79 78 79 Respiratory Rate 22 H Blood Pressure 137/74 Pulse Oximetry 94 Oxygen Delivery Oxygen Flow Rate 11/12/23 20:00 11/12/23 20:00 11/12/23 20:00 Temperature 36.3 C L Pulse Rate 74 72 Respiratory Rate 18 Blood Pressure 132/71 Pulse Oximetry 95 94 Oxygen Delivery Nasal Cannula Oxygen Flow Rate 1 11/12/23 22:00 11/12/23 23:33 11/12/23
--- NOTE | 2023-11-13 16:44 | PM.IMPN ---
Progress Note: A&P Assessment and Plan (1) NSVT (nonsustained ventricular tachycardia): Code(s): I47.29 - Other ventricular tachycardia Status: Acute (2) Musculoskeletal chest pain: Code(s): R07.89 - Other chest pain Status: Acute (3) Electrolyte abnormality: Code(s): E87.8 - Other disorders of electrolyte and fluid balance, not elsewhere classified Status: Acute (4) CAD (coronary artery disease): Code(s): I25.10 - Atherosclerotic heart disease of [place] coronary artery without angina pectoris Status: Acute (5) QT prolongation: Code(s): R94.31 - Abnormal electrocardiogram [ECG] [EKG] Status: Acute (6) Cardiomyopathy: Code(s): I42.9 - Cardiomyopathy, unspecified Status: Acute (7) Tobacco abuse: Code(s): Z72.0 - Tobacco use Status: Acute (8) HLD (hyperlipidemia): Qualifiers: Hyperlipidemia type: mixed hyperlipidemia Qualified Code(s): E78.2 - Mixed hyperlipidemia Code(s): E78.5 - Hyperlipidemia, unspecified Status: Acute (9) Non-STEMI (non-ST elevated myocardial infarction): Code(s): I21.4 - Non-ST elevation (NSTEMI) myocardial infarction Status: Acute (10) Rhabdomyolysis: Code(s): M62.82 - Rhabdomyolysis Status: Acute (11) Cardiac arrest with ventricular fibrillation: Code(s): I46.9 - Cardiac arrest, cause unspecified; I49.01 - Ventricular fibrillation Status: Acute (12) Acute hyponatremia: Code(s): E87.1 - Hypo-osmolality and hyponatremia Status: Acute (13) Acute hypokalemia: Code(s): E87.6 - Hypokalemia Status: Acute (14) Depression: Code(s): F32.9 - Major depressive disorder, single episode, unspecified Status: Acute Plan Patient downgraded from ICU to IMU and signed off from marking room supervisor Service Continuous cardiopulmonary telemonitoring Continue with current cardiac meds Continue with IV amiodarone drip, to be switched to upon discharge Follow-up closely with cardiology Patient had elevated liver enzymes after cardiac arrest which are slowly downtrending Her CPK levels and LFTs were elevated after cardiac arrest, now down trended to normal range Patient restarted on rosuvastatin 5 mg daily today She has severely depressed EF around 25% 11/11/2023: Patient underwent AICD placement which she tolerated well She has a small focus of pneumothorax at the AICD insertion site, which is stable as reported by Radiology Cardiology notified about small focus of pneumothorax Follow-up closely with serial x-rays which is showing progressively decreasing size... May involve Pulmonary if pneumothorax worse Patient restarted on her Zoloft which is helping with her anxiety Duonebs breathing treatments ordered as needed for shortness of breath Patient still has the borderline low hypokalemia IV potassium supplementation switched to oral as patient has difficulty tolerating causes burning in her veins Spoke with patient in detail regarding tobacco cessation once she goes home May DC patient home next 1 or 2 days if she remains stable and cleared by Cardiology ? Patient seen and examined at bedside during my morning rounds ? Collaborated with patient's nurse at the bedside in detail and addressed all concerns ? Labs, electrolytes, radiology, investigations and test results reviewed ? Consult/Nursing/Ancilliary notes on the chart reviewed and appreciated ? Spoke with patient/ at the bedside and answered all the questions that they had Repeat labs in a.m. Electrolyte replacement as per protocol. Patient will be monitored very closely on the floor. Further recommendations as per the hospital course. Dependence on nicotine from cigarettes: Tobacco abuse counseling: Patient smokes cigarettes on a chronic basis. Strictly advised patient to cut down on or quit smoking. Nicotine patch ordered. ~5 minutes spent on tobacco cessation counseling with lino
[2023-11-13 18:11] LABS: Alanine Aminotransferase 45 U/L (6-35); Albumin Level 3.4 g/dL (3.5-5.1); Alkaline Phosphatase 95 U/L (38-126); Anion Gap 6 mmol/L (8-16); Aspartate Amino Transferase 25 U/L (14-36); Bilirubin,Total 0.5 mg/dL (0.2-1.3); Blood Urea Nitrogen 7 mg/dL (7-17); Calcium 8.7 mg/dL (8.4-10.2); Carbon Dioxide 30 mmol/L (22-30); Chloride 98 mmol/L (98-107); Estimated CRCL calculation 70 ml/min; Estimated Glomerular Filt Rate > 60; Glucose 97 mg/dL (65-110); Potassium 4.6 mmol/L (3.4-5.0); Sodium 134 mmol/L (137-145)
[2023-11-14] VITALS (23 sets, daily range): BP systolic 118–145; BP diastolic 61–78; PULSE 66–92; RESP 12–20; TEMP 36.2–37.2; O2SAT 88–96
[2023-11-14 04:45] LABS: Alanine Aminotransferase 41 U/L (6-35); Albumin Level 3.4 g/dL (3.5-5.1); Alkaline Phosphatase 94 U/L (38-126); Anion Gap 2 mmol/L (8-16); Aspartate Amino Transferase 26 U/L (14-36); Bilirubin,Total 0.5 mg/dL (0.2-1.3); Blood Urea Nitrogen 7 mg/dL (7-17); Calcium 8.6 mg/dL (8.4-10.2); Carbon Dioxide 33 mmol/L (22-30); Chloride 100 mmol/L (98-107); Estimated CRCL calculation 70 ml/min; Estimated Glomerular Filt Rate > 60; Glucose 91 mg/dL (65-110); Potassium 4.2 mmol/L (3.4-5.0); Sodium 135 mmol/L (137-145)
[2023-11-14] MEDS: HYDROcodone/acetaminophen (*CRX) 5-325 MG TABLET 2 TAB PO ×3 (06:37→20:09)
[2023-11-14] MEDS: EMPAGLIFLOZIN 10 MG TABLET PO (09:21)
[2023-11-14] MEDS: SACUBITRIL/VALSARTAN 24-26 MG TABLET 1 TAB PO ×2 (09:21→20:09)
[2023-11-14] MEDS: ASPIRIN 81 MG CHEWABLE TABLET PO (09:21)
[2023-11-14] MEDS: AMIODARONE HCL 200 MG TABLET PO ×2 (09:21→16:52)
[2023-11-14] MEDS: ROSUVASTATIN 5 MG TABLET PO (09:21)
[2023-11-14] MEDS: SERTRALINE HCL 50 MG TABLET 100 MG PO (09:21)
[2023-11-14] MEDS: ROSUVASTATIN 10 MG TABLET PO (09:22)
[2023-11-14] MEDS: SPIRONOLACTONE 25 MG TABLET PO (09:22)
[2023-11-14] MEDS: METOPROLOL SUCCINATE EXT REL 25 MG TABCR PO (09:22)
[2023-11-14] MEDS: PANTOPRAZOLE SOD SESQUIHYDRATE 20 MG TAB PO (09:22)
[2023-11-14] MEDS: POTASSIUM CHLORIDE 20 MEQ ER TABLET 40 MEQ PO (09:22)
[2023-11-14] MEDS: LIDOCAINE 5% PATCH 2 PATCH TRANSDERM (09:23)
--- NOTE | 2023-11-14 09:46 | PC.NURSE ---
Notified Dr. Vera of CXR, stated he would look at imaging and address it.
--- NOTE | 2023-11-14 10:01 | PM.PNCARD ---
Progress Note: A&P Assessment and Plan (1) Cardiac arrest with ventricular fibrillation: Code(s): I46.9 - Cardiac arrest, cause unspecified; I49.01 - Ventricular fibrillation Status: Acute Assessment and Plan: Patient presents with primary VF arrest successfully defibrillated later followed by PEA successfully resuscitated. s/p ICD insertion for secondary prevention. (2) NSVT (nonsustained ventricular tachycardia): Code(s): I47.29 - Other ventricular tachycardia Status: Acute Assessment and Plan: Patient had a couple of runs of NSVT a couple days ago, longest run 36 beats. She was asymptomatic. Electrolytes WNL at the time. She was started on amiodarone drip at that time and has not had any recurrent VT. --continue lower-dose amiodarone --continue beta-kesha. (3) Acute systolic CHF (congestive heart failure): Code(s): I50.21 - Acute systolic (congestive) heart failure Status: Acute Assessment and Plan: Patient complains of shortness of breath and chest x-rays consistent with significant CHF. --she has some worsening airspace disease effusions. Will give 40 mg IV furosemide x1. --continue metoprolol, lisinopril, spironolactone charting (4) Cardiomyopathy: Code(s): I42.9 - Cardiomyopathy, unspecified Status: Acute Assessment and Plan: Echo revealed dilated LV with severe hypokinesis to akinesis of the mid apical segments with sparing of the bases severe LV dysfunction EF 25% suggesting tak[place]ubo cardiomyopathy, though we do not have a known trigger for it.. Coronary angiography revealed mild nonobstructive CAD and global hypokinesis, consistent with a dilated cardiomyopathy, or perhaps a viral cardiomyopathy since she had an upper respiratory infection in August. Continue medical therapy with lisinopril 5mg daily, Toprol XL 12.5mg daily, and spironolactone 12.5mg daily. Will continue to titrate as blood pressure allows. (5) Non-STEMI (non-ST elevated myocardial infarction): Code(s): I21.4 - Non-ST elevation (NSTEMI) myocardial infarction Status: Acute Assessment and Plan: No evidence of obstructive CAD as explanation, troponin elevation secondary to [place] cardiomyopathy status or secondary to her VF arrest. No evidence for acute coronary syndrome. --Continue aspirin 81 mg daily, resume statin therapy with liver function tests have improved/normalized. . (6) CAD (coronary artery disease): Code(s): I25.10 - Atherosclerotic heart disease of [place] coronary artery without angina pectoris Status: Acute Assessment and Plan: Nonobstructive CAD on [facility] noted. Aggressive medical management and risk factor modification counseling performed. --Aspirin 81 mg daily, statin resumed -- Smoking cessation. (7) HLD (hyperlipidemia): Qualifiers: Hyperlipidemia type: mixed hyperlipidemia Qualified Code(s): E78.2 - Mixed hyperlipidemia Code(s): E78.5 - Hyperlipidemia, unspecified Status: Acute Assessment and Plan: Statin resumed, increased to 10mg daily. LDL goal <70 (8) Shock: Code(s): R57.9 - Shock, unspecified Status: Acute Assessment and Plan: Resolved. Levophed discontinued. (9) Acute respiratory failure: Code(s): J96.00 - Acute respiratory failure, unspecified whether with hypoxia or hypercapnia Status: Acute Assessment and Plan: Resolved. (10) Tobacco abuse: Code(s): Z72.0 - Tobacco use Status: Acute Assessment and Plan: Smoking cessation recommended (11) Pneumothorax on left: Code(s): J93.9 - Pneumothorax, unspecified Status: Acute Assessment and Plan: Pneumothorax is read as being slightly larger. Surgery involved if need be. Continue observation for now Subjective Date/time seen: 11/14/23 10:01 Interval history: Cardiology follow up for cardiac arrest, cardiomyopathy
[2023-11-14] MEDS: FUROSEMIDE INJ 40 MG/4 ML VIAL IV PUSH (11:56)
--- NOTE | 2023-11-14 15:23 | PM.PNGS ---
Progress Note: A&P Assessment and Plan (1) Pneumothorax on left: Code(s): J93.9 - Pneumothorax, unspecified Status: Acute Assessment and Plan: Asymptomatic but slightly larger on chest x-ray. Will get repeat chest x-ray this afternoon and also 1 in the morning. If continues to enlarge, will need to place chest tube even if asymptomatic. Discussed this with patient and her . Will have chest tube placement equipments brought to her room in case it should be needed urgently. Still hoping that this will resolve without chest tube placement. Discussed with Dr. Diallo. Subjective Subjective Date/Time Seen: 11/14/23 15:23 Patient reports: no new complaints, feels better, shortness of breath (Only slightly, not significant) and afebrile Review of Systems Review of Systems: All systems reviewed & are unremarkable except as noted in HPI and below (HPI) Exam Const: General: comfortable, alert, awake, well groomed and thin Orientation/consciousness: patient oriented x3 and No confusion Chest: Chest palpation & inspection: no crepitus, tenderness (At ICD site only), Pacemaker present and No rash Resp: Effort & Inspection: normal respiratory effort, no cough, not labored and not tachypneic Auscultation: clear to auscultation bilaterally, no crackles, no rales, no rhonchi and no wheezes Objective Data Vital Signs Vital Signs: Vital Signs - 24 hr 11/13/23 16:10 11/13/23 16:00 11/13/23 16:00 Temperature Pulse Rate 89 74 Respiratory Rate Blood Pressure Pulse Oximetry 97 Oxygen Delivery Nasal Cannula Oxygen Flow Rate 1 Fraction of Inspired Oxygen 11/13/23 16:00 11/13/23 18:00 11/13/23 19:24 Temperature 36.7 C 36.7 C Pulse Rate 80 77 80 Respiratory Rate 16 16 Blood Pressure 131/66 131/66 Pulse Oximetry 94 94 Oxygen Delivery Oxygen Flow Rate Fraction of Inspired Oxygen 11/14/23 00:54 11/13/23 22:00 11/13/23 20:00 Temperature 36.3 C L Pulse Rate 73 87 77 Respiratory Rate 18 Blood Pressure 119/68 Pulse Oximetry 95 Oxygen Delivery Oxygen Flow Rate Fraction of Inspired Oxygen 11/14/23 00:00 11/13/23 21:40 11/14/23 00:15 Temperature Pulse Rate 73 Respiratory Rate Blood Pressure Pulse Oximetry 99 96 Oxygen Delivery Nasal Cannula Nasal Cannula Oxygen Flow Rate 1 1 Fraction of Inspired Oxygen 11/14/23 02:00 11/14/23 04:00 11/14/23 04:15 Temperature Pulse Rate 66 74 Respiratory Rate Blood Pressure Pulse Oximetry 95 Oxygen Delivery Nasal Cannula Oxygen Flow Rate 1 Fraction of Inspired Oxygen 11/13/23 22:00 11/14/23 05:53 11/14/23 06:00 Temperature 36.2 C L Pulse Rate 92 74 Respiratory Rate 18 Blood Pressure 118/64 Pulse Oximetry 95 95 Oxygen Delivery Nasal Cannula Oxygen Flow Rate 1 Fraction of Inspired Oxygen 11/14/23 08:00 11/14/23 08:22 11/14/23 08:49 Temperature 37.2 C Pulse Rate 76 Respiratory Rate 16 Blood Pressure 145/78 H Pulse Oximetry 94 92 Oxygen Delivery Nasal Cannula Nasal Cannula Oxygen Flow Rate 1 1 Fraction of Inspired Oxygen 11/14/23 09:21 11/14/23 09:22 11/14/23 12:00 Temperature 36.7 C Pulse Rate 75 75 77 Respiratory Rate 16 Blood Pressure 141/70 H Pulse Oximetry 93 Oxygen Delivery Oxygen Flow Rate Fraction of Inspired Oxygen 11/14/23 08:00 11/14/23 10:00 11/14/23 12:00 Temperature Pulse Rate 76 81 75 Respiratory Rate Blood Pressure Pulse Oximetry Oxygen Delivery Oxygen Flow Rate Fraction of Inspired Oxygen 11/14/23 08:00 11/14/23 12:00 11/14/23 14:00 Temperature Pulse Rate 74 Respiratory Rate Blood Pressure Pulse Oximetry 94 93 Oxygen Delivery Nasal Cannula Nasal Cannula Oxygen Flow Rate 1 1 Fraction of Inspired Oxygen Intake/Output Intake/Output: Intake & Output 11/11/23 11/12/23 11/13/23 11/14/23 23:59 23:59 23:59 23:59 Miriam
--- NOTE | 2023-11-14 17:20 | PM.IMPN ---
Progress Note: A&P Assessment and Plan (1) NSVT (nonsustained ventricular tachycardia): Code(s): I47.29 - Other ventricular tachycardia Status: Acute (2) Musculoskeletal chest pain: Code(s): R07.89 - Other chest pain Status: Acute (3) Electrolyte abnormality: Code(s): E87.8 - Other disorders of electrolyte and fluid balance, not elsewhere classified Status: Acute (4) CAD (coronary artery disease): Code(s): I25.10 - Atherosclerotic heart disease of [place] coronary artery without angina pectoris Status: Acute (5) QT prolongation: Code(s): R94.31 - Abnormal electrocardiogram [ECG] [EKG] Status: Acute (6) Cardiomyopathy: Code(s): I42.9 - Cardiomyopathy, unspecified Status: Acute (7) Tobacco abuse: Code(s): Z72.0 - Tobacco use Status: Acute (8) HLD (hyperlipidemia): Qualifiers: Hyperlipidemia type: mixed hyperlipidemia Qualified Code(s): E78.2 - Mixed hyperlipidemia Code(s): E78.5 - Hyperlipidemia, unspecified Status: Acute (9) Non-STEMI (non-ST elevated myocardial infarction): Code(s): I21.4 - Non-ST elevation (NSTEMI) myocardial infarction Status: Acute (10) Rhabdomyolysis: Code(s): M62.82 - Rhabdomyolysis Status: Acute (11) Cardiac arrest with ventricular fibrillation: Code(s): I46.9 - Cardiac arrest, cause unspecified; I49.01 - Ventricular fibrillation Status: Acute (12) Acute hyponatremia: Code(s): E87.1 - Hypo-osmolality and hyponatremia Status: Acute (13) Acute hypokalemia: Code(s): E87.6 - Hypokalemia Status: Acute (14) Depression: Code(s): F32.9 - Major depressive disorder, single episode, unspecified Status: Acute Plan Patient downgraded from ICU to IMU and signed off from [facility] Continuous cardiopulmonary telemonitoring Continue with current cardiac meds Continue with IV amiodarone drip, to be switched to upon discharge Follow-up closely with cardiology Patient had elevated liver enzymes after cardiac arrest which are slowly downtrending Her CPK levels and LFTs were elevated after cardiac arrest, now down trended to normal range Patient restarted on rosuvastatin 5 mg daily today She has severely depressed EF around 25% 11/11/2023: Patient underwent AICD placement which she tolerated well She has a small focus of pneumothorax at the AICD insertion site, which is stable as reported by Radiology Cardiology notified about small focus of pneumothorax Follow-up closely with serial x-rays which is showing progressively decreasing size... May involve Pulmonary if pneumothorax worse 11/14/2023: she had a mild enlargement in the pneumothorax. Surgery notified who have arranged for chest tube placement equipment at the bedside in case it is needed urgently. Still conservatively managed. Patient requiring 1 L oxygen via nasal cannula. Patient restarted on her Zoloft which is helping with her anxiety Duonebs breathing treatments ordered as needed for shortness of breath Patient still has the borderline low hypokalemia IV potassium supplementation switched to oral as patient has difficulty tolerating causes burning in her veins Spoke with patient in detail regarding tobacco cessation once she goes home May DC patient home next few days if she remains stable, pneumothorax is resolved and she is cleared by Cardiology and General Surgery ? Patient seen and examined at bedside during my morning rounds ? Collaborated with patient's nurse at the bedside in detail and addressed all concerns ? Labs, electrolytes, radiology, investigations and test results reviewed ? Consult/Nursing/Ancilliary notes on the chart reviewed and appreciated ? Spoke with patient/ at the bedside and answered all the questions that they had Repeat labs in a.m. Electrolyte replacement as per protocol. Patient will be monitored very closely on the floor.
[2023-11-14 20:30] LABS: Glucose Point of Care 122 mg/dl (65-105)
[2023-11-15] VITALS (21 sets, daily range): BP systolic 105–139; BP diastolic 58–77; PULSE 68–82; RESP 16–20; TEMP 36.2–36.9; O2SAT 91–98
[2023-11-15] MEDS: HYDROcodone/acetaminophen (*CRX) 5-325 MG TABLET 2 TAB PO ×2 (04:10→20:34)
[2023-11-15 04:38] LABS: Basophils Absolute Auto 0.1 K/mm3 (0.0-0.1); Basophils Percent Auto 0.7 % (0.2-1.2); Eosinophils Absolute Auto 0.3 K/mm3 (0-0.3); Eosinophils Percent Auto 3.2 % (0-4.4); Hematocrit 35.8 % (37.0-47.0); Hemoglobin 11.5 g/dL (12.0-15.0); Immature Granulocyte Absolute 0.04 K/mm3 (0.00-0.031); Immature Granulocyte Percent A 0.5 % (0-0.5); Lymphocytes Absolute Auto 1.71 K/mm3 (0.9-3.2); Lymphocytes Percent Auto 20.6 % (18.3-44.2); Mean Corpuscular HGB Conc 32.1 g/dl (32-36); Mean Corpuscular Hemoglobin 29.7 pg (26-34); Mean Corpuscular Volume 92.5 fl (80-100); Mean Platelet Volume 9.5 fl (7.4-10.4); Monocytes Absolute Auto 0.9 K/mm3 (0.1-0.6); Neutrophils Absolute Auto 5.3 K/mm3 (1.3-6.7); Platelet Count Result 348 k/mm3 (150-375); Red Blood Count 3.87 M/mm3 (4.2-5.4); Red Cell Distribution Width 13.5 % (11.5-14.5); White Blood Count 8.3 K/mm3 (4.5-10.0)
[2023-11-15 04:53] LABS: Anion Gap 5 mmol/L (8-16); Blood Urea Nitrogen 9 mg/dL (7-17); Calcium 8.8 mg/dL (8.4-10.2); Carbon Dioxide 33 mmol/L (22-30); Chloride 96 mmol/L (98-107); Estimated CRCL calculation 70 ml/min; Estimated Glomerular Filt Rate > 60; Glucose 102 mg/dL (65-110); Potassium 3.8 mmol/L (3.4-5.0); Sodium 134 mmol/L (137-145)
[2023-11-15] MEDS: LIDOCAINE 5% PATCH 2 PATCH TRANSDERM (09:21)
--- NOTE | 2023-11-15 09:22 | PM.PNCARD ---
Progress Note: A&P Assessment and Plan (1) Cardiac arrest with ventricular fibrillation: Code(s): I46.9 - Cardiac arrest, cause unspecified; I49.01 - Ventricular fibrillation Status: Acute Assessment and Plan: Patient presents with primary VF arrest successfully defibrillated later followed by PEA successfully resuscitated. s/p ICD insertion for secondary prevention. (2) NSVT (nonsustained ventricular tachycardia): Code(s): I47.29 - Other ventricular tachycardia Status: Acute Assessment and Plan: Patient had a couple of runs of NSVT a couple days ago, longest run 36 beats. She was asymptomatic. Electrolytes WNL at the time. She was started on amiodarone drip at that time and has not had any recurrent VT. --continue lower-dose amiodarone --continue beta-kesha. (3) Acute systolic CHF (congestive heart failure): Code(s): I50.21 - Acute systolic (congestive) heart failure Status: Acute Assessment and Plan: Patient complains of shortness of breath and chest x-rays consistent with significant CHF. --still has small pleural effusions on CXR today. Will start furosemide 40mg p.o. daily. --continue metoprolol, lisinopril, spironolactone, jardiance (4) Cardiomyopathy: Code(s): I42.9 - Cardiomyopathy, unspecified Status: Acute Assessment and Plan: Echo revealed dilated LV with severe hypokinesis to akinesis of the mid apical segments with sparing of the bases severe LV dysfunction EF 25% suggesting [place] cardiomyopathy, though we do not have a known trigger for it.. Coronary angiography revealed mild nonobstructive CAD and global hypokinesis, consistent with a dilated cardiomyopathy, or perhaps a viral cardiomyopathy since she had an upper respiratory infection in August. Continue medical therapy with lisinopril 5mg daily, Toprol XL 12.5mg daily, and spironolactone 12.5mg daily. Will continue to titrate as blood pressure allows. (5) Non-STEMI (non-ST elevated myocardial infarction): Code(s): I21.4 - Non-ST elevation (NSTEMI) myocardial infarction Status: Acute Assessment and Plan: No evidence of obstructive CAD as explanation, troponin elevation secondary to [place]ubo cardiomyopathy status or secondary to her VF arrest. No evidence for acute coronary syndrome. --Continue aspirin 81 mg daily, rosuvastatin 10mg daily. (6) CAD (coronary artery disease): Code(s): I25.10 - Atherosclerotic heart disease of [place] coronary artery without angina pectoris Status: Acute Assessment and Plan: Nonobstructive CAD on [facility] noted. Aggressive medical management and risk factor modification counseling performed. --Aspirin 81 mg daily, statin resumed -- Smoking cessation. (7) HLD (hyperlipidemia): Qualifiers: Hyperlipidemia type: mixed hyperlipidemia Qualified Code(s): E78.2 - Mixed hyperlipidemia Code(s): E78.5 - Hyperlipidemia, unspecified Status: Acute Assessment and Plan: Statin resumed, increased to 10mg daily. LDL goal <70 (8) Shock: Code(s): R57.9 - Shock, unspecified Status: Acute Assessment and Plan: Resolved. Levophed discontinued. (9) Acute respiratory failure: Code(s): J96.00 - Acute respiratory failure, unspecified whether with hypoxia or hypercapnia Status: Acute Assessment and Plan: Resolved. (10) Tobacco abuse: Code(s): Z72.0 - Tobacco use Status: Acute Assessment and Plan: Smoking cessation recommended (11) Pneumothorax on left: Code(s): J93.9 - Pneumothorax, unspecified Status: Acute Assessment and Plan: Pneumothorax is read as being slightly larger. Surgery involved if need be. Continue observation for now Subjective Date/time seen: 11/15/23 09:22 Interval history: Cardiology follow up for cardiac arrest, cardiomyopathy Patient extubated this morning. Patient remain
[2023-11-15] MEDS: ROSUVASTATIN 5 MG TABLET PO (09:23)
[2023-11-15] MEDS: AMIODARONE HCL 200 MG TABLET PO ×2 (09:24→18:45)
[2023-11-15] MEDS: ASPIRIN 81 MG CHEWABLE TABLET PO (09:27)
[2023-11-15] MEDS: EMPAGLIFLOZIN 10 MG TABLET PO (09:27)
[2023-11-15] MEDS: SERTRALINE HCL 50 MG TABLET 100 MG PO (09:27)
[2023-11-15] MEDS: METOPROLOL SUCCINATE EXT REL 25 MG TABCR PO (09:29)
[2023-11-15] MEDS: MUPIROCIN 2% OINT 22 GM TUBE 1 APPLIC TOPICAL ×3 (09:30→18:45)
[2023-11-15] MEDS: ENOXAPARIN 40 MG/0.4 ML SYRINGE SUB-Q (09:30)
[2023-11-15] MEDS: PANTOPRAZOLE SOD SESQUIHYDRATE 20 MG TAB PO (09:31)
[2023-11-15] MEDS: POTASSIUM CHLORIDE 20 MEQ ER TABLET 40 MEQ PO (09:31)
[2023-11-15] MEDS: SACUBITRIL/VALSARTAN 24-26 MG TABLET 1 TAB PO ×2 (09:32→20:34)
[2023-11-15] MEDS: ROSUVASTATIN 10 MG TABLET PO (09:32)
[2023-11-15] MEDS: SPIRONOLACTONE 25 MG TABLET PO (09:33)
[2023-11-15] MEDS: IBUPROFEN 400 MG TABLET PO (09:39)
--- NOTE | 2023-11-15 10:47 | PM.IMPN ---
Progress Note: A&P Assessment and Plan (1) NSVT (nonsustained ventricular tachycardia): Code(s): I47.29 - Other ventricular tachycardia Status: Acute Assessment and Plan: Cardiology following continue amiodarone (2) Musculoskeletal chest pain: Code(s): R07.89 - Other chest pain Status: Acute Assessment and Plan: Pain control (3) Electrolyte abnormality: Code(s): E87.8 - Other disorders of electrolyte and fluid balance, not elsewhere classified Status: Acute Assessment and Plan: Hyponatremia hypo c hypokalemia mproved (4) CAD (coronary artery disease): Code(s): I25.10 - Atherosclerotic heart disease of [place] coronary artery without angina pectoris Status: Acute Assessment and Plan: Nonobstructive coronary artery disease on cardiac catheterization most likely patient has dilated cardiomyopathy most likely related to viral illness maximum medical treatment (5) QT prolongation: Code(s): R94.31 - Abnormal electrocardiogram [ECG] [EKG] Status: Acute Assessment and Plan: Cardiology following (6) Cardiomyopathy: Code(s): I42.9 - Cardiomyopathy, unspecified Status: Acute Assessment and Plan: Dilated cardiomyopathy associated with acute systolic heart failure required AICD placement complicated with pneumothorax Maximum medical therapy Diuresis as tolerated by blood pressure (7) Tobacco abuse: Code(s): Z72.0 - Tobacco use Status: Acute Assessment and Plan: Counseling (8) HLD (hyperlipidemia): Qualifiers: Hyperlipidemia type: mixed hyperlipidemia Qualified Code(s): E78.2 - Mixed hyperlipidemia Code(s): E78.5 - Hyperlipidemia, unspecified Status: Acute Assessment and Plan: Statin (9) Non-STEMI (non-ST elevated myocardial infarction): Code(s): I21.4 - Non-ST elevation (NSTEMI) myocardial infarction Status: Acute Assessment and Plan: Probably related to demand ischemia continue to monitor cardiology following (10) Rhabdomyolysis: Code(s): M62.82 - Rhabdomyolysis Status: Acute Assessment and Plan: Probably related to dilated cardiomyopathy resolved (11) Cardiac arrest with ventricular fibrillation: Code(s): I46.9 - Cardiac arrest, cause unspecified; I49.01 - Ventricular fibrillation Status: Acute Assessment and Plan: Associated with cardiogenic shock status post CPR cardioversion cardiac catheterization cardiology following continue amiodarone (12) Acute hyponatremia: Code(s): E87.1 - Hypo-osmolality and hyponatremia Status: Acute Assessment and Plan: Improved continue to monitor (13) Acute hypokalemia: Code(s): E87.6 - Hypokalemia Status: Acute Assessment and Plan: Replaced (14) Depression: Code(s): F32.9 - Major depressive disorder, single episode, unspecified Status: Acute Assessment and Plan: Continue home treatment (15) Pneumothorax on left: Code(s): J93.9 - Pneumothorax, unspecified Status: Acute Assessment and Plan: surgery was consulted conservative treated Time Spent With Patient Time with patient: 15 - 25 minutes Subjective Date/time seen: 11/15/23 10:47 Interval history: suad is a 63-year-old female with past medical history significant tobacco abuse, hyperlipidemia otherwise reasonably healthy who is brought in by EMS after sudden episode of nonresponsiveness and reported VF arrest.? This is witnessed by her who was sitting next to her who summoned EMS immediately with reported arrival and initiation of CPR and less than 5 minutes. her EKG shows severe ischemic changes with very deep T inversions.? Troponin peaked at 1.6.? Requiring low-dose Levophed. Cardiac catheterization was done shows nonobstructive coronary arteries ejection fraction was 20% dilated cardiomyopathy most likely rohan
--- NOTE | 2023-11-15 11:18 | PM.PNGS ---
Progress Note: A&P Assessment and Plan (1) Pneumothorax on left: Code(s): J93.9 - Pneumothorax, unspecified Status: Acute Assessment and Plan: Continues to be asymptomatic. Chest x-ray today showed an unchanged stable small left pneumothorax. Will continue to monitor and plan to repeat a chest x-ray tomorrow morning. Plan I have discussed the patient's case and plan of care with Dr. Vera. Subjective Subjective Date/Time Seen: 11/15/23 11:18 Interval history: This is a 68 year old woman who had a VFib Vtach arrest at home. She was brought into the ER by EMS and eventually had ROSC. She was intubated and in the ICU. She also had a cardiac catheterization due to concern for ischemic pathology with CAD. EF significantly decreased. She had an internal cardiac defibrillator placed per left subclavian access. Two days after the procedure she was found to have a tiny apical left pneumothorax on chest x-ray. We were consulted and this has been monitored with serial chest x-rays. This did enlarge some to a small pneumothorax, but has since stabilized without further intervention.Chart reviewed. She is seen in IMU. Chest x-ray this morning showed a stable unchanged small left pneumothorax. Patient denies any new complaints overnight. She has had very minimal SOB with exertion that has been unchanged over the past few days. Exam Const: General: comfortable and no acute distress Orientation/consciousness: patient oriented x3 Chest: Chest palpation & inspection: no crepitus Other: Left anterior chest dressing dry and intact. Lidoderm patches on upper back. Resp: Effort & Inspection: normal respiratory effort Auscultation: diminished lung sounds (very minimally diminished L upper lobe ) Objective Data Vital Signs Vital Signs: Vital Signs - 24 hr 11/14/23 12:00 11/14/23 12:00 11/14/23 12:00 Temperature 98.0 F Pulse Rate 77 75 Respiratory Rate 16 Blood Pressure 141/70 H Pulse Oximetry 93 93 Oxygen Delivery Nasal Cannula Oxygen Flow Rate 1 11/14/23 14:00 11/14/23 15:54 11/14/23 16:52 Temperature 98.2 F Pulse Rate 74 77 83 Respiratory Rate 12 Blood Pressure 120/66 Pulse Oximetry 93 Oxygen Delivery Oxygen Flow Rate 11/14/23 16:00 11/14/23 18:00 11/14/23 16:00 Temperature Pulse Rate 76 82 Respiratory Rate Blood Pressure Pulse Oximetry 90 Oxygen Delivery Room Air Oxygen Flow Rate 11/14/23 20:27 11/14/23 20:00 11/14/23 22:00 Temperature 97.1 F L Pulse Rate 81 Respiratory Rate 20 Blood Pressure 137/74 Pulse Oximetry 94 88 L 93 Oxygen Delivery Nasal Cannula Nasal Cannula Oxygen Flow Rate 1 1 11/14/23 20:00 11/14/23 22:00 11/14/23 23:53 Temperature 97.1 F L Pulse Rate 85 79 81 Respiratory Rate 20 Blood Pressure 125/61 Pulse Oximetry 94 Oxygen Delivery Oxygen Flow Rate 11/15/23 00:00 11/15/23 00:00 11/15/23 02:00 Temperature Pulse Rate 78 73 Respiratory Rate Blood Pressure Pulse Oximetry 93 Oxygen Delivery Nasal Cannula Oxygen Flow Rate 1 11/15/23 04:00 11/15/23 05:38 11/15/23 06:21 Temperature 97.1 F L Pulse Rate 74 Respiratory Rate 20 Blood Pressure 139/74 Pulse Oximetry 94 93 95 Oxygen Delivery Nasal Cannula Room Air Oxygen Flow Rate 1 11/15/23 04:00 11/15/23 06:00 11/15/23 06:29 Temperature Pulse Rate 77 76 Respiratory Rate Blood Pressure Pulse Oximetry 94 Oxygen Delivery Nasal Cannula Oxygen Flow Rate 1 11/15/23 08:00 11/15/23 09:24 11/15/23 09:29 Temperature 98.2 F Pulse Rate 78 81 82 Respiratory Rate 16 Blood Pressure 121/66 Pulse Oximetry 95 Oxygen Delivery Oxygen Flow Rate Intake/Output Intake/Output: Intake & Output 11/12/23 11/13/23 11/14/23 11/15/23 23:59 23:59 23:59 23:59 Intake Total 7618 581 1919 940 Output Total 1999 2350 0 800 Balance -800 -1430 1260 140 Meds/Results Medications: Activ
[2023-11-15] MEDS: FUROSEMIDE 40 MG TABLET PO (13:04)
[2023-11-15] MEDS: HYDROcodone/acetaminophen (*CRX) 5-325 MG TABLET 1 TAB PO (14:49)
[2023-11-16] VITALS (14 sets, daily range): BP systolic 104–108; BP diastolic 60–71; PULSE 74–92; RESP 18–19; TEMP 36.5–36.8; O2SAT 91–96
[2023-11-16] MEDS: HYDROcodone/acetaminophen (*CRX) 5-325 MG TABLET 2 TAB PO (02:54)
[2023-11-16 05:28] LABS: Basophils Absolute Auto 0.1 K/mm3 (0.0-0.1); Basophils Percent Auto 0.6 % (0.2-1.2); Eosinophils Absolute Auto 0.3 K/mm3 (0-0.3); Hematocrit 34.4 % (37.0-47.0); Hemoglobin 10.9 g/dL (12.0-15.0); Immature Granulocyte Absolute 0.08 K/mm3 (0.00-0.031); Immature Granulocyte Percent A 0.9 % (0-0.5); Lymphocytes Absolute Auto 1.47 K/mm3 (0.9-3.2); Lymphocytes Percent Auto 17.1 % (18.3-44.2); Mean Corpuscular HGB Conc 31.7 g/dl (32-36); Mean Corpuscular Hemoglobin 29.5 pg (26-34); Mean Platelet Volume 9.3 fl (7.4-10.4); Monocytes Absolute Auto 0.7 K/mm3 (0.1-0.6); Monocytes Percent Auto 8.4 % (2.6-8.5); Platelet Count Result 334 k/mm3 (150-375); Red Cell Distribution Width 13.3 % (11.5-14.5); White Blood Count 8.6 K/mm3 (4.5-10.0)
[2023-11-16 06:43] LABS: Anion Gap 4 mmol/L (8-16); Blood Urea Nitrogen 10 mg/dL (7-17); Carbon Dioxide 34 mmol/L (22-30); Chloride 97 mmol/L (98-107); Estimated CRCL calculation 58 ml/min; Estimated Glomerular Filt Rate > 60; Glucose 128 mg/dL (65-110); Potassium 3.8 mmol/L (3.4-5.0); Sodium 135 mmol/L (137-145)
[2023-11-16] MEDS: EMPAGLIFLOZIN 10 MG TABLET PO (10:36)
[2023-11-16] MEDS: SACUBITRIL/VALSARTAN 24-26 MG TABLET 1 TAB PO (10:36)
[2023-11-16] MEDS: SERTRALINE HCL 50 MG TABLET 100 MG PO (10:36)
[2023-11-16] MEDS: METOPROLOL SUCCINATE EXT REL 25 MG TABCR PO (10:37)
[2023-11-16] MEDS: HYDROcodone/acetaminophen (*CRX) 5-325 MG TABLET 1 TAB PO ×2 (10:37→16:00)
[2023-11-16] MEDS: FUROSEMIDE 40 MG TABLET PO (10:37)
--- NOTE | 2023-11-16 10:37 | PCPTNOTE ---
Attempted to see patient for PT, however patient and RN reported patient having a lot of pain and asked PT to come back later. RN getting patient pain medication.
[2023-11-16] MEDS: POTASSIUM CHLORIDE 20 MEQ ER TABLET 40 MEQ PO (10:38)
[2023-11-16] MEDS: PANTOPRAZOLE SOD SESQUIHYDRATE 20 MG TAB PO (10:38)
[2023-11-16] MEDS: ROSUVASTATIN 10 MG TABLET PO (10:39)
[2023-11-16] MEDS: ROSUVASTATIN 5 MG TABLET PO (10:39)
[2023-11-16] MEDS: LIDOCAINE 5% PATCH 2 PATCH TRANSDERM (10:40)
[2023-11-16] MEDS: SPIRONOLACTONE 25 MG TABLET PO (10:40)
[2023-11-16] MEDS: ENOXAPARIN 40 MG/0.4 ML SYRINGE SUB-Q (10:40)
--- NOTE | 2023-11-16 10:43 | PM.IMPN ---
Progress Note: A&P Assessment and Plan (1) NSVT (nonsustained ventricular tachycardia): Code(s): I47.29 - Other ventricular tachycardia Status: Acute Assessment and Plan: Cardiology following continue amiodarone (2) Musculoskeletal chest pain: Code(s): R07.89 - Other chest pain Status: Acute Assessment and Plan: Pain control (3) Electrolyte abnormality: Code(s): E87.8 - Other disorders of electrolyte and fluid balance, not elsewhere classified Status: Acute Assessment and Plan: Hyponatremia hypo c hypokalemia mproved (4) CAD (coronary artery disease): Code(s): I25.10 - Atherosclerotic heart disease of [place] coronary artery without angina pectoris Status: Acute Assessment and Plan: Nonobstructive coronary artery disease on cardiac catheterization most likely patient has dilated cardiomyopathy most likely related to viral illness maximum medical treatment (5) QT prolongation: Code(s): R94.31 - Abnormal electrocardiogram [ECG] [EKG] Status: Acute Assessment and Plan: Cardiology following (6) Cardiomyopathy: Code(s): I42.9 - Cardiomyopathy, unspecified Status: Acute Assessment and Plan: Dilated cardiomyopathy associated with acute systolic heart failure required AICD placement complicated with pneumothorax Maximum medical therapy Diuresis as tolerated by blood pressure (7) Tobacco abuse: Code(s): Z72.0 - Tobacco use Status: Acute Assessment and Plan: Counseling (8) HLD (hyperlipidemia): Qualifiers: Hyperlipidemia type: mixed hyperlipidemia Qualified Code(s): E78.2 - Mixed hyperlipidemia Code(s): E78.5 - Hyperlipidemia, unspecified Status: Acute Assessment and Plan: Statin (9) Non-STEMI (non-ST elevated myocardial infarction): Code(s): I21.4 - Non-ST elevation (NSTEMI) myocardial infarction Status: Acute Assessment and Plan: Probably related to demand ischemia continue to monitor cardiology following (10) Rhabdomyolysis: Code(s): M62.82 - Rhabdomyolysis Status: Acute Assessment and Plan: Probably related to dilated cardiomyopathy resolved (11) Cardiac arrest with ventricular fibrillation: Code(s): I46.9 - Cardiac arrest, cause unspecified; I49.01 - Ventricular fibrillation Status: Acute Assessment and Plan: Associated with cardiogenic shock status post CPR cardioversion cardiac catheterization cardiology following continue amiodarone (12) Acute hyponatremia: Code(s): E87.1 - Hypo-osmolality and hyponatremia Status: Acute Assessment and Plan: Improved continue to monitor (13) Acute hypokalemia: Code(s): E87.6 - Hypokalemia Status: Acute Assessment and Plan: Replaced (14) Depression: Code(s): F32.9 - Major depressive disorder, single episode, unspecified Status: Acute Assessment and Plan: Continue home treatment (15) Pneumothorax on left: Code(s): J93.9 - Pneumothorax, unspecified Status: Acute Assessment and Plan: surgery was consulted conservative treated Plan Anticipate discharge in 1-2 days if no plan for chest tube placement Subjective Date/time seen: 11/16/23 10:43 Interval history: suad is a 63-year-old female with past medical history significant tobacco abuse, hyperlipidemia otherwise reasonably healthy who is brought in by EMS after sudden episode of nonresponsiveness and reported VF arrest.? This is witnessed by her who was sitting next to her who summoned EMS immediately with reported arrival and initiation of CPR and less than 5 minutes. her EKG shows severe ischemic changes with very deep T inversions.? Troponin peaked at 1.6.? Requiring low-dose Levophed. Cardiac catheterization was done shows nonobstructive coronary arteries ejection fraction was 20% dilated cardiomyopathy
[2023-11-16] MEDS: MUPIROCIN 2% OINT 22 GM TUBE 1 APPLIC TOPICAL ×2 (10:50→12:58)
[2023-11-16] MEDS: ASPIRIN 81 MG CHEWABLE TABLET PO (10:50)
[2023-11-16] MEDS: AMIODARONE HCL 200 MG TABLET PO (10:50)
--- NOTE | 2023-11-16 13:35 | PM.PNGS ---
Progress Note: A&P Assessment and Plan (1) Pneumothorax on left: Code(s): J93.9 - Pneumothorax, unspecified Status: Acute Assessment and Plan: Pneumothorax stable and improving. Very unlikely patient would develop any kind of recurrence. I discussed this with Cardiology. Okay for patient to be discharged today from my perspective. Will sign off. Subjective Subjective Date/Time Seen: 11/16/23 13:35 Patient reports: no new complaints and feels better Interval history: No new chest pain or shortness of breath. Feels better today than even yesterday Review of Systems Review of Systems: All systems reviewed & are unremarkable except as noted in HPI and below (HPI) Exam Const: General: comfortable, alert, awake, well groomed and thin Orientation/consciousness: patient oriented x3 and No confusion Resp: Effort & Inspection: normal respiratory effort Auscultation: clear to auscultation bilaterally, no rales and no wheezes Objective Data Vital Signs Vital Signs: Vital Signs - 24 hr 11/15/23 14:44 11/15/23 16:00 11/15/23 18:45 Temperature 36.9 C Pulse Rate 75 72 68 Respiratory Rate 18 Blood Pressure 105/58 L Pulse Oximetry 95 98 Oxygen Delivery Nasal Cannula Oxygen Flow Rate 1 Fraction of Inspired Oxygen 24 11/15/23 20:28 11/15/23 16:00 11/15/23 16:00 Temperature 36.6 C Pulse Rate 75 78 Respiratory Rate 20 Blood Pressure 111/62 Pulse Oximetry 91 91 Oxygen Delivery Nasal Cannula Oxygen Flow Rate 1 Fraction of Inspired Oxygen 11/15/23 20:00 11/15/23 20:00 11/15/23 22:00 Temperature Pulse Rate 75 70 Respiratory Rate Blood Pressure Pulse Oximetry 92 Oxygen Delivery Nasal Cannula Oxygen Flow Rate 1 Fraction of Inspired Oxygen 11/15/23 23:38 11/16/23 00:00 11/16/23 00:00 Temperature 36.6 C Pulse Rate 71 77 Respiratory Rate 19 Blood Pressure 133/71 Pulse Oximetry 92 92 Oxygen Delivery Nasal Cannula Oxygen Flow Rate 1 Fraction of Inspired Oxygen 11/16/23 02:00 11/16/23 04:00 11/16/23 04:00 Temperature Pulse Rate 75 77 Respiratory Rate Blood Pressure Pulse Oximetry 91 Oxygen Delivery Nasal Cannula Oxygen Flow Rate 1 Fraction of Inspired Oxygen 11/16/23 05:39 11/16/23 06:00 11/16/23 08:00 Temperature 36.5 C 36.8 C Pulse Rate 75 74 83 Respiratory Rate 19 18 Blood Pressure 104/71 108/60 Pulse Oximetry 92 92 Oxygen Delivery Oxygen Flow Rate Fraction of Inspired Oxygen 11/16/23 10:37 11/16/23 10:50 11/16/23 12:00 Temperature 36.8 C Pulse Rate 81 84 88 Respiratory Rate 18 Blood Pressure 106/66 Pulse Oximetry 96 Oxygen Delivery Oxygen Flow Rate Fraction of Inspired Oxygen Intake/Output Intake/Output: Intake & Output 11/13/23 11/14/23 11/15/23 11/16/23 23:59 23:59 23:59 23:59 Intake Total 920 1260 1420 1480 Output Total 2350 0 800 Balance -1430 7207 897 5978 Meds/Results Medications: Active Medications Generic Name Dose Route Start Last Admin Trade Name Freq PRN Reason Stop Dose Admin Acetaminophen 650 mg 11/07/23 10:07 11/07/23 11:07 Acetaminophen 325 Mg Tablet PO 650 mg Q4H PRN Administration Headache, Fever, Pain Hydrocodone Bitart/Acetaminophen 1 tab 11/11/23 13:23 11/16/23 10:37 Hydrocodone/Acetaminophen (*Crx) 5-325 Mg Tablet PO 1 tab Q6H PRN Administration Pain Rated 1-3 Hydrocodone Bitart/Acetaminophen 2 tab 11/11/23 13:23 11/16/23 02:54 Hydrocodone/Acetaminophen (*Crx) 5-325 Mg Tablet PO 2 tab Q6H PRN Administration Pain Rated 4-6 Albuterol/Ipratropium 3 ml 11/10/23 14:04 11/12/23 09:18 Ipratropium 0.5 Mg/Albuterol Sulfate 2.5 Mg Ampul.Neb 3 Ml INHALATION 3 ml Q6HRT PRN Administration Shortness Of Breath Alteplase, Recombinant 2 mg 11/08/23 20:57 11/08/23 23:37 Alteplase 2 Mg Vial (Cathflo) IV PUSH 2 mg ONCE PRN Administration Line Oc
--- NOTE | 2023-11-16 13:46 | PM.PNCARD ---
Progress Note: A&P Assessment and Plan (1) Cardiac arrest with ventricular fibrillation: Code(s): I46.9 - Cardiac arrest, cause unspecified; I49.01 - Ventricular fibrillation Status: Acute Assessment and Plan: Patient presents with primary VF arrest successfully defibrillated later followed by PEA successfully resuscitated. s/p ICD insertion for secondary prevention. (2) NSVT (nonsustained ventricular tachycardia): Code(s): I47.29 - Other ventricular tachycardia Status: Acute Assessment and Plan: Patient had a couple of runs of NSVT a couple days ago, longest run 36 beats. She was asymptomatic. Electrolytes WNL at the time. She was started on amiodarone drip at that time and has not had any recurrent VT. --continue lower-dose amiodarone. Decrease to 200mg daily at discharge --continue beta-kesha. (3) Acute systolic CHF (congestive heart failure): Code(s): I50.21 - Acute systolic (congestive) heart failure Status: Acute Assessment and Plan: Patient complains of shortness of breath and chest x-rays consistent with significant CHF. --Continue furosemide 40mg daily --Continue metoprolol, lisinopril, spironolactone, jardiance (4) Cardiomyopathy: Code(s): I42.9 - Cardiomyopathy, unspecified Status: Acute Assessment and Plan: Echo revealed dilated LV with severe hypokinesis to akinesis of the mid apical segments with sparing of the bases severe LV dysfunction EF 25% suggesting takotsubo cardiomyopathy, though we do not have a known trigger for it.. Coronary angiography revealed mild nonobstructive CAD and global hypokinesis, consistent with a dilated cardiomyopathy, or perhaps a viral cardiomyopathy since she had an upper respiratory infection in August. Continue medical therapy with Entresto 24-26 daily, Toprol XL 25mg daily, and spironolactone 25mg daily. Will continue to titrate as blood pressure allows. (5) Non-STEMI (non-ST elevated myocardial infarction): Code(s): I21.4 - Non-ST elevation (NSTEMI) myocardial infarction Status: Acute Assessment and Plan: No evidence of obstructive CAD as explanation, troponin elevation secondary to takotsubo cardiomyopathy status or secondary to her VF arrest. No evidence for acute coronary syndrome. --Continue aspirin 81 mg daily, rosuvastatin 10mg daily. (6) CAD (coronary artery disease): Code(s): I25.10 - Atherosclerotic heart disease of [place] coronary artery without angina pectoris Status: Acute Assessment and Plan: Nonobstructive CAD on [facility] noted. Aggressive medical management and risk factor modification counseling performed. --Aspirin 81 mg daily, statin resumed -- Smoking cessation. (7) HLD (hyperlipidemia): Qualifiers: Hyperlipidemia type: mixed hyperlipidemia Qualified Code(s): E78.2 - Mixed hyperlipidemia Code(s): E78.5 - Hyperlipidemia, unspecified Status: Acute Assessment and Plan: Statin resumed, increased to 10mg daily. LDL goal <70 (8) Shock: Code(s): R57.9 - Shock, unspecified Status: Acute Assessment and Plan: Resolved. Levophed discontinued. (9) Acute respiratory failure: Code(s): J96.00 - Acute respiratory failure, unspecified whether with hypoxia or hypercapnia Status: Acute Assessment and Plan: Resolved. (10) Tobacco abuse: Code(s): Z72.0 - Tobacco use Status: Acute Assessment and Plan: Smoking cessation recommended (11) Pneumothorax on left: Code(s): J93.9 - Pneumothorax, unspecified Status: Acute Assessment and Plan: Improving. Subjective Date/time seen: 11/16/23 13:46 Interval history: Cardiology follow up for cardiac arrest, cardiomyopathy Patient extubated this morning. Patient remains lethargic but eyes open, awake, appearing weak, somewhat anxious, tearful. Family at bedside including .
--- NOTE | 2023-11-16 15:05 | HOMEO2EVAL ---
Evaluation was performed at [facility] Home Oxygen Evaluation RC: Home Oxygen (O2) Evaluation Start: 11/16/23 14:22 Freq: ONCE Status: Active Protocol: RPE Activity Type Activity Date Activity User E-sign Co-sign Detail Recorded Client Recorded Date Recorded By Document 11/16/23 14:30 [email or web address] [email or web address] 11/16/23 15:04 KRISTA Document 11/16/23 14:40 [email or web address] [email or web address] 11/16/23 15:04 KRISTA Document 11/16/23 14:45 KRISTA [email or web address] 11/16/23 15:04 KRISTA 11/16/23 11/16/23 11/16/23 14:30 14:40 14:45 Home O2 Evaluation [Oxygen] -Test Phase Resting Exercise Resting -Oxygen Delivery Room Air Room Air Room Air [Pulse Oximetry] -Pulse Oximetry (90-100 %) 96 93 96 [Pulse Rate] -Pulse Rate (60-100 beats/min) 82 92 86 [Evaluation] -Activity Tolerance Excellent [Exercise] -Ambulation Distance (feet) 200 -Ambulation Distance (meters) 60.95 [Comments] -Home Oxygen Evaluation Comments NO HOME O2 NEEDED. [Charges] -Evaluation Charges O2 Evaluation by Pulmonary
--- NOTE | 2023-11-16 15:05 | PCRCNOTE ---
HOME O2 EVAL COMPLETED. NO HOME O2 NEEDED AT REST OR WITH ACTIVITY.
--- NOTE | 2023-11-16 16:44 | PC.NURSE ---
Discharge instructions discussed with pt and - both verbalized understanding of instructions-Meds/activity/wound care- home via w/c to vehicle driven by
--- NOTE | 2023-12-10 12:50 | PM.DS ---
DS: Admitting Diagnosis Discharge Date 11/16/23 Admitting Diagnosis sob DS: Discharge Diagnosis Discharge Diagnosis (1) NSVT (nonsustained ventricular tachycardia): Code(s): I47.29 - Other ventricular tachycardia Status: Acute Assessment and Plan: Cardiology following continue amiodarone (2) Musculoskeletal chest pain: Code(s): R07.89 - Other chest pain Status: Acute Assessment and Plan: Pain control (3) Electrolyte abnormality: Code(s): E87.8 - Other disorders of electrolyte and fluid balance, not elsewhere classified Status: Acute Assessment and Plan: Hyponatremia hypo c hypokalemia mproved (4) CAD (coronary artery disease): Code(s): I25.10 - Atherosclerotic heart disease of [place] coronary artery without angina pectoris Status: Acute Assessment and Plan: Nonobstructive coronary artery disease on cardiac catheterization most likely patient has dilated cardiomyopathy most likely related to viral illness maximum medical treatment (5) QT prolongation: Code(s): R94.31 - Abnormal electrocardiogram [ECG] [EKG] Status: Acute Assessment and Plan: Cardiology following (6) Cardiomyopathy: Code(s): I42.9 - Cardiomyopathy, unspecified Status: Acute Assessment and Plan: Dilated cardiomyopathy associated with acute systolic heart failure required AICD placement complicated with pneumothorax Maximum medical therapy Diuresis as tolerated by blood pressure (7) Tobacco abuse: Code(s): Z72.0 - Tobacco use Status: Acute Assessment and Plan: Counseling (8) HLD (hyperlipidemia): Qualifiers: Hyperlipidemia type: mixed hyperlipidemia Qualified Code(s): E78.2 - Mixed hyperlipidemia Code(s): E78.5 - Hyperlipidemia, unspecified Status: Acute Assessment and Plan: Statin (9) Non-STEMI (non-ST elevated myocardial infarction): Code(s): I21.4 - Non-ST elevation (NSTEMI) myocardial infarction Status: Acute Assessment and Plan: Probably related to demand ischemia continue to monitor cardiology following (10) Rhabdomyolysis: Code(s): M62.82 - Rhabdomyolysis Status: Acute Assessment and Plan: Probably related to dilated cardiomyopathy resolved (11) Cardiac arrest with ventricular fibrillation: Code(s): I46.9 - Cardiac arrest, cause unspecified; I49.01 - Ventricular fibrillation Status: Acute Assessment and Plan: Associated with cardiogenic shock status post CPR cardioversion cardiac catheterization cardiology following continue amiodarone (12) Acute hyponatremia: Code(s): E87.1 - Hypo-osmolality and hyponatremia Status: Acute Assessment and Plan: Improved continue to monitor (13) Acute hypokalemia: Code(s): E87.6 - Hypokalemia Status: Acute Assessment and Plan: Replaced (14) Depression: Code(s): F32.9 - Major depressive disorder, single episode, unspecified Status: Acute Assessment and Plan: Continue home treatment (15) Pneumothorax on left: Code(s): J93.9 - Pneumothorax, unspecified Status: Acute Assessment and Plan: surgery was consulted conservative treated Plan Anticipate discharge in 1-2 days if no plan for chest tube placement DS: Summary Hospital Course Hospital Course: Assessment and Plan (1) NSVT (nonsustained ventricular tachycardia): ?Code(s): I47.29 - Other ventricular tachycardia ?Status:?Acute ?Assessment and Plan: Cardiology following continue amiodarone (2) Musculoskeletal chest pain: ?Code(s): R07.89 - Other chest pain ?Status:?Acute ?Assessment and Plan: Pain control (3) Electrolyte abnormality: ?Code(s): E87.8 - Other disorders of electrolyte and fluid balance, not elsewhere classified ?Status:?Acute ?Assessment and Plan: Hyponatremia hypo c hypokalemia mp
== END 2023-11-16 16:43 | disposition home or self-care (01) | DRG 853 ==
LOC: ANHED 16:01 → ANHICU 17:26 → ANHIMU 11-16 14:20 → ANHICU 11-17 09:16 → ANHIMU 11-17 09:16
PROVIDERS: Family Medicine; Internal Medicine; Internal Medicine Cardiovascular Disease; Physician Assistant; Student in an Organized Health Care Education/Training Program; Admitting Provider Hospitalist; Emergency Provider Emergency Medicine; PCP Family Medicine; Visit Provider Internal Medicine
PROC: 4A023N7 Measurement of Cardiac Sampling and Pressure, Left Heart, Percutaneous Approach (ICD-10-PCS; CPT 93452; principal; 2023-11-06 10:30)
PROC: 4A023N7 Measurement of Cardiac Sampling and Pressure, Left Heart, Percutaneous Approach (ICD-10-PCS; 2023-11-06 10:30)
PROC: 0JH608Z Insertion of Defibrillator Generator into Chest Subcutaneous Tissue and Fascia, Open Approach (ICD-10-PCS; CPT 33249; principal; 2023-11-11 10:00)
DX: A41.9 Sepsis, unspecified organism (principal); I46.9 Cardiac arrest, cause unspecified; I49.01 Ventricular fibrillation; I50.21 Acute systolic (congestive) heart failure; J96.00 Acute respiratory failure, unspecified whether with hypoxia or hypercapnia; K72.00 Acute and subacute hepatic failure without coma; R57.0 Cardiogenic shock; I47.10 Supraventricular tachycardia, unspecified; E87.1 Hypo-osmolality and hyponatremia; M62.82 Rhabdomyolysis; I42.8 Other cardiomyopathies; I51.81 Takotsubo syndrome; J93.9 Pneumothorax, unspecified; E87.6 Hypokalemia; R73.9 Hyperglycemia, unspecified; Z20.822 Contact with and (suspected) exposure to COVID-19; E78.5 Hyperlipidemia, unspecified; R31.9 Hematuria, unspecified; R94.31 Abnormal electrocardiogram [ECG] [EKG]; R07.89 Other chest pain; F32.A Depression, unspecified; F17.210 Nicotine dependence, cigarettes, uncomplicated; I25.10 Atherosclerotic heart disease of native coronary artery without angina pectoris; Z90.49 Acquired absence of other specified parts of digestive tract; Z90.710 Acquired absence of both cervix and uterus; Z98.1 Arthrodesis status
CPT/HCPCS: 31500; 33249; 36415; 36556; 36600; 70450; 71045; 71046; 71275; 80048; 80053; 80061; 80307; 81001; 82375; 82550; 82805; 82948; 83036; 83050; 83605; 83735; 83880; 84100; 84132; 84145; 84478; 84484; 85025; 85027; 85610; 85730; 86850; 86900; 86901; 87040; 87493; 87637; 87641; 92950; 93005; 93458; 94002; 94003; 94618; 94640; 96365; 96375; 97110; 97116; 97161; 97166; 97530; 97535; 99291; A9270; C1722; C1751; C1760; C1777; C1887; C1894; C8929; C9113; G0269; J0171; J0282; J0330; J0613; J1644; J1650; J1836; J1940; J2250; J2270; J2405; J2543; J2704; J2765; J2997; J3010; J3370; J3475; J3480; J7030; J7040; J7050; J7120; Q9957; Q9967

== ENCOUNTER 2023-11-19 10:08 | Outpatient (CLI) | payer MEDICARE, SELFPAY ==
[2023-11-19 11:06] LABS: Alanine Aminotransferase 20 U/L (6-35); Albumin Level 4.2 g/dL (3.5-5.1); Alkaline Phosphatase 119 U/L (38-126); Anion Gap 8 mmol/L (8-16); Aspartate Amino Transferase 24 U/L (14-36); Bilirubin,Total 0.5 mg/dL (0.2-1.3); Blood Urea Nitrogen 18 mg/dL (7-17); Calcium 9.6 mg/dL (8.4-10.2); Carbon Dioxide 28 mmol/L (22-30); Chloride 99 mmol/L (98-107); Estimated Glomerular Filt Rate > 60; Glucose 128 mg/dL (65-110); Potassium 4.4 mmol/L (3.4-5.0); Sodium 135 mmol/L (137-145)
== END 2023-11-19 10:09 | disposition home or self-care (01) ==
LOC: ANHLAB 10:09
PROVIDERS: PCP Family Medicine; Visit Provider Internal Medicine
DX: I50.21 Acute systolic (congestive) heart failure (principal)
CPT/HCPCS: 36415; 80053

== ENCOUNTER 2023-12-29 13:18 | Outpatient (CLI) | payer MEDICARE, SELFPAY | END 2023-12-29 13:19 | disposition home or self-care (01) | LOC: ANHLAB 13:21 | PROVIDERS: PCP Family Medicine; Visit Provider Internal Medicine Cardiovascular Disease | DX: T14.8XXD Other injury of unspecified body region, subsequent encounter (principal); I46.9 Cardiac arrest, cause unspecified; I49.01 Ventricular fibrillation; Z95.810 Presence of automatic (implantable) cardiac defibrillator; X58.XXXD Exposure to other specified factors, subsequent encounter | CPT/HCPCS: 87040 ==

== ENCOUNTER 2024-03-23 11:15 | Outpatient (RCR) | payer MEDICARE, SELFPAY | END 2024-03-23 12:50 | disposition home or self-care (01) | LOC: ANHCPREHAB 11:15 | PROVIDERS: PCP Family Medicine; Visit Provider Internal Medicine Cardiovascular Disease | DX: I42.9 Cardiomyopathy, unspecified (principal); I46.2 Cardiac arrest due to underlying cardiac condition | CPT/HCPCS: 93798 ==

== ENCOUNTER 2024-09-27 00:31 | Day surgery (SDC) | payer MEDICARE, SELFPAY ==
[2024-09-01 14:42] VITALS: BMI 24.7
--- NOTE | 2024-09-17 10:19 | SUR.PREOP ---
Pt called this am to cancel her appointment on 09/18 due to provider availability. Patient voiced understanding and rescheduled to 09/27 at 730.KM
[2024-09-27 06:26] VITALS: BP 140/80; PULSE 79; RESP 16; TEMP 36.4; O2SAT 97; BMI 24.6
[2024-09-27] MEDS: LACTATED RINGERS 1,000 ML 150 ML IV CONT (06:45)
--- NOTE | 2024-09-27 07:25 | WPDANESEPPF ---
Anes - Initial Pre Proc Eval Procedure: Operation Date: 09/27/24 07:30 Proposed Procedures p Screening Colonoscopy - Ayush Snider MD Date/Time: 09/27/24 07:25 Surgeon: Ayush Snider MD Pre Op Diagnosis: Hx colon polyps Patient Data Age: 64 Gender: F Height: 1.57 m Weight: 61.2 kg Last Vital Signs Temp 97.6 F 09/27/24 06:26 Pulse 79 09/27/24 06:26 Resp 16 09/27/24 06:26 BP 140/80 09/27/24 06:26 Pulse Ox 97 09/27/24 06:26 O2 Del Method Room Air 09/27/24 06:26 Allergies Allergy/AdvReac Type Severity Reaction Status Date / Time No Known Allergies Allergy Unknown NONE Verified 09/27/24 06:23 Home Medications ?Medication ?Instructions ?Recorded ?Confirmed ?Type sertraline 100 mg tablet (Zoloft) 100 mg PO QAM 02/28/21 09/27/24 History rosuvastatin 5 mg tablet 5 mg PO DAILY 06/26/22 09/01/24 History acetaminophen 325 mg tablet 650 mg (2 x 325 mg) PO Q4H PRN 11/16/23 09/01/24 Rx Headache, Fever, Pain #14 tabs amiodarone 200 mg tablet (Pacerone) 200 mg PO BID #60 tabs 11/16/23 09/01/24 Rx empagliflozin 10 mg tablet 10 mg PO DAILY #60 tabs 11/16/23 09/27/24 Rx (Jardiance) furosemide 40 mg tablet 40 mg PO DAILY #30 tabs 11/16/23 09/01/24 Rx metoprolol succinate 25 mg 25 mg PO QAM #60 tabs 11/16/23 09/27/24 Rx tablet,extended release 24 hr (Toprol XL) pantoprazole 20 mg tablet,delayed 20 mg PO QAM #30 tabs 11/16/23 09/01/24 Rx release (Protonix) potassium chloride 20 mEq 20 meq PO DAILY #10 tabs 11/16/23 09/01/24 Rx tablet,extended release (K-Tab) sacubitril 24 mg-valsartan 26 mg 1 tab PO Q12HR #60 tabs 11/16/23 09/01/24 Rx tablet (Entresto) spironolactone 25 mg tablet 25 mg PO QAM #60 tabs 11/16/23 09/01/24 Rx aspirin 81 mg tablet,delayed 81 mg PO DAILY 09/01/24 09/27/24 History release (Adult Aspirin Regimen) denosumab 60 mg/mL subcutaneous 60 mg subcut [id number] 09/01/24 09/01/24 History syringe (Prolia) furosemide 20 mg tablet 20 mg PO DAILY 09/01/24 09/27/24 History lidocaine 5 % topical patch 2 patch transdermal DAILY PRN pain 09/01/24 09/01/24 History (Lidoderm) mupirocin 2 % topical ointment 1 applic topical TID PRN PSORIASIS 09/01/24 09/01/24 History rosuvastatin 20 mg tablet 20 mg PO HS 09/01/24 09/27/24 History Patient hx anesthesia problems: none Family hx anesthesia problems: none Results Review: All pre-operative results and documents have been reviewed as part of the pre-operative evaluation. [facility] Past Medical History Medical History Acquired cervical spine ankylosis ACDF @ C5-C6 Depression Fracture of distal radius and ulna HLD (hyperlipidemia) Smoker Surgical History Surgical History History of appendectomy History of History of hernia repair History of hysterectomy History of parathyroidectomy Family History Family History (Updated 12/24/23 @ 08:45 by Neetu Cooper RN) Father Acute myocardial infarction Hypertension Diabetes mellitus Mother Hypertension Social History Social History Smoking packs per day: 0.5 Smoking cigarettes per day: 10.0 Years smoked: 25 Smoking pack-years: 12.50 Smoking status: Current some day smoker Tobacco type: cigarettes Second hand tobacco smoke exposure: No Smoking end date: 12/17/23 Additional smoking assessment comments: quit the day of her [place] Alcohol intake: current Drinks per week: 3 Alcohol use details: drinks Substance use: never Substance use type: does not use Living arrangements: with family Spiritual care concerns: No Anes - Eval Final PreProcedure Day of Procedure 09/27/24 07:25 Patient weight: normal Heart: regular rate and rhythm Lungs: clear to auscultation Airway: Mallampati scale class II Neurological: alert and oriented Last oral intake: >/= 8 hours ASA classification: III Emergent: no Anesthetic plan: proceed Anesthesia type and monitoring: general GIVS and standard monitoring Results Review: All pre-operative results and documents have been reviewed as part of the pre-operative evaluation. Informed Consent: The patient's anesthetic plan and its attendant risks and benefits were discussed with the patient/family/POA. Questions were solicited and answers provided to the satisfaction of the patient/family/POA.
--- NOTE | 2024-09-27 07:33 | PM.IMHP ---
H&P: HPI History of Present Illness Date/Time: 09/27/24 07:33 Chief Complaint: History of Colon polyps Narrative: The patient has a history of colonic polyps, the last colonoscopy was approximately 5 years ago. There is no family history of colorectal cancer Review of Systems Review of Systems: All systems reviewed & are unremarkable except as noted in HPI and below PMFSH Past Medical History Medical History Acquired cervical spine ankylosis ACDF @ C5-C6 Depression Fracture of distal radius and ulna HLD (hyperlipidemia) Smoker Surgical History Surgical History History of appendectomy History of History of hernia repair History of hysterectomy History of parathyroidectomy Family History Family History (Updated 12/24/23 @ 08:45 by Neetu Cooper RN) Father Acute myocardial infarction Hypertension Diabetes mellitus Mother Hypertension Social History Social History Smoking packs per day: 0.5 Smoking cigarettes per day: 10.0 Years smoked: 25 Smoking pack-years: 12.50 Smoking status: Current some day smoker Tobacco type: cigarettes Second hand tobacco smoke exposure: No Smoking end date: 12/17/23 Additional smoking assessment comments: quit the day of her [place] Alcohol intake: current Drinks per week: 3 Alcohol use details: drinks Substance use: never Substance use type: does not use Living arrangements: with family Spiritual care concerns: No Meds Home Medications and Allergies Home Medications ?Medication ?Instructions ?Recorded ?Confirmed ?Type sertraline 100 mg tablet (Zoloft) 100 mg PO QAM 02/28/21 09/27/24 History rosuvastatin 5 mg tablet 5 mg PO DAILY 06/26/22 09/01/24 History acetaminophen 325 mg tablet 650 mg (2 x 325 mg) PO Q4H PRN 11/16/23 09/01/24 Rx Headache, Fever, Pain #14 tabs amiodarone 200 mg tablet (Pacerone) 200 mg PO BID #60 tabs 11/16/23 09/01/24 Rx empagliflozin 10 mg tablet 10 mg PO DAILY #60 tabs 11/16/23 09/27/24 Rx (Jardiance) furosemide 40 mg tablet 40 mg PO DAILY #30 tabs 03/05/24 12/20/24 Rx metoprolol succinate 25 mg 25 mg PO QAM #60 tabs 11/16/23 09/27/24 Rx tablet,extended release 24 hr (Toprol XL) pantoprazole 20 mg tablet,delayed 20 mg PO QAM #30 tabs 11/16/23 09/01/24 Rx release (Protonix) potassium chloride 20 mEq 20 meq PO DAILY #10 tabs 11/16/23 09/01/24 Rx tablet,extended release (K-Tab) sacubitril 24 mg-valsartan 26 mg 1 tab PO Q12HR #60 tabs 11/16/23 09/01/24 Rx tablet (Entresto) spironolactone 25 mg tablet 25 mg PO QAM #60 tabs 11/16/23 09/01/24 Rx aspirin 81 mg tablet,delayed 81 mg PO DAILY 09/01/24 09/27/24 History release (Adult Aspirin Regimen) denosumab 60 mg/mL subcutaneous 60 mg subcut [id number] 09/01/24 09/01/24 History syringe (Prolia) furosemide 20 mg tablet 20 mg PO DAILY 09/01/24 09/27/24 History lidocaine 5 % topical patch 2 patch transdermal DAILY PRN pain 09/01/24 09/01/24 History (Lidoderm) mupirocin 2 % topical ointment 1 applic topical TID PRN PSORIASIS 09/01/24 09/01/24 History rosuvastatin 20 mg tablet 20 mg PO HS 09/01/24 09/27/24 History Allergies Allergy/AdvReac Type Severity Reaction Status Date / Time No Known Allergies Allergy Unknown NONE Verified 09/27/24 06:23 Vital Signs Vital Signs - 24 hr 09/27/24 06:26 Temperature 97.6 F Pulse Rate 79 Respiratory Rate 16 Blood Pressure 140/80 Pulse Oximetry 97 Oxygen Delivery Room Air Exam Const: General: cooperative and healthy appearing Resp: Effort & Inspection: normal respiratory effort and able to speak in complete sentences Auscultation: clear to auscultation bilaterally Cardio: Rate: regular rate Rhythm: regular rhythm GI: Inspection: normal to inspection GI Palp: No No hepatosplenomegaly present Auscultation: normal bowel sounds Rectal Exam: deferred Skin: General skin exam: normal color Psych: Appearance: grossly normal Mental Status: mental status grossly normal Assessment and Plan Assessment and plan (1) History of colonic polyps: Code(s): Z86.0100 - Personal history of colon polyps, unspecified Status: Acute Assessment and Plan: The patient is deemed a good candidate for the procedure. Consent signed. Will proceed.
[2024-09-27 07:59] VITALS: BP 95/46; PULSE 74; RESP 14; O2SAT 99
[2024-09-27 08:09] VITALS: BP 97/52; PULSE 77; RESP 20; O2SAT 99
[2024-09-27 08:19] VITALS: BP 122/81; PULSE 72; RESP 18; O2SAT 99
== END 2024-09-27 08:28 | disposition home or self-care (01) ==
PROVIDERS: PCP Family Medicine; Visit Provider Internal Medicine Gastroenterology
PROC: 0DJD8ZZ Inspection of Lower Intestinal Tract, Via Natural or Artificial Opening Endoscopic (ICD-10-PCS; CPT 45378; principal; 2024-09-27 07:30)
DX: Z12.11 Encounter for screening for malignant neoplasm of colon (principal); Z86.0100 Personal history of colon polyps, unspecified; Z87.891 Personal history of nicotine dependence; Z79.84 Long term (current) use of oral hypoglycemic drugs
CPT/HCPCS: G0105; J2003; J2704; J7120